=== PATIENT | male | born 1955 | race Hispanic/Latino ===

== ENCOUNTER → 2017-05-30 | Outpatient (CLI) | payer OTHER ==
[~2017-05-30] MED LIST: AMLO10TA2 PO; AZIT250T9 PO; CETI5TAB12 PO; DOXA2TAB2 PO; DOXY100T2 PO; FOLI1CAP23 PO; FOLI1TAB61 PO; GABA-529 PO; HYDR-4153 PO; METO-409 PO; OSEL30CA2 PO; SIMV10TA6 PO; WARF-57 PO; WARF5TAB76 PO; WARF7.5T49 PO
== END | disposition home or self-care (01) ==
LOC: RAH 16:07
PROVIDERS: ATTEND Internal Medicine
DX: M25.562 Pain in left knee (principal); R07.9 Chest pain, unspecified; R07.81 Pleurodynia
CPT/HCPCS: 71046; 71100; 73562

== ENCOUNTER 2017-06-04 22:50 | Inpatient (IN) | payer OTHER ==
[~2017-06-04] VITALS: Ht 180.3 cm; Wt 70.5 kg
[~2017-06-04 22:50] MED LIST changes: -FOLI1CAP23 PO; -GABA-529 PO; -WARF-57 PO; -WARF5TAB76 PO; -WARF7.5T49 PO
[2017-06-04 23:39] LABS: BASOPHILS % (AUTO) 0.6 % (0.0-5.0); EOSINOPHILS % (AUTO) 0.3 % (0.0-8.0); HEMATOCRIT 35.5 % (42-54); LYMPHOCYTES % (AUTO) 4.6 % (21.0-51.0); MEAN CORPUSCULAR HEMOGLOBIN 32.1 pg (27.0-33.0); MEAN CORPUSCULAR VOLUME 94.5 fL (79-99); MONOCYTES % (AUTO) 6.2 % (3.0-13.0); NEUTROPHILS % (AUTO) 88.3 % (40.0-77.0); PLATELET COUNT (AUTO) 183 K/uL (130-400); RED BLOOD CELL COUNT(AUTO) 3.75 MIL/uL (4.50-6.20); RED CELL DISTRIBUTION WIDTH 15.1 % (11.0-15.5); WHITE BLOOD COUNT (AUTO) 8.1 K/uL (4.8-10.8)
[2017-06-04 23:41] LABS: INR 1.09 (0.85-1.15); PARTIAL THROMBOPLASTIN TIME 24.2 SEC (26.3-35.5); PROTHROMBIN TIME 11.4 SEC (9.6-11.6)
[2017-06-04] MEDS ORDERED: NITROGLYCERIN 1GM/1 INCH PACKET TD ONE (23:51)
[2017-06-04 23:52] LABS: ALBUMIN 3.8 g/dL (3.5-5.0); BILIRUBIN,TOTAL 0.7 mg/dL (0.2-1.0); CREATINE KINASE MB 1.2 ng/mL (0.5-3.6); CREATININE 6.5 mg/dL (0.5-1.5); TOTAL PROTEIN, SERUM 7.5 g/dL (6.0-8.3)
[2017-06-04 23:57] LABS: POTASSIUM 5.9 mmol/L (3.5-5.1)
[2017-06-05] VITALS (25 sets, daily range): BP systolic 137–181; BP diastolic 69–101
[2017-06-05 00:02] LABS: ABG BASE EXCESS 2.3 mmol/L (-2.0-3.0); ABG HCO3 27.7 mmol/L (21.0-28.0); ABG PCO2 46 mmHg (35-48)
[2017-06-05 00:16] LABS: B-TYPE NATRIURETIC PEPTIDE > 5000 pg/mL (0-100)
[2017-06-05] MEDS ORDERED: MEROPENEM 1 GM VIAL ONE (00:23)
[2017-06-05] MEDS ORDERED: VANCOMYCIN 1GM+NS 250ML 250 ML IV ONE (01:04)
[2017-06-05] MEDS ORDERED: MEROPENEM 500MG+NS 50ML 50 ML IV SCH (01:30)
[2017-06-05] MEDS: INSULIN HUMULIN R 100 UNIT/ML 3ML SQ SCH ×4 (01:30→18:25)
[2017-06-05] MEDS ORDERED: GLUCAGON 1MG KIT 1 MG ML IM PRN (01:30)
[2017-06-05] MEDS ORDERED: GUAIFENESIN-DM 200/20 MG 10 ML PO PRN (01:30)
[2017-06-05] MEDS ORDERED: VANCOMYCIN 1GM+NS 250ML 250 ML IV SCH (01:30)
[2017-06-05] MEDS ORDERED: DEXTROSE 50%-WATER 50 ML DISP.SYRIN IV PRN (01:30)
[2017-06-05] MEDS ORDERED: ONDANSETRON HCL 4 MG/2 ML VIAL IV PRN (01:30)
[2017-06-05] MEDS ORDERED: VANCOMYCIN PROTOCOL PER PHARMACY IV SCH (03:00)
[2017-06-05] MEDS: MEROPENEM 500 MG VIAL IVP SCH ×2 (03:00→15:00)
[2017-06-05] MEDS: HYDRALAZINE HCL 20 MG/ML VIAL IV PRN (03:53)
[2017-06-05 06:00] LABS: ABG BASE EXCESS 4.8 mmol/L (-2.0-3.0); ABG HCO3 29.7 mmol/L (21.0-28.0); ABG OXYGEN SATURATION 95.3 % (95.0-99.0); ABG PCO2 45 mmHg (35-48)
[2017-06-05] MEDS ORDERED: COMPOUND PO MISCELLANEOUS 1 EACH MISC MISC PRN (06:30)
[2017-06-05] MEDS: IPRATROPIUM/ALBUTEROL SULFATE 3 ML SOLUTION IH SCH ×4 (07:19→23:25)
[2017-06-05] MEDS: ENOXAPARIN SODIUM 40 MG/0.4 ML SYRINGE SQ SCH (08:57)
[2017-06-05] MEDS: FAMOTIDINE/PF 20 MG/2 ML VIAL IV SCH (08:57)
[2017-06-05] MEDS ORDERED: OSELTAMIVIR PHOSPHATE 75 MG CAP PO SCH (09:00)
[2017-06-05] MEDS: OSELTAMIVIR SUSP 15 MG/ML (6 CAPS/29ML) PO SCH ×2 (11:08)
[2017-06-05] MEDS ORDERED: 0.9% SODIUM CHLORIDE 250 ML IV BAG IV PRN (15:45)
[2017-06-05] MEDS ORDERED: SODIUM CHLORIDE 0.9% 1000ML 1,000 ML IV PRN (15:45)
[2017-06-05] MEDS ORDERED: ALBUMIN (HUMAN) 25% 100 ML IV PRN (15:45)
[2017-06-05] MEDS: ACETAMINOPHEN 325 MG TAB PO PRN (20:28)
[2017-06-05 23:36] LABS: APPEARANCE,URINE Clear (CLEAR); BILIRUBIN,URINE Negative (NEGATIVE); COLOR,URINE Yellow (YELLOW); GLUCOSE, URINE (UA) 250 mg/dL (NEGATIVE); KETONES,URINE Negative (NEGATIVE); LEUKOCYTE ESTERASE ,URINE Negative (NEGATIVE); NITRATE,URINE Negative (NEGATIVE); OCCULT BLOOD,URINE Negative (NEGATIVE); PH,URINE >=9.0 (5.0-8.0); PROTEIN,URINE >=1000 (NEGATIVE); UROBILINOGEN,URINE 0.2 mg/dL (0.2-1.0)
[2017-06-05 23:48] LABS: BACTERIA,URINE Rare /HPF (None Seen); RBC,URINE None Seen /HPF (0-1)
[2017-06-06] VITALS (23 sets, daily range): BP systolic 106–186; BP diastolic 63–105
[2017-06-06] MEDS: ACETAMINOPHEN 325 MG TAB PO PRN (01:15)
[2017-06-06] MEDS: INSULIN HUMULIN R 100 UNIT/ML 3ML SQ SCH ×5 (01:30→21:00)
[2017-06-06] MEDS: MEROPENEM 500 MG VIAL IVP SCH ×2 (03:38→17:12)
[2017-06-06 03:54] LABS: MEAN CORPUSCULAR HEMOGLOBIN 32.1 pg (27.0-33.0); MEAN CORPUSCULAR HGB CONC 33.9 g/dL (32.0-36.0); MEAN CORPUSCULAR VOLUME 94.6 fL (79-99); PLATELET COUNT (AUTO) 148 K/uL (130-400); RED BLOOD CELL COUNT(AUTO) 3.28 MIL/uL (4.50-6.20); RED CELL DISTRIBUTION WIDTH 15.7 % (11.0-15.5); WHITE BLOOD COUNT (AUTO) 6.5 K/uL (4.8-10.8)
[2017-06-06 04:10] LABS: ALBUMIN 2.8 g/dL (3.5-5.0); CREATININE 6.5 mg/dL (0.5-1.5); MAGNESIUM 2.1 mg/dL (1.80-2.40); PHOSPHORUS 6.5 mg/dL (2.5-4.9); POTASSIUM 4.6 mmol/L (3.5-5.1)
[2017-06-06] MEDS: IPRATROPIUM/ALBUTEROL SULFATE 3 ML SOLUTION IH SCH ×3 (06:47→18:52)
[2017-06-06 08:16] LABS: ABG BASE EXCESS 1.8 mmol/L (-2.0-3.0); ABG HCO3 27.5 mmol/L (21.0-28.0); ABG OXYGEN SATURATION 89.1 % (95.0-99.0); ABG PCO2 47 mmHg (35-48)
[2017-06-06] MEDS: OSELTAMIVIR SUSP 15 MG/ML (6 CAPS/29ML) PO SCH ×2 (09:00)
[2017-06-06] MEDS: FAMOTIDINE/PF 20 MG/2 ML VIAL IV SCH (09:00)
[2017-06-06] MEDS: ENOXAPARIN SODIUM 40 MG/0.4 ML SYRINGE SQ SCH (09:00)
[2017-06-06] MEDS: HYDRALAZINE HCL 20 MG/ML VIAL IV PRN (09:01)
[2017-06-06] MEDS: DOXAZOSIN MESYLATE 2 MG TABLET PO SCH (17:12)
[2017-06-06] MEDS: ATORVASTATIN CALCIUM 10 MG TABLET PO SCH (17:12)
[2017-06-06] MEDS: EPOETIN ALFA 3,000 UNIT/ML ML SQ SCH (17:59)
[2017-06-06] MEDS: HYDRALAZINE HCL 25 MG TABLET PO SCH (20:23)
[2017-06-07] VITALS (26 sets, daily range): BP systolic 115–174; BP diastolic 55–95
[2017-06-07] MEDS: IPRATROPIUM/ALBUTEROL SULFATE 3 ML SOLUTION IH SCH ×4 (00:43→19:17)
[2017-06-07] MEDS: MEROPENEM 500 MG VIAL IVP SCH ×2 (02:47→14:03)
[2017-06-07] MEDS: HYDRALAZINE HCL 20 MG/ML VIAL IV PRN ×2 (02:47→11:58)
[2017-06-07 03:43] LABS: MEAN CORPUSCULAR HEMOGLOBIN 32.2 pg (27.0-33.0); MEAN CORPUSCULAR HGB CONC 34.2 g/dL (32.0-36.0); MEAN CORPUSCULAR VOLUME 94.3 fL (79-99); NUCLEATED RED BLOOD CELLS 0.1 % (0.0-0.19); PLATELET COUNT (AUTO) 135 K/uL (130-400); RED CELL DISTRIBUTION WIDTH 15.5 % (11.0-15.5); WHITE BLOOD COUNT (AUTO) 3.6 K/uL (4.8-10.8)
[2017-06-07 04:00] LABS: CREATININE 5.4 mg/dL (0.5-1.5); POTASSIUM 4.1 mmol/L (3.5-5.1)
[2017-06-07] MEDS: INSULIN HUMULIN R 100 UNIT/ML 3ML SQ SCH ×4 (04:58→21:00)
[2017-06-07] MEDS: VANCOMYCIN 1GM+NS 250ML 250 ML IV SCH (05:37)
[2017-06-07] MEDS: HYDRALAZINE HCL 25 MG TABLET PO SCH ×2 (07:58→20:42)
[2017-06-07] MEDS: METOPROLOL TARTRATE 50 MG TAB PO SCH ×2 (07:58→20:42)
[2017-06-07] MEDS: AMLODIPINE BESYLATE 5 MG TAB PO SCH (07:58)
[2017-06-07] MEDS: FAMOTIDINE/PF 20 MG/2 ML VIAL IV SCH (07:58)
[2017-06-07] MEDS: FOLIC ACID/VITAMIN B COMP W-C 1 MG CAPSULE PO SCH (07:58)
[2017-06-07] MEDS: OSELTAMIVIR SUSP 15 MG/ML (6 CAPS/29ML) PO SCH ×2 (08:00)
[2017-06-07] MEDS ORDERED: WARFARIN SODIUM 5 MG TAB PO SCH (09:00)
[2017-06-07] MEDS ORDERED: HEPARIN 25000 UNITS/250 ML D5W 250 ML IV SCH (09:00)
[2017-06-07] MEDS: ACETAMINOPHEN 325 MG TAB PO PRN (11:58)
[2017-06-07] MEDS ORDERED: HEPARIN SODIUM 5000UNIT/ML 1ML VIAL IV STA (14:27)
[2017-06-07] MEDS: ATORVASTATIN CALCIUM 10 MG TABLET PO SCH (17:26)
[2017-06-07] MEDS: DOXAZOSIN MESYLATE 2 MG TABLET PO SCH (17:26)
[2017-06-07] MEDS ORDERED: LORAZEPAM 2 MG/ML 1 ML VIAL IM PRN (18:00)
[2017-06-07] MEDS: MORPHINE SULFATE 2 MG/ML 1ML SYG IVP PRN (18:00)
[2017-06-08] VITALS (19 sets, daily range): BP systolic 151–176; BP diastolic 73–100
[2017-06-08] MEDS: IPRATROPIUM/ALBUTEROL SULFATE 3 ML SOLUTION IH SCH ×3 (01:37→11:20)
[2017-06-08] MEDS: MEROPENEM 500 MG VIAL IVP SCH ×2 (03:02→15:49)
[2017-06-08 04:03] LABS: HEMATOCRIT 29.4 % (42-54); MEAN CORPUSCULAR HGB CONC 36.2 g/dL (32.0-36.0); MEAN CORPUSCULAR VOLUME 93.9 fL (79-99); PLATELET COUNT (AUTO) 113 K/uL (130-400); RED BLOOD CELL COUNT(AUTO) 3.13 MIL/uL (4.50-6.20); RED CELL DISTRIBUTION WIDTH 15.1 % (11.0-15.5); WHITE BLOOD COUNT (AUTO) 2.7 K/uL (4.8-10.8)
[2017-06-08 04:04] LABS: CREATININE 7.3 mg/dL (0.5-1.5); POTASSIUM 4.2 mmol/L (3.5-5.1)
[2017-06-08 04:06] LABS: PARTIAL THROMBOPLASTIN TIME 78.8 SEC (26.3-35.5); PROTHROMBIN TIME 10.5 SEC (9.6-11.6)
[2017-06-08] MEDS: INSULIN HUMULIN R 100 UNIT/ML 3ML SQ SCH ×4 (06:05→21:00)
[2017-06-08] MEDS: WARFARIN SODIUM 5 MG TAB PO SCH ×2 (09:00→16:22)
[2017-06-08] MEDS: HYDRALAZINE HCL 25 MG TABLET PO SCH ×2 (10:56→20:30)
[2017-06-08] MEDS: FOLIC ACID/VITAMIN B COMP W-C 1 MG CAPSULE PO SCH (10:56)
[2017-06-08] MEDS: AMLODIPINE BESYLATE 5 MG TAB PO SCH (10:56)
[2017-06-08] MEDS: FAMOTIDINE/PF 20 MG/2 ML VIAL IV SCH (10:56)
[2017-06-08] MEDS: OSELTAMIVIR SUSP 15 MG/ML (6 CAPS/29ML) PO SCH ×2 (10:58)
[2017-06-08] MEDS: METOPROLOL TARTRATE 50 MG TAB PO SCH ×2 (10:58→20:30)
[2017-06-08] MEDS ORDERED: METOPROLOL TARTRATE 25 MG TAB ONE (12:22)
[2017-06-08 15:33] LABS: GLUCOSE,BODY FLUID 115 mg/dL (1-40)
[2017-06-08] MEDS: EPOETIN ALFA 3,000 UNIT/ML ML SQ SCH (15:50)
[2017-06-08] MEDS: ATORVASTATIN CALCIUM 10 MG TABLET PO SCH (16:20)
[2017-06-08] MEDS: DOXAZOSIN MESYLATE 2 MG TABLET PO SCH (16:20)
[2017-06-08 17:22] LABS: APPEARANCE BODY FLUID SLIGHTLY CLOUDY (CLEAR); COLOR,BODY FLUID YELLOW (LT YELLOW); SPECIMENTYPE,BODY FLUID THORACENTESIS
[2017-06-08 17:23] LABS: BODY FLUID RBC 79 /cu. mm.; BODY FLUID WBC 269 /cu. mm.; TOTAL VOLUME,BODY FLUID 925 mL
[2017-06-08 17:26] LABS: PH, BODY FLUID 8
[2017-06-08] MEDS: IPRATROPIUM 0.5 MG/2.5 ML INH IH PRN ×2 (18:09→23:11)
[2017-06-08 19:25] LABS: BF LYMPHOCYTE 57 %; BF MONOCYTE 3 %; BF OTHER CELLS 23
[2017-06-08] MEDS: ACETAMINOPHEN 325 MG TAB PO PRN (19:49)
[2017-06-09 04:15] VITALS: BP 146/66
[2017-06-09 04:21] LABS: WHITE BLOOD COUNT (AUTO) 2.7 K/uL (4.8-10.8)
[2017-06-09 04:25] LABS: POTASSIUM 3.9 mmol/L (3.5-5.1)
[2017-06-09 04:30] LABS: HEMATOCRIT 31.3 % (42-54); MEAN CORPUSCULAR HGB CONC 35.3 g/dL (32.0-36.0); MEAN CORPUSCULAR VOLUME 93.4 fL (79-99); PLATELET COUNT (AUTO) 109 K/uL (130-400); RED BLOOD CELL COUNT(AUTO) 3.35 MIL/uL (4.50-6.20); RED CELL DISTRIBUTION WIDTH 14.8 % (11.0-15.5)
[2017-06-09 04:49] LABS: BAND NEUTROPHILS % (MANUAL) 4 % (0-2); EOSINOPHILS % (MANUAL) 4 % (1-6); LYMPHOCYTES % (MANUAL) 20 % (22-44); MONOCYTES % (MANUAL) 8 % (2-9); SEGMENTED NEUTROPHILS % 64 % (40-70)
[2017-06-09 04:50] LABS: MAN.DIFF COMMENT-IMPRESSION MANUAL DIFFERENTIAL; PLATELET MORPHOLOGY COMMENT DECREASED
[2017-06-09] MEDS: MEROPENEM 500 MG VIAL IVP SCH ×4 (05:10→22:20)
[2017-06-09] MEDS: VANCOMYCIN 1GM+NS 250ML 250 ML IV SCH (05:34)
[2017-06-09] MEDS: INSULIN HUMULIN R 100 UNIT/ML 3ML SQ SCH ×4 (06:35→20:47)
[2017-06-09] MEDS: IPRATROPIUM 0.5 MG/2.5 ML INH IH PRN ×3 (06:49→18:58)
[2017-06-09 07:00] VITALS: BP 163/84
[2017-06-09 09:32] LABS: PROTHROMBIN TIME 10.5 SEC (9.6-11.6)
[2017-06-09] MEDS: FOLIC ACID/VITAMIN B COMP W-C 1 MG CAPSULE PO SCH (09:38)
[2017-06-09] MEDS: METOPROLOL TARTRATE 50 MG TAB PO SCH ×2 (09:38→20:29)
[2017-06-09] MEDS: AMLODIPINE BESYLATE 5 MG TAB PO SCH (09:38)
[2017-06-09] MEDS: HYDRALAZINE HCL 25 MG TABLET PO SCH ×2 (09:38→20:29)
[2017-06-09] MEDS: FAMOTIDINE/PF 20 MG/2 ML VIAL IV SCH (09:38)
[2017-06-09] MEDS: OSELTAMIVIR SUSP 15 MG/ML (6 CAPS/29ML) PO SCH ×2 (09:42)
[2017-06-09 11:30] VITALS: BP 166/94
[2017-06-09] MEDS: WARFARIN SODIUM 5 MG TAB PO SCH (15:41)
[2017-06-09] MEDS: DOXAZOSIN MESYLATE 2 MG TABLET PO SCH (15:41)
[2017-06-09] MEDS: ATORVASTATIN CALCIUM 10 MG TABLET PO SCH (15:42)
[2017-06-09 16:00] VITALS: BP 144/75
[2017-06-09 16:15] LABS: INR 1.02 (0.85-1.15); PROTHROMBIN TIME 10.7 SEC (9.6-11.6)
[2017-06-09] MEDS ORDERED: HEPARIN 25000 UNITS/250 ML D5W 250 ML IV PRN (18:45)
[2017-06-09 19:28] VITALS: BP 134/66
[2017-06-09] MEDS ORDERED: HEPARIN SODIUM 5000UNIT/ML 1ML VIAL ONE (20:25)
[2017-06-09] MEDS ORDERED: HEPARIN SODIUM 5000UNIT/ML 1ML VIAL IV ONE (21:00)
[2017-06-09 23:39] VITALS: BP 140/70
[2017-06-10] VITALS (7 sets, daily range): BP systolic 138–172; BP diastolic 69–85
[2017-06-10] MEDS: IPRATROPIUM 0.5 MG/2.5 ML INH IH PRN ×3 (00:21→19:22)
[2017-06-10 02:41] LABS: MEAN CORPUSCULAR HEMOGLOBIN 31.8 pg (27.0-33.0); MEAN CORPUSCULAR HGB CONC 34.4 g/dL (32.0-36.0); MEAN CORPUSCULAR VOLUME 92.4 fL (79-99); PLATELET COUNT (AUTO) 96 K/uL (130-400); RED BLOOD CELL COUNT(AUTO) 3.36 MIL/uL (4.50-6.20); RED CELL DISTRIBUTION WIDTH 15.3 % (11.0-15.5)
[2017-06-10 02:56] LABS: CREATININE 8.1 mg/dL (0.5-1.5)
[2017-06-10] MEDS: INSULIN HUMULIN R 100 UNIT/ML 3ML SQ SCH ×4 (06:02→21:00)
[2017-06-10] MEDS: EPOETIN ALFA 3,000 UNIT/ML ML SQ SCH (09:00)
[2017-06-10] MEDS ORDERED: IOPAMIDOL-370 100 ML VIAL IV ONE (09:28)
[2017-06-10 11:02] LABS: INR 1.18 (0.85-1.15); PROTHROMBIN TIME 12.4 SEC (9.6-11.6)
[2017-06-10 11:36] LABS: PARTIAL THROMBOPLASTIN TIME 115.1 SEC (26.3-35.5)
[2017-06-10] MEDS ORDERED: LORAZEPAM 2 MG/ML 1 ML VIAL IVP PRN (15:00)
[2017-06-10] MEDS: FOLIC ACID/VITAMIN B COMP W-C 1 MG CAPSULE PO SCH (15:07)
[2017-06-10] MEDS: AMLODIPINE BESYLATE 5 MG TAB PO SCH (15:07)
[2017-06-10] MEDS: METOPROLOL TARTRATE 50 MG TAB PO SCH ×2 (15:09→21:21)
[2017-06-10] MEDS: FAMOTIDINE/PF 20 MG/2 ML VIAL IV SCH (15:24)
[2017-06-10] MEDS: HYDRALAZINE HCL 25 MG TABLET PO SCH ×2 (15:24→21:21)
[2017-06-10] MEDS: MEROPENEM 500 MG VIAL IVP SCH ×2 (15:33→21:20)
[2017-06-10] MEDS: WARFARIN SODIUM 5 MG TAB PO SCH (15:33)
[2017-06-10] MEDS: DOXAZOSIN MESYLATE 2 MG TABLET PO SCH (16:04)
[2017-06-10] MEDS: ATORVASTATIN CALCIUM 10 MG TABLET PO SCH (16:04)
[2017-06-10] MEDS: FLUTICASONE PROPIONATE 50MCG/SPRAY 16 GM BOTTLE EN SCH (21:20)
[2017-06-11 01:28] LABS: HEMATOCRIT 30.1 % (42-54); MEAN CORPUSCULAR HGB CONC 35.9 g/dL (32.0-36.0); PLATELET COUNT (AUTO) 113 K/uL (130-400); RED BLOOD CELL COUNT(AUTO) 3.28 MIL/uL (4.50-6.20); RED CELL DISTRIBUTION WIDTH 14.9 % (11.0-15.5); WHITE BLOOD COUNT (AUTO) 3.1 K/uL (4.8-10.8)
[2017-06-11 01:37] LABS: POTASSIUM 4.4 mmol/L (3.5-5.1)
[2017-06-11 01:56] LABS: CREATININE 8.7 mg/dL (0.5-1.5)
[2017-06-11 01:59] LABS: INR 1.41 (0.85-1.15); PROTHROMBIN TIME 14.7 SEC (9.6-11.6)
[2017-06-11 03:35] VITALS: BP 162/87
[2017-06-11] MEDS: INSULIN HUMULIN R 100 UNIT/ML 3ML SQ SCH ×4 (05:41→20:51)
[2017-06-11] MEDS: VANCOMYCIN 1GM+NS 250ML 250 ML IV SCH (05:55)
[2017-06-11 07:00] VITALS: BP 158/88
[2017-06-11 07:32] LABS: INR 1.54 (0.85-1.15)
[2017-06-11] MEDS: FAMOTIDINE/PF 20 MG/2 ML VIAL IV SCH (09:40)
[2017-06-11] MEDS: MEROPENEM 500 MG VIAL IVP SCH ×2 (09:40→21:34)
[2017-06-11] MEDS: METOPROLOL TARTRATE 50 MG TAB PO SCH ×2 (09:40→21:34)
[2017-06-11] MEDS: AMLODIPINE BESYLATE 5 MG TAB PO SCH (09:41)
[2017-06-11] MEDS: FOLIC ACID/VITAMIN B COMP W-C 1 MG CAPSULE PO SCH (09:41)
[2017-06-11] MEDS: FLUTICASONE PROPIONATE 50MCG/SPRAY 16 GM BOTTLE EN SCH ×2 (09:41→21:35)
[2017-06-11] MEDS: HYDRALAZINE HCL 25 MG TABLET PO SCH ×2 (09:41→21:34)
[2017-06-11 11:00] VITALS: BP 148/78
[2017-06-11 16:00] VITALS: BP 151/85
[2017-06-11] MEDS: ATORVASTATIN CALCIUM 10 MG TABLET PO SCH (17:14)
[2017-06-11] MEDS: WARFARIN SODIUM 5 MG TAB PO SCH (17:14)
[2017-06-11] MEDS: DOXAZOSIN MESYLATE 2 MG TABLET PO SCH (17:14)
[2017-06-11 19:45] VITALS: BP 162/87
[2017-06-11] MEDS: MORPHINE SULFATE 2 MG/ML 1ML SYG IVP PRN (22:27)
[2017-06-12 00:19] VITALS: BP 174/83
[2017-06-12 04:57] VITALS: BP 165/85
[2017-06-12 05:32] LABS: HEMATOCRIT 30.3 % (42-54); MEAN CORPUSCULAR HEMOGLOBIN 32.7 pg (27.0-33.0); MEAN CORPUSCULAR HGB CONC 35.6 g/dL (32.0-36.0); MEAN CORPUSCULAR VOLUME 91.8 fL (79-99); PLATELET COUNT (AUTO) 135 K/uL (130-400); RED CELL DISTRIBUTION WIDTH 14.9 % (11.0-15.5); WHITE BLOOD COUNT (AUTO) 4.5 K/uL (4.8-10.8)
[2017-06-12 05:48] LABS: INR 2.15 (0.85-1.15); PARTIAL THROMBOPLASTIN TIME 69.2 SEC (26.3-35.5); PROTHROMBIN TIME 22.2 SEC (9.6-11.6)
[2017-06-12 06:00] LABS: POTASSIUM 4.6 mmol/L (3.5-5.1)
[2017-06-12] MEDS: INSULIN HUMULIN R 100 UNIT/ML 3ML SQ SCH ×4 (06:07→21:00)
[2017-06-12 06:09] LABS: CREATININE 10.3 mg/dL (0.5-1.5)
[2017-06-12 08:00] VITALS: BP 149/67
[2017-06-12] MEDS: FOLIC ACID/VITAMIN B COMP W-C 1 MG CAPSULE PO SCH (08:22)
[2017-06-12] MEDS: FLUTICASONE PROPIONATE 50MCG/SPRAY 16 GM BOTTLE EN SCH ×2 (08:22→20:01)
[2017-06-12] MEDS: FAMOTIDINE/PF 20 MG/2 ML VIAL IV SCH (08:22)
[2017-06-12] MEDS: METOPROLOL TARTRATE 50 MG TAB PO SCH ×2 (08:23→20:00)
[2017-06-12] MEDS: AMLODIPINE BESYLATE 5 MG TAB PO SCH (08:23)
[2017-06-12] MEDS: HYDRALAZINE HCL 25 MG TABLET PO SCH ×2 (08:23→20:00)
[2017-06-12] MEDS: MEROPENEM 500 MG VIAL IVP SCH ×2 (08:27→20:01)
[2017-06-12 11:00] VITALS: BP 147/66
[2017-06-12] MEDS: WARFARIN SODIUM 5 MG TAB PO SCH (15:50)
[2017-06-12 16:00] VITALS: BP 155/80
[2017-06-12] MEDS: IPRATROPIUM 0.5 MG/2.5 ML INH IH PRN (16:06)
[2017-06-12] MEDS: DOXAZOSIN MESYLATE 2 MG TABLET PO SCH (16:59)
[2017-06-12] MEDS: ATORVASTATIN CALCIUM 10 MG TABLET PO SCH (17:25)
[2017-06-12] MEDS: ZOLPIDEM TARTRATE 5 MG TAB PO PRN (20:00)
[2017-06-12 20:12] VITALS: BP 152/76
[2017-06-13] VITALS (7 sets, daily range): BP systolic 143–168; BP diastolic 68–90
[2017-06-13 05:49] LABS: INR 3.14 (0.85-1.15); PARTIAL THROMBOPLASTIN TIME 59.8 SEC (26.3-35.5); PROTHROMBIN TIME 32.2 SEC (9.6-11.6)
[2017-06-13] MEDS: INSULIN HUMULIN R 100 UNIT/ML 3ML SQ SCH ×4 (05:59→20:13)
[2017-06-13] MEDS ORDERED: HEPARIN SODIUM 5000UNIT/ML 1ML VIAL ONE (06:17)
[2017-06-13] MEDS ORDERED: COMPOUND IV REFRIGERATED 1 EACH IVSOLN MISC PRN (07:00)
[2017-06-13] MEDS: MEROPENEM 500 MG VIAL IVP SCH ×2 (11:58→21:17)
[2017-06-13] MEDS: FAMOTIDINE/PF 20 MG/2 ML VIAL IV SCH (11:58)
[2017-06-13] MEDS: FLUTICASONE PROPIONATE 50MCG/SPRAY 16 GM BOTTLE EN SCH ×2 (11:58→20:21)
[2017-06-13] MEDS: FOLIC ACID/VITAMIN B COMP W-C 1 MG CAPSULE PO SCH (11:58)
[2017-06-13] MEDS: METOPROLOL TARTRATE 50 MG TAB PO SCH ×2 (11:59→20:13)
[2017-06-13] MEDS: AMLODIPINE BESYLATE 5 MG TAB PO SCH (11:59)
[2017-06-13] MEDS ORDERED: VANCOMYCIN 750MG + NS 250 ML IV SCH ×2 (12:00)
[2017-06-13] MEDS: HYDRALAZINE HCL 25 MG TABLET PO SCH ×2 (12:00→20:13)
[2017-06-13] MEDS: EPOETIN ALFA 3,000 UNIT/ML ML SQ SCH (12:03)
[2017-06-13] MEDS ORDERED: WARFARIN SODIUM 2 MG TAB PO SCH (16:00)
[2017-06-13] MEDS: ATORVASTATIN CALCIUM 10 MG TABLET PO SCH (17:27)
[2017-06-13] MEDS: DOXAZOSIN MESYLATE 2 MG TABLET PO SCH (17:41)
[2017-06-13] MEDS: ZOLPIDEM TARTRATE 5 MG TAB PO PRN (20:20)
[2017-06-13] MEDS: HYDRALAZINE HCL 20 MG/ML VIAL IV PRN (23:55)
[2017-06-14 04:00] VITALS: BP 152/81
[2017-06-14 05:52] LABS: INR 3.25 (0.85-1.15); PARTIAL THROMBOPLASTIN TIME 54.6 SEC (26.3-35.5); PROTHROMBIN TIME 33.3 SEC (9.6-11.6)
[2017-06-14] MEDS: INSULIN HUMULIN R 100 UNIT/ML 3ML SQ SCH ×2 (05:57→11:30)
[2017-06-14 07:50] VITALS: BP 150/73
[2017-06-14] MEDS: FLUTICASONE PROPIONATE 50MCG/SPRAY 16 GM BOTTLE EN SCH (09:00)
[2017-06-14] MEDS: METOPROLOL TARTRATE 50 MG TAB PO SCH (10:28)
[2017-06-14] MEDS: HYDRALAZINE HCL 25 MG TABLET PO SCH (10:29)
[2017-06-14] MEDS: FOLIC ACID/VITAMIN B COMP W-C 1 MG CAPSULE PO SCH (10:29)
[2017-06-14] MEDS: AMLODIPINE BESYLATE 5 MG TAB PO SCH (10:29)
[2017-06-14] MEDS: FAMOTIDINE/PF 20 MG/2 ML VIAL IV SCH (10:30)
[2017-06-14] MEDS: MEROPENEM 500 MG VIAL IVP SCH (10:43)
[2017-06-14 11:29] VITALS: BP 160/95
== END 2017-06-14 13:01 | disposition home or self-care (01) | DRG 871 ==
LOC: EDH 22:50 → EDHIP 06-05 00:20 → 2BH 06-05 02:29 → 2CH 06-09 02:28 → 4BH 06-11 20:26
PROVIDERS: ADMIT Internal Medicine; ATTEND Internal Medicine
PROC: 5A1D70Z Performance of Urinary Filtration, Intermittent, Less than 6 Hours Per Day (ICD-10-PCS; 2017-06-05)
PROC: 5A09357 Assistance with Respiratory Ventilation, Less than 24 Consecutive Hours, Continuous Positive Airway Pressure (ICD-10-PCS; 2017-06-05)
PROC: 5A1D70Z Performance of Urinary Filtration, Intermittent, Less than 6 Hours Per Day (ICD-10-PCS; 2017-06-06)
PROC: 0W9930Z Drainage of Right Pleural Cavity with Drainage Device, Percutaneous Approach (ICD-10-PCS; principal; 2017-06-08)
PROC: 0WH933Z Insertion of Infusion Device into Right Pleural Cavity, Percutaneous Approach (ICD-10-PCS; 2017-06-08)
PROC: 5A1D70Z Performance of Urinary Filtration, Intermittent, Less than 6 Hours Per Day (ICD-10-PCS; 2017-06-08)
PROC: 5A1D70Z Performance of Urinary Filtration, Intermittent, Less than 6 Hours Per Day (ICD-10-PCS; 2017-06-10)
PROC: 5A1D70Z Performance of Urinary Filtration, Intermittent, Less than 6 Hours Per Day (ICD-10-PCS; 2017-06-13)
DX: A41.9 Sepsis, unspecified organism (principal); J96.01 Acute respiratory failure with hypoxia; J90 Pleural effusion, not elsewhere classified; J81.1 Chronic pulmonary edema; I82.401 Acute embolism and thrombosis of unspecified deep veins of right lower extremity; D70.9 Neutropenia, unspecified; I12.0 Hypertensive chronic kidney disease with stage 5 chronic kidney disease or end stage renal disease; D69.6 Thrombocytopenia, unspecified; E11.21 Type 2 diabetes mellitus with diabetic nephropathy; N18.6 End stage renal disease; J91.8 Pleural effusion in other conditions classified elsewhere; N39.0 Urinary tract infection, site not specified; B96.5 Pseudomonas (aeruginosa) (mallei) (pseudomallei) as the cause of diseases classified elsewhere; D64.9 Anemia, unspecified; E11.22 Type 2 diabetes mellitus with diabetic chronic kidney disease; E11.51 Type 2 diabetes mellitus with diabetic peripheral angiopathy without gangrene; E11.65 Type 2 diabetes mellitus with hyperglycemia; E78.5 Hyperlipidemia, unspecified; E87.5 Hyperkalemia; E87.70 Fluid overload, unspecified; J10.1 Influenza due to other identified influenza virus with other respiratory manifestations; J20.9 Acute bronchitis, unspecified; Y95 Nosocomial condition; Z79.01 Long term (current) use of anticoagulants; Z89.511 Acquired absence of right leg below knee; Z87.01 Personal history of pneumonia (recurrent); Z99.2 Dependence on renal dialysis; Z86.718 Personal history of other venous thrombosis and embolism; Z83.3 Family history of diabetes mellitus
CPT/HCPCS: 36415; 36600; 71045; 71046; 71250; 71275; 80048; 80053; 80069; 80202; 81001; 82550; 82553; 82803; 82945; 82948; 83605; 83615; 83690; 83735; 83880; 83986; 84132; 84157; 84484; 85007; 85025; 85027; 85610; 85730; 87040; 87071; 87088; 87186; 87205; 87804; 88108; 88305; 89051; 90935; 93005; 93306; 93970; 94640; 94660; 94664; 99291; A4218; C1729; J0360; J1644; J1650; J2060; J2185; J3370; J3490; J7030; Q9967

== ENCOUNTER → 2017-07-01 | Outpatient (CLI) | payer OTHER ==
[~2017-07-01] MED LIST changes: -AZIT250T9 PO; -CETI5TAB12 PO; -DOXY100T2 PO; +FOLI1CAP23 PO; +GABA-529 PO; -OSEL30CA2 PO; +WARF-57 PO; +WARF5TAB76 PO; +WARF7.5T49 PO
== END ==
LOC: RAH 11:15
PROVIDERS: ATTEND Internal Medicine
DX: T14.90XA Injury, unspecified, initial encounter (principal); X58.XXXA Exposure to other specified factors, initial encounter; Y93.89 Activity, other specified; Y92.89 Other specified places as the place of occurrence of the external cause; Y99.8 Other external cause status; Z91.81 History of falling
CPT/HCPCS: 71100; 73562

== ENCOUNTER 2017-08-01 18:25 | Inpatient (IN) | payer OTHER ==
[~2017-08-01] VITALS: Ht 180.3 cm; Wt 79.5 kg
[~2017-08-01 18:25] MED LIST changes: -FOLI1CAP23 PO; -GABA-529 PO; -WARF-57 PO; -WARF5TAB76 PO; -WARF7.5T49 PO
[2017-08-01 20:47] LABS: BASOPHILS % (AUTO) 0.9 % (0.0-5.0); EOSINOPHILS % (AUTO) 3.5 % (0.0-8.0); HEMATOCRIT 26.1 % (42-54); LYMPHOCYTES % (AUTO) 13.6 % (21.0-51.0); MEAN CORPUSCULAR HEMOGLOBIN 32.6 pg (27.0-33.0); MEAN CORPUSCULAR HGB CONC 35.4 g/dL (32.0-36.0); MONOCYTES % (AUTO) 9.4 % (3.0-13.0); NEUTROPHILS % (AUTO) 72.6 % (40.0-77.0); NUCLEATED RED BLOOD CELLS 0.1 % (0.0-0.19); PLATELET COUNT (AUTO) 203 K/uL (130-400); RED BLOOD CELL COUNT(AUTO) 2.84 MIL/uL (4.50-6.20); RED CELL DISTRIBUTION WIDTH 17.7 % (11.0-15.5); WHITE BLOOD COUNT (AUTO) 4.6 K/uL (4.8-10.8)
[2017-08-01 20:55] LABS: CREATININE 7.4 mg/dL (0.5-1.5); POTASSIUM 5.4 mmol/L (3.5-5.1)
[2017-08-01 20:57] LABS: INR 1.53 (0.85-1.15); PARTIAL THROMBOPLASTIN TIME 33.7 SEC (26.3-35.5); PROTHROMBIN TIME 15.9 SEC (9.6-11.6)
[2017-08-01 21:00] LABS: ALBUMIN 3.5 g/dL (3.5-5.0); BILIRUBIN,TOTAL 0.6 mg/dL (0.2-1.0); TOTAL PROTEIN, SERUM 7.4 g/dL (6.0-8.3)
[2017-08-01] MEDS ORDERED: LORAZEPAM 2 MG/ML 1 ML VIAL ONE (22:37)
[2017-08-01] MEDS ORDERED: ENOXAPARIN SODIUM 100 MG/1 ML SQ ONE (23:41)
[2017-08-02] MEDS ORDERED: DEXTROSE 50%-WATER 50 ML DISP.SYRIN IV PRN (01:30)
[2017-08-02] MEDS ORDERED: ONDANSETRON HCL MDV 20ML 2 MG/ML VIAL IVP PRN (01:30)
[2017-08-02] MEDS ORDERED: LACTULOSE 20 GM/30 ML UDCUP PO PRN (01:30)
[2017-08-02] MEDS ORDERED: GLUCAGON 1MG KIT 1 MG ML IM PRN (01:30)
[2017-08-02] MEDS ORDERED: ACETAMINOPHEN 325 MG TAB ONE (02:02)
[2017-08-02] MEDS ORDERED: ALPRAZOLAM 0.25 MG TABLET ONE (02:03)
[2017-08-02 03:00] LABS: B-TYPE NATRIURETIC PEPTIDE > 5000 pg/mL (0-100)
[2017-08-02 06:31] LABS: BASOPHILS % (AUTO) 1.3 % (0.0-5.0); HEMATOCRIT 25.1 % (42-54); LYMPHOCYTES % (AUTO) 16.4 % (21.0-51.0); MEAN CORPUSCULAR HEMOGLOBIN 31.2 pg (27.0-33.0); MEAN CORPUSCULAR HGB CONC 33.5 g/dL (32.0-36.0); MONOCYTES % (AUTO) 10.1 % (3.0-13.0); NEUTROPHILS % (AUTO) 68.2 % (40.0-77.0); PLATELET COUNT (AUTO) 180 K/uL (130-400); RED CELL DISTRIBUTION WIDTH 18.5 % (11.0-15.5); WHITE BLOOD COUNT (AUTO) 3.9 K/uL (4.8-10.8)
[2017-08-02 06:47] LABS: CREATININE 8.1 mg/dL (0.5-1.5)
[2017-08-02 06:49] LABS: INR 1.55 (0.85-1.15); PROTHROMBIN TIME 16.1 SEC (9.6-11.6)
[2017-08-02] MEDS: INSULIN HUMULIN R 100 UNIT/ML 3ML SQ SCH ×4 (07:30→21:00)
[2017-08-02] MEDS ORDERED: FAMOTIDINE 20MG TAB 20 MG TAB ONE (08:51)
[2017-08-02] MEDS ORDERED: CLONIDINE HCL 0.1 MG TABLET ONE ×3 (08:51→15:27)
[2017-08-02] MEDS: FAMOTIDINE 20MG TAB 20 MG TAB PO SCH ×2 (09:00→20:23)
[2017-08-02 09:41] VITALS: BP 148/73
[2017-08-02] MEDS ORDERED: WARFARIN SODIUM 5 MG TAB ONE (15:28)
[2017-08-02] MEDS ORDERED: WARFARIN SODIUM 5 MG TAB PO SCH (16:00)
[2017-08-02 17:50] VITALS: BP 159/83
[2017-08-02] MEDS ORDERED: LIDOCAINE HCL-MPF 1% 2ML VIAL IJ PRN (18:00)
[2017-08-02] MEDS ORDERED: POTASSIUM CHLORIDE 20MEQ/100ML 100 ML IV PRN (18:00)
[2017-08-02] MEDS ORDERED: POTASSIUM CHLORIDE 20 MEQ ERTAB PO PRN (18:00)
[2017-08-02] MEDS ORDERED: POTASSIUM CHLORIDE 10% ELIXIR 20 MEQ/15 ML UDCUP PO PRN (18:00)
[2017-08-02] MEDS ORDERED: CLONIDINE HCL 0.1 MG TABLET PO PRN (18:00)
[2017-08-02] MEDS ORDERED: ACETAMINOPHEN 325 MG TAB PO PRN (18:15)
[2017-08-02 19:57] VITALS: BP 167/97
[2017-08-02] MEDS: ENOXAPARIN SODIUM 80 MG/0.8 ML SQ SCH (20:24)
[2017-08-02 21:19] VITALS: BP 155/98
[2017-08-03] VITALS (7 sets, daily range): BP systolic 152–194; BP diastolic 77–102
[2017-08-03] MEDS: HYDRALAZINE HCL 20 MG/ML VIAL IV PRN ×2 (04:35→10:27)
[2017-08-03 05:32] LABS: BASOPHILS % (AUTO) 1.1 % (0.0-5.0); HEMATOCRIT 25.5 % (42-54); LYMPHOCYTES % (AUTO) 11.5 % (21.0-51.0); MEAN CORPUSCULAR HEMOGLOBIN 33.1 pg (27.0-33.0); MEAN CORPUSCULAR HGB CONC 35.8 g/dL (32.0-36.0); MEAN CORPUSCULAR VOLUME 92.6 fL (79-99); MONOCYTES % (AUTO) 9.2 % (3.0-13.0); NEUTROPHILS % (AUTO) 76.2 % (40.0-77.0); PLATELET COUNT (AUTO) 181 K/uL (130-400); RED BLOOD CELL COUNT(AUTO) 2.75 MIL/uL (4.50-6.20); RED CELL DISTRIBUTION WIDTH 17.9 % (11.0-15.5); WHITE BLOOD COUNT (AUTO) 4.8 K/uL (4.8-10.8)
[2017-08-03] MEDS: ALPRAZOLAM 0.25 MG TABLET PO PRN ×2 (05:33→15:37)
[2017-08-03] MEDS: INSULIN HUMULIN R 100 UNIT/ML 3ML SQ SCH ×4 (05:37→20:39)
[2017-08-03 05:39] LABS: INR 1.51 (0.85-1.15); PROTHROMBIN TIME 15.7 SEC (9.6-11.6)
[2017-08-03 05:54] LABS: CREATININE 9.9 mg/dL (0.5-1.5); POTASSIUM 6.4 mmol/L (3.5-5.1)
[2017-08-03] MEDS: FAMOTIDINE 20MG TAB 20 MG TAB PO SCH ×2 (10:25→20:15)
[2017-08-03] MEDS: ACETAMINOPHEN 325 MG TAB PO PRN ×2 (10:26→18:48)
[2017-08-03] MEDS: ATORVASTATIN CALCIUM 10 MG TABLET PO SCH (17:11)
[2017-08-03] MEDS: DOXAZOSIN MESYLATE 2 MG TABLET PO SCH (17:23)
[2017-08-03] MEDS: WARFARIN SODIUM 7.5 MG TAB PO SCH (17:35)
[2017-08-03] MEDS: METOPROLOL TARTRATE 50 MG TAB PO SCH (20:15)
[2017-08-03] MEDS: HYDRALAZINE HCL 25 MG TABLET PO SCH (20:15)
[2017-08-03] MEDS: ENOXAPARIN SODIUM 80 MG/0.8 ML SQ SCH (20:16)
[2017-08-04] VITALS (7 sets, daily range): BP systolic 150–191; BP diastolic 76–94
[2017-08-04] MEDS: HYDRALAZINE HCL 20 MG/ML VIAL IV PRN (04:33)
[2017-08-04] MEDS: ACETAMINOPHEN 325 MG TAB PO PRN ×3 (04:34→22:08)
[2017-08-04 05:31] LABS: INR 1.77 (0.85-1.15); PROTHROMBIN TIME 18.4 SEC (9.6-11.6)
[2017-08-04 05:32] LABS: BASOPHILS % (AUTO) 1.3 % (0.0-5.0); EOSINOPHILS % (AUTO) 3.9 % (0.0-8.0); HEMATOCRIT 25.9 % (42-54); LYMPHOCYTES % (AUTO) 18.7 % (21.0-51.0); MEAN CORPUSCULAR HEMOGLOBIN 31.4 pg (27.0-33.0); MEAN CORPUSCULAR HGB CONC 34.1 g/dL (32.0-36.0); MEAN CORPUSCULAR VOLUME 92.1 fL (79-99); MONOCYTES % (AUTO) 11.6 % (3.0-13.0); NEUTROPHILS % (AUTO) 64.5 % (40.0-77.0); PLATELET COUNT (AUTO) 167 K/uL (130-400); RED BLOOD CELL COUNT(AUTO) 2.81 MIL/uL (4.50-6.20); RED CELL DISTRIBUTION WIDTH 17.6 % (11.0-15.5); WHITE BLOOD COUNT (AUTO) 3.3 K/uL (4.8-10.8)
[2017-08-04 05:35] LABS: POTASSIUM 4.6 mmol/L (3.5-5.1)
[2017-08-04] MEDS: HYDRALAZINE HCL 25 MG TABLET PO SCH ×2 (06:04→19:04)
[2017-08-04] MEDS: INSULIN HUMULIN R 100 UNIT/ML 3ML SQ SCH ×4 (07:30→21:00)
[2017-08-04] MEDS: AMLODIPINE BESYLATE 5 MG TAB PO SCH (09:05)
[2017-08-04] MEDS: METOPROLOL TARTRATE 50 MG TAB PO SCH ×2 (09:05→20:23)
[2017-08-04] MEDS: VITAMIN B COMPLEX 1 CAPSULE PO SCH (09:05)
[2017-08-04] MEDS: FAMOTIDINE 20MG TAB 20 MG TAB PO SCH ×2 (09:05→20:23)
[2017-08-04] MEDS: WARFARIN SODIUM 7.5 MG TAB PO SCH (16:03)
[2017-08-04] MEDS: DOXAZOSIN MESYLATE 2 MG TABLET PO SCH (16:03)
[2017-08-04] MEDS: ALPRAZOLAM 0.25 MG TABLET PO PRN (16:03)
[2017-08-04] MEDS: ATORVASTATIN CALCIUM 10 MG TABLET PO SCH (16:03)
[2017-08-04] MEDS: ENOXAPARIN SODIUM 80 MG/0.8 ML SQ SCH (20:25)
[2017-08-04] MEDS: ZOLPIDEM TARTRATE 5 MG TAB PO PRN (22:07)
[2017-08-05] VITALS (10 sets, daily range): BP systolic 149–182; BP diastolic 78–95
[2017-08-05] MEDS: HYDRALAZINE HCL 20 MG/ML VIAL IV PRN (04:55)
[2017-08-05 05:24] LABS: INR 2.95 (0.85-1.15); PROTHROMBIN TIME 30.3 SEC (9.6-11.6)
[2017-08-05] MEDS: INSULIN HUMULIN R 100 UNIT/ML 3ML SQ SCH ×2 (07:30→11:30)
[2017-08-05] MEDS: METOPROLOL TARTRATE 50 MG TAB PO SCH (09:37)
[2017-08-05] MEDS: FAMOTIDINE 20MG TAB 20 MG TAB PO SCH (09:37)
[2017-08-05] MEDS: HYDRALAZINE HCL 25 MG TABLET PO SCH (09:37)
[2017-08-05] MEDS: AMLODIPINE BESYLATE 5 MG TAB PO SCH (09:37)
[2017-08-05] MEDS: VITAMIN B COMPLEX 1 CAPSULE PO SCH (09:37)
[2017-08-05] MEDS ORDERED: WARF5TAB76 PO (10:54)
[2017-08-05] MEDS: ACETAMINOPHEN 325 MG TAB PO PRN (11:16)
[2017-08-05] MEDS ORDERED: SODIUM CHLORIDE 0.9% 1000ML 1,000 ML IV ONE (14:18)
[2017-08-05] MEDS: ALPRAZOLAM 0.25 MG TABLET PO PRN (14:18)
[2017-08-05] MEDS: ZOLPIDEM TARTRATE 5 MG TAB PO PRN (14:42)
[2017-08-05] MEDS ORDERED: 0.9% SODIUM CHLORIDE 250 ML IV BAG IV PRN (14:45)
[2017-08-05] MEDS ORDERED: SODIUM CHLORIDE 0.9% 1000ML 1,000 ML IV PRN (14:45)
== END 2017-08-05 18:25 | disposition home or self-care (01) | DRG 299 ==
LOC: EDH 18:25 → OBSVTOIN 23:35 → EDHIP 23:35 → 4BH 08-02 16:50
PROVIDERS: ADMIT Internal Medicine; ATTEND Internal Medicine
PROC: 5A1D70Z Performance of Urinary Filtration, Intermittent, Less than 6 Hours Per Day (ICD-10-PCS; principal; 2017-08-03)
PROC: 5A1D70Z Performance of Urinary Filtration, Intermittent, Less than 6 Hours Per Day (ICD-10-PCS; 2017-08-05)
DX: I82.412 Acute embolism and thrombosis of left femoral vein (principal); N18.6 End stage renal disease; D68.69 Other thrombophilia; I12.0 Hypertensive chronic kidney disease with stage 5 chronic kidney disease or end stage renal disease; E11.21 Type 2 diabetes mellitus with diabetic nephropathy; D70.9 Neutropenia, unspecified; E11.22 Type 2 diabetes mellitus with diabetic chronic kidney disease; D63.1 Anemia in chronic kidney disease; E78.5 Hyperlipidemia, unspecified; F41.9 Anxiety disorder, unspecified; Z79.01 Long term (current) use of anticoagulants; Z86.718 Personal history of other venous thrombosis and embolism; Z89.511 Acquired absence of right leg below knee; Z91.81 History of falling; Z99.2 Dependence on renal dialysis
CPT/HCPCS: 36415; 70450; 72070; 72100; 76870; 80048; 80053; 82948; 83880; 84132; 85025; 85610; 85730; 90935; 93971; J0360; J1650; J2060; J7030

== ENCOUNTER 2017-08-11 22:41 | Emergency (ER) | payer OTHER ==
[~2017-08-11 22:41] MED LIST changes: +WARF5TAB76 PO
[2017-08-11] MEDS ORDERED: ACETAMINOPHEN EXTRA STRENGTH 500 MG TABLET ONE (23:55)
[2017-08-12] MEDS ORDERED: HYDROCODONE/ACETAMINOPHEN 10/325 MG TAB ONE (02:25)
== END 2017-08-12 03:39 | disposition home or self-care (01) ==
LOC: EDH 22:41
DX: S80.02XA Contusion of left knee, initial encounter (principal); I12.0 Hypertensive chronic kidney disease with stage 5 chronic kidney disease or end stage renal disease; E11.22 Type 2 diabetes mellitus with diabetic chronic kidney disease; N18.6 End stage renal disease; Z88.8 Allergy status to other drugs, medicaments and biological substances; Z89.519 Acquired absence of unspecified leg below knee; Z99.2 Dependence on renal dialysis; W22.03XA Walked into furniture, initial encounter; Y93.89 Activity, other specified; Y92.098 Other place in other non-institutional residence as the place of occurrence of the external cause; Y99.8 Other external cause status
CPT/HCPCS: 73560

== ENCOUNTER 2017-08-13 21:38 | Inpatient (IN) | payer OTHER ==
[~2017-08-13] VITALS: Ht 180.3 cm; Wt 79.4 kg
[2017-08-13] MEDS ORDERED: HYDROCODONE/ACETAMINOPHEN 5/325 MG TAB ONE (22:41)
[2017-08-13 23:03] LABS: BASOPHILS % (AUTO) 0.5 % (0.0-5.0); EOSINOPHILS % (AUTO) 1.4 % (0.0-8.0); LYMPHOCYTES % (AUTO) 8.2 % (21.0-51.0); MEAN CORPUSCULAR HGB CONC 35.2 g/dL (32.0-36.0); MEAN CORPUSCULAR VOLUME 93.7 fL (79-99); MONOCYTES % (AUTO) 8.1 % (3.0-13.0); NEUTROPHILS % (AUTO) 81.8 % (40.0-77.0); PLATELET COUNT (AUTO) 221 K/uL (130-400); RED BLOOD CELL COUNT(AUTO) 2.06 MIL/uL (4.50-6.20); RED CELL DISTRIBUTION WIDTH 17.5 % (11.0-15.5); WHITE BLOOD COUNT (AUTO) 7.7 K/uL (4.8-10.8)
[2017-08-13 23:16] LABS: POTASSIUM 5.6 mmol/L (3.5-5.1)
[2017-08-13 23:19] LABS: ALBUMIN 3.3 g/dL (3.5-5.0); BILIRUBIN,TOTAL 0.6 mg/dL (0.2-1.0)
[2017-08-13 23:22] LABS: HEMATOCRIT 19.3 % (42-54)
[2017-08-13 23:52] LABS: PARTIAL THROMBOPLASTIN TIME 68.6 SEC (26.3-35.5)
[2017-08-13 23:55] LABS: INR > 7.00 (0.85-1.15); PROTHROMBIN TIME > 63.0 SEC (9.6-11.6)
[2017-08-14] MEDS ORDERED: ACETAMINOPHEN 325 MG TAB PO PRN ×2 (06:30)
[2017-08-14] MEDS ORDERED: ONDANSETRON HCL 4 MG/2 ML VIAL IV PRN (06:30)
[2017-08-14] MEDS ORDERED: MORPHINE SULFATE 2 MG/ML 1ML SYG IV PRN (06:30)
[2017-08-14 07:01] LABS: BASOPHILS % (AUTO) 0.5 % (0.0-5.0); EOSINOPHILS % (AUTO) 2.1 % (0.0-8.0); HEMATOCRIT 22.1 % (42-54); LYMPHOCYTES % (AUTO) 9.2 % (21.0-51.0); MEAN CORPUSCULAR HEMOGLOBIN 31.1 pg (27.0-33.0); MEAN CORPUSCULAR HGB CONC 34.1 g/dL (32.0-36.0); MEAN CORPUSCULAR VOLUME 91.3 fL (79-99); MONOCYTES % (AUTO) 9.6 % (3.0-13.0); NEUTROPHILS % (AUTO) 78.6 % (40.0-77.0); PLATELET COUNT (AUTO) 205 K/uL (130-400); RED BLOOD CELL COUNT(AUTO) 2.42 MIL/uL (4.50-6.20); RED CELL DISTRIBUTION WIDTH 17.7 % (11.0-15.5); WHITE BLOOD COUNT (AUTO) 6.8 K/uL (4.8-10.8)
[2017-08-14 07:12] LABS: CREATININE 6.2 mg/dL (0.5-1.5); POTASSIUM 5.8 mmol/L (3.5-5.1)
[2017-08-14 07:18] LABS: ALBUMIN 3.1 g/dL (3.5-5.0); BILIRUBIN,TOTAL 0.7 mg/dL (0.2-1.0); TOTAL PROTEIN, SERUM 6.5 g/dL (6.0-8.3)
[2017-08-14] MEDS ORDERED: SODIUM POLYSTYRENE SULFONATE 15 GM/60 ML ML PO SCH (07:30)
[2017-08-14] MEDS: INSULIN HUMULIN R 100 UNIT/ML 3ML SQ SCH ×4 (07:30→21:00)
[2017-08-14 07:33] LABS: INR > 7.00 (0.85-1.15); PROTHROMBIN TIME > 63.0 SEC (9.6-11.6)
[2017-08-14] MEDS ORDERED: MORPHINE SULFATE 4 MG/1ML SYG ONE ×2 (07:34→21:39)
[2017-08-14] MEDS ORDERED: FAMOTIDINE 20MG TAB 20 MG TAB PO SCH (09:00)
[2017-08-14] MEDS: FAMOTIDINE 20MG TAB 20 MG TAB PO SCH ×2 (09:22→20:43)
[2017-08-14 09:42] VITALS: BP 185/89
[2017-08-14] MEDS ORDERED: FOLI1CAP23 PO (09:46)
[2017-08-14] MEDS ORDERED: GABA-529 PO (09:46)
[2017-08-14] MEDS ORDERED: DOXA2TAB2 PO (09:46)
[2017-08-14] MEDS ORDERED: SIMV10TA6 PO (09:46)
[2017-08-14] MEDS ORDERED: WARF7.5T49 PO (09:46)
[2017-08-14] MEDS: ACETAMINOPHEN-CODEINE 300/30MG TAB PO PRN (09:56)
[2017-08-14 11:00] VITALS: BP 164/82
[2017-08-14 16:00] VITALS: BP 170/86
[2017-08-14] MEDS ORDERED: 0.9% SODIUM CHLORIDE 250 ML IV BAG IV PRN (19:45)
[2017-08-14] MEDS ORDERED: SODIUM CHLORIDE 0.9% 1000ML 1,000 ML IV PRN (19:45)
[2017-08-14 20:13] VITALS: BP 181/86
[2017-08-14] MEDS: DOXAZOSIN MESYLATE 2 MG TABLET PO SCH (20:42)
[2017-08-14] MEDS: HYDRALAZINE HCL 25 MG TABLET PO SCH (20:42)
[2017-08-14] MEDS: GABAPENTIN 100 MG CAPSULE PO SCH (20:42)
[2017-08-14] MEDS: ATORVASTATIN CALCIUM 10 MG TABLET PO SCH (20:43)
[2017-08-14] MEDS: METOPROLOL TARTRATE 50 MG TAB PO SCH (20:43)
[2017-08-14 23:50] VITALS: BP 157/75
[2017-08-15] MEDS: ACETAMINOPHEN-CODEINE 300/30MG TAB PO PRN ×2 (00:59→11:08)
[2017-08-15 03:55] VITALS: BP 164/82
[2017-08-15] MEDS: HYDRALAZINE HCL 20 MG/ML VIAL IV PRN ×2 (04:11→11:00)
[2017-08-15 05:42] LABS: MEAN CORPUSCULAR HEMOGLOBIN 32.9 pg (27.0-33.0); MEAN CORPUSCULAR HGB CONC 36.2 g/dL (32.0-36.0); NUCLEATED RED BLOOD CELLS 0.1 % (0.0-0.19); PLATELET COUNT (AUTO) 195 K/uL (130-400); RED BLOOD CELL COUNT(AUTO) 1.92 MIL/uL (4.50-6.20); RED CELL DISTRIBUTION WIDTH 18.2 % (11.0-15.5); WHITE BLOOD COUNT (AUTO) 6.4 K/uL (4.8-10.8)
[2017-08-15 05:54] LABS: CREATININE 5.3 mg/dL (0.5-1.5); POTASSIUM 4.8 mmol/L (3.5-5.1)
[2017-08-15 06:00] LABS: HEMATOCRIT 17.5 % (42-54)
[2017-08-15 06:09] LABS: INR 4.9 (0.85-1.15); PROTHROMBIN TIME 48.2 SEC (9.6-11.6)
[2017-08-15] MEDS: INSULIN HUMULIN R 100 UNIT/ML 3ML SQ SCH ×4 (06:14→21:00)
[2017-08-15] MEDS ORDERED: MORPHINE SULFATE 4 MG/1ML SYG ONE ×3 (08:52→20:14)
[2017-08-15] MEDS: FAMOTIDINE 20MG TAB 20 MG TAB PO SCH ×2 (08:59→22:21)
[2017-08-15] MEDS: HYDRALAZINE HCL 25 MG TABLET PO SCH ×2 (08:59→22:21)
[2017-08-15] MEDS: FOLIC ACID/VITAMIN B COMP W-C 1 MG CAPSULE PO SCH (08:59)
[2017-08-15] MEDS: METOPROLOL TARTRATE 50 MG TAB PO SCH ×2 (08:59→22:21)
[2017-08-15] MEDS: AMLODIPINE BESYLATE 5 MG TAB PO SCH (08:59)
[2017-08-15 09:05] VITALS: BP 153/73
[2017-08-15 15:30] VITALS: BP 157/76
[2017-08-15 19:30] VITALS: BP 144/72
[2017-08-15] MEDS: GABAPENTIN 100 MG CAPSULE PO SCH (22:21)
[2017-08-15] MEDS: ATORVASTATIN CALCIUM 10 MG TABLET PO SCH (22:21)
[2017-08-15] MEDS: DOXAZOSIN MESYLATE 2 MG TABLET PO SCH (22:21)
[2017-08-15 23:30] VITALS: BP 146/69
[2017-08-16 03:22] VITALS: BP 157/74
[2017-08-16 05:59] LABS: HEMATOCRIT 20.8 % (42-54)
[2017-08-16 06:13] LABS: INR 3.99 (0.85-1.15); PROTHROMBIN TIME 39.4 SEC (9.6-11.6)
[2017-08-16 06:16] LABS: CREATININE 6.9 mg/dL (0.5-1.5); POTASSIUM 5.6 mmol/L (3.5-5.1)
[2017-08-16 07:30] VITALS: BP 169/79
[2017-08-16] MEDS: INSULIN HUMULIN R 100 UNIT/ML 3ML SQ SCH ×4 (07:30→22:36)
[2017-08-16] MEDS ORDERED: MORPHINE SULFATE 4 MG/1ML SYG ONE ×3 (08:40→22:28)
[2017-08-16] MEDS: HYDRALAZINE HCL 25 MG TABLET PO SCH ×2 (09:00→22:22)
[2017-08-16] MEDS: METOPROLOL TARTRATE 50 MG TAB PO SCH ×2 (09:00→22:22)
[2017-08-16] MEDS: AMLODIPINE BESYLATE 5 MG TAB PO SCH (09:00)
[2017-08-16] MEDS: FOLIC ACID/VITAMIN B COMP W-C 1 MG CAPSULE PO SCH (09:43)
[2017-08-16] MEDS: FAMOTIDINE 20MG TAB 20 MG TAB PO SCH ×2 (09:43→22:22)
[2017-08-16 11:00] VITALS: BP 143/64
[2017-08-16 15:00] VITALS: BP 152/80
[2017-08-16] MEDS ORDERED: HEPARIN SODIUM 5000UNIT/ML 1ML VIAL IJ PRN (15:00)
[2017-08-16] MEDS ORDERED: 0.9% SODIUM CHLORIDE 250 ML IV BAG IV PRN (15:00)
[2017-08-16] MEDS ORDERED: ALBUMIN (HUMAN) 25% 100 ML IV PRN (15:00)
[2017-08-16] MEDS: PHARMACY COMMUNICATION MISC SCH (15:15)
[2017-08-16] MEDS: ACETAMINOPHEN-CODEINE 300/30MG TAB PO PRN (18:00)
[2017-08-16 20:00] VITALS: BP 154/75
[2017-08-16] MEDS: DOXAZOSIN MESYLATE 2 MG TABLET PO SCH (22:22)
[2017-08-16] MEDS: GABAPENTIN 100 MG CAPSULE PO SCH (22:22)
[2017-08-16] MEDS: ATORVASTATIN CALCIUM 10 MG TABLET PO SCH (22:22)
[2017-08-17] VITALS (7 sets, daily range): BP systolic 140–172; BP diastolic 62–80
[2017-08-17] MEDS: INSULIN HUMULIN R 100 UNIT/ML 3ML SQ SCH ×4 (05:24→21:00)
[2017-08-17 05:40] LABS: MEAN CORPUSCULAR HEMOGLOBIN 33.8 pg (27.0-33.0); MEAN CORPUSCULAR HGB CONC 36.8 g/dL (32.0-36.0); MEAN CORPUSCULAR VOLUME 91.8 fL (79-99); PLATELET COUNT (AUTO) 226 K/uL (130-400); RED BLOOD CELL COUNT(AUTO) 2.02 MIL/uL (4.50-6.20); RED CELL DISTRIBUTION WIDTH 17.7 % (11.0-15.5); WHITE BLOOD COUNT (AUTO) 8.1 K/uL (4.8-10.8)
[2017-08-17 05:47] LABS: HEMATOCRIT 18.5 % (42-54)
[2017-08-17 05:50] LABS: INR 2.66 (0.85-1.15); PROTHROMBIN TIME 27.4 SEC (9.6-11.6)
[2017-08-17 05:55] LABS: POTASSIUM 4.8 mmol/L (3.5-5.1)
[2017-08-17] MEDS: FAMOTIDINE 20MG TAB 20 MG TAB PO SCH ×2 (09:07→20:07)
[2017-08-17] MEDS: FOLIC ACID/VITAMIN B COMP W-C 1 MG CAPSULE PO SCH (09:07)
[2017-08-17] MEDS: HYDRALAZINE HCL 25 MG TABLET PO SCH ×2 (09:07→20:07)
[2017-08-17] MEDS: METOPROLOL TARTRATE 50 MG TAB PO SCH ×2 (09:07→20:06)
[2017-08-17] MEDS: AMLODIPINE BESYLATE 5 MG TAB PO SCH (09:07)
[2017-08-17] MEDS: ACETAMINOPHEN-CODEINE 300/30MG TAB PO PRN (09:08)
[2017-08-17] MEDS: PHARMACY COMMUNICATION MISC SCH (12:17)
[2017-08-17] MEDS: MORPHINE SULFATE 4 MG/1ML SYG IV PRN (20:06)
[2017-08-17] MEDS: ATORVASTATIN CALCIUM 10 MG TABLET PO SCH (20:06)
[2017-08-17] MEDS: DOXAZOSIN MESYLATE 2 MG TABLET PO SCH (20:07)
[2017-08-17] MEDS: GABAPENTIN 100 MG CAPSULE PO SCH (20:07)
[2017-08-18 04:00] VITALS: BP 147/74
[2017-08-18 05:49] LABS: INR 2.28 (0.85-1.15); PROTHROMBIN TIME 23.6 SEC (9.6-11.6)
[2017-08-18 05:56] LABS: MEAN CORPUSCULAR HGB CONC 33.6 g/dL (32.0-36.0); MEAN CORPUSCULAR VOLUME 92.2 fL (79-99); PLATELET COUNT (AUTO) 239 K/uL (130-400); RED BLOOD CELL COUNT(AUTO) 2.26 MIL/uL (4.50-6.20); RED CELL DISTRIBUTION WIDTH 17.4 % (11.0-15.5); WHITE BLOOD COUNT (AUTO) 8.2 K/uL (4.8-10.8)
[2017-08-18 06:01] LABS: HEMATOCRIT 20.8 % (42-54)
[2017-08-18] MEDS: INSULIN HUMULIN R 100 UNIT/ML 3ML SQ SCH ×4 (06:21→21:00)
[2017-08-18 08:12] VITALS: BP 160/84
[2017-08-18] MEDS: METOPROLOL TARTRATE 50 MG TAB PO SCH ×2 (09:00→21:42)
[2017-08-18] MEDS: FAMOTIDINE 20MG TAB 20 MG TAB PO SCH ×2 (09:00→21:42)
[2017-08-18] MEDS: AMLODIPINE BESYLATE 5 MG TAB PO SCH (09:00)
[2017-08-18] MEDS: HYDRALAZINE HCL 25 MG TABLET PO SCH ×2 (09:00→21:42)
[2017-08-18] MEDS: FOLIC ACID/VITAMIN B COMP W-C 1 MG CAPSULE PO SCH (09:00)
[2017-08-18] MEDS: MORPHINE SULFATE 4 MG/1ML SYG IV PRN (09:57)
[2017-08-18 11:54] VITALS: BP 153/78
[2017-08-18] MEDS: PHARMACY COMMUNICATION MISC SCH (15:15)
[2017-08-18 16:43] VITALS: BP 170/79
[2017-08-18] MEDS ORDERED: ENOXAPARIN SODIUM 80 MG/0.8 ML SQ SCH (16:53)
[2017-08-18 20:00] VITALS: BP 153/73
[2017-08-18] MEDS: DOXAZOSIN MESYLATE 2 MG TABLET PO SCH (21:42)
[2017-08-18] MEDS: GABAPENTIN 100 MG CAPSULE PO SCH (21:42)
[2017-08-18] MEDS: ATORVASTATIN CALCIUM 10 MG TABLET PO SCH (21:42)
[2017-08-19] VITALS: BP 145/73
[2017-08-19 04:00] VITALS: BP 154/75
[2017-08-19 05:46] LABS: HEMATOCRIT 23.2 % (42-54); MEAN CORPUSCULAR HEMOGLOBIN 31.4 pg (27.0-33.0); MEAN CORPUSCULAR HGB CONC 34.2 g/dL (32.0-36.0); PLATELET COUNT (AUTO) 249 K/uL (130-400); RED BLOOD CELL COUNT(AUTO) 2.52 MIL/uL (4.50-6.20); RED CELL DISTRIBUTION WIDTH 16.9 % (11.0-15.5); WHITE BLOOD COUNT (AUTO) 6.8 K/uL (4.8-10.8)
[2017-08-19 05:56] LABS: CREATININE 5.1 mg/dL (0.5-1.5); POTASSIUM 4.7 mmol/L (3.5-5.1)
[2017-08-19] MEDS: INSULIN HUMULIN R 100 UNIT/ML 3ML SQ SCH ×4 (07:30→21:00)
[2017-08-19 08:00] VITALS: BP 171/77
[2017-08-19] MEDS: HYDRALAZINE HCL 25 MG TABLET PO SCH ×2 (10:16→20:40)
[2017-08-19] MEDS: METOPROLOL TARTRATE 50 MG TAB PO SCH ×2 (10:16→20:39)
[2017-08-19] MEDS: FOLIC ACID/VITAMIN B COMP W-C 1 MG CAPSULE PO SCH (10:17)
[2017-08-19] MEDS: AMLODIPINE BESYLATE 5 MG TAB PO SCH (10:17)
[2017-08-19] MEDS: FAMOTIDINE 20MG TAB 20 MG TAB PO SCH ×2 (10:17→20:39)
[2017-08-19 11:28] VITALS: BP 148/76
[2017-08-19] MEDS: PHARMACY COMMUNICATION MISC SCH (15:15)
[2017-08-19] MEDS ORDERED: ENOXAPARIN SODIUM 1 MG/KG SQ SCH (17:00)
[2017-08-19 19:15] VITALS: BP 151/75
[2017-08-19] MEDS: DOXAZOSIN MESYLATE 2 MG TABLET PO SCH (20:39)
[2017-08-19] MEDS: GABAPENTIN 100 MG CAPSULE PO SCH (20:39)
[2017-08-19] MEDS: ATORVASTATIN CALCIUM 10 MG TABLET PO SCH (20:39)
[2017-08-19 23:10] VITALS: BP 153/75
[2017-08-20 03:30] VITALS: BP 155/75
[2017-08-20 06:10] LABS: HEMATOCRIT 22.3 % (42-54); MEAN CORPUSCULAR HEMOGLOBIN 32.6 pg (27.0-33.0); MEAN CORPUSCULAR HGB CONC 35.4 g/dL (32.0-36.0); MEAN CORPUSCULAR VOLUME 92.2 fL (79-99); PLATELET COUNT (AUTO) 248 K/uL (130-400); RED BLOOD CELL COUNT(AUTO) 2.42 MIL/uL (4.50-6.20); RED CELL DISTRIBUTION WIDTH 16.3 % (11.0-15.5); WHITE BLOOD COUNT (AUTO) 6.1 K/uL (4.8-10.8)
[2017-08-20 06:22] LABS: CREATININE 6.8 mg/dL (0.5-1.5); POTASSIUM 4.7 mmol/L (3.5-5.1)
[2017-08-20] MEDS: INSULIN HUMULIN R 100 UNIT/ML 3ML SQ SCH ×4 (06:42→21:00)
[2017-08-20 08:12] VITALS: BP 157/81
[2017-08-20] MEDS: HYDRALAZINE HCL 25 MG TABLET PO SCH ×2 (09:38→21:02)
[2017-08-20] MEDS: AMLODIPINE BESYLATE 5 MG TAB PO SCH (09:38)
[2017-08-20] MEDS: METOPROLOL TARTRATE 50 MG TAB PO SCH ×2 (09:38→21:02)
[2017-08-20] MEDS: FAMOTIDINE 20MG TAB 20 MG TAB PO SCH ×2 (09:38→21:02)
[2017-08-20] MEDS: FOLIC ACID/VITAMIN B COMP W-C 1 MG CAPSULE PO SCH (09:38)
[2017-08-20] MEDS: MORPHINE SULFATE 4 MG/1ML SYG IV PRN (10:28)
[2017-08-20 12:03] VITALS: BP 151/79
[2017-08-20 12:49] LABS: INR 1.74 (0.85-1.15); PROTHROMBIN TIME 18.1 SEC (9.6-11.6)
[2017-08-20] MEDS: PHARMACY COMMUNICATION MISC SCH (13:17)
[2017-08-20 16:58] VITALS: BP 154/75
[2017-08-20 19:20] VITALS: BP 164/79
[2017-08-20] MEDS ORDERED: EPOETIN ALFA 2,000 UNIT/ML VIAL SQ ONE (21:00)
[2017-08-20] MEDS ORDERED: EPOETIN ALFA 3,000 UNIT/ML ML SQ ONE (21:00)
[2017-08-20] MEDS: GABAPENTIN 100 MG CAPSULE PO SCH (21:02)
[2017-08-20] MEDS: DOXAZOSIN MESYLATE 2 MG TABLET PO SCH (21:02)
[2017-08-20] MEDS: ATORVASTATIN CALCIUM 10 MG TABLET PO SCH (21:02)
[2017-08-20 23:30] VITALS: BP 149/76
[2017-08-21 03:15] VITALS: BP 156/85
[2017-08-21 05:25] LABS: POTASSIUM 4.1 mmol/L (3.5-5.1)
[2017-08-21 05:28] LABS: HEMATOCRIT 23.7 % (42-54); MEAN CORPUSCULAR HEMOGLOBIN 31.4 pg (27.0-33.0); MEAN CORPUSCULAR HGB CONC 34.1 g/dL (32.0-36.0); MEAN CORPUSCULAR VOLUME 92.1 fL (79-99); PLATELET COUNT (AUTO) 284 K/uL (130-400); RED BLOOD CELL COUNT(AUTO) 2.58 MIL/uL (4.50-6.20); RED CELL DISTRIBUTION WIDTH 16.3 % (11.0-15.5); WHITE BLOOD COUNT (AUTO) 6.4 K/uL (4.8-10.8)
[2017-08-21] MEDS: INSULIN HUMULIN R 100 UNIT/ML 3ML SQ SCH ×4 (06:56→21:00)
[2017-08-21 08:00] VITALS: BP 151/68
[2017-08-21] MEDS: AMLODIPINE BESYLATE 5 MG TAB PO SCH (08:27)
[2017-08-21] MEDS: HYDRALAZINE HCL 25 MG TABLET PO SCH ×2 (08:27→20:10)
[2017-08-21] MEDS: FOLIC ACID/VITAMIN B COMP W-C 1 MG CAPSULE PO SCH (08:28)
[2017-08-21] MEDS: METOPROLOL TARTRATE 50 MG TAB PO SCH ×2 (08:28→20:09)
[2017-08-21] MEDS: FAMOTIDINE 20MG TAB 20 MG TAB PO SCH ×2 (08:28→20:09)
[2017-08-21 11:30] VITALS: BP 149/70
[2017-08-21] MEDS: PHARMACY COMMUNICATION MISC SCH (14:32)
[2017-08-21 15:55] VITALS: BP 157/80
[2017-08-21 19:15] VITALS: BP 167/70
[2017-08-21] MEDS: GABAPENTIN 100 MG CAPSULE PO SCH (20:09)
[2017-08-21] MEDS: ATORVASTATIN CALCIUM 10 MG TABLET PO SCH (20:09)
[2017-08-21] MEDS: DOXAZOSIN MESYLATE 2 MG TABLET PO SCH (20:09)
[2017-08-21] MEDS: ACETAMINOPHEN-CODEINE 300/30MG TAB PO PRN (21:34)
[2017-08-21 23:10] VITALS: BP 171/80
[2017-08-22 03:20] VITALS: BP 158/82
[2017-08-22 05:30] LABS: HEMATOCRIT 24.1 % (42-54); MEAN CORPUSCULAR HEMOGLOBIN 31.6 pg (27.0-33.0); MEAN CORPUSCULAR HGB CONC 34.6 g/dL (32.0-36.0); MEAN CORPUSCULAR VOLUME 91.4 fL (79-99); PLATELET COUNT (AUTO) 304 K/uL (130-400); RED BLOOD CELL COUNT(AUTO) 2.63 MIL/uL (4.50-6.20); RED CELL DISTRIBUTION WIDTH 15.8 % (11.0-15.5); WHITE BLOOD COUNT (AUTO) 6.3 K/uL (4.8-10.8)
[2017-08-22 05:40] LABS: CREATININE 6.5 mg/dL (0.5-1.5); POTASSIUM 4.4 mmol/L (3.5-5.1)
[2017-08-22] MEDS ORDERED: SODIUM CHLORIDE 0.9% 1000ML 1,000 ML IV PRN (06:00)
[2017-08-22] MEDS ORDERED: 0.9% SODIUM CHLORIDE 250 ML IV BAG IV PRN (06:00)
[2017-08-22] MEDS: INSULIN HUMULIN R 100 UNIT/ML 3ML SQ SCH ×4 (06:53→21:00)
[2017-08-22 07:30] VITALS: BP 177/84
[2017-08-22 11:01] VITALS: BP 159/78
[2017-08-22] MEDS: FAMOTIDINE 20MG TAB 20 MG TAB PO SCH ×2 (11:09→21:08)
[2017-08-22] MEDS: METOPROLOL TARTRATE 50 MG TAB PO SCH ×2 (11:09→21:07)
[2017-08-22] MEDS: AMLODIPINE BESYLATE 5 MG TAB PO SCH (11:09)
[2017-08-22] MEDS: FOLIC ACID/VITAMIN B COMP W-C 1 MG CAPSULE PO SCH (11:09)
[2017-08-22] MEDS: HYDRALAZINE HCL 25 MG TABLET PO SCH ×2 (11:09→21:08)
[2017-08-22] MEDS: PHARMACY COMMUNICATION MISC SCH (15:15)
[2017-08-22 17:06] VITALS: BP 169/80
[2017-08-22] MEDS: WARFARIN SODIUM 5 MG TAB PO SCH (18:10)
[2017-08-22 20:00] VITALS: BP 176/95
[2017-08-22] MEDS: GABAPENTIN 100 MG CAPSULE PO SCH (21:07)
[2017-08-22] MEDS: ATORVASTATIN CALCIUM 10 MG TABLET PO SCH (21:07)
[2017-08-22] MEDS: DOXAZOSIN MESYLATE 2 MG TABLET PO SCH (21:07)
[2017-08-22 23:57] VITALS: BP 173/85
[2017-08-23 04:00] VITALS: BP 165/80
[2017-08-23 05:43] LABS: BASOPHILS % (AUTO) 0.5 % (0.0-5.0); EOSINOPHILS % (AUTO) 2.9 % (0.0-8.0); HEMATOCRIT 23.8 % (42-54); LYMPHOCYTES % (AUTO) 13.1 % (21.0-51.0); MEAN CORPUSCULAR HEMOGLOBIN 31.4 pg (27.0-33.0); MEAN CORPUSCULAR HGB CONC 34.3 g/dL (32.0-36.0); MEAN CORPUSCULAR VOLUME 91.4 fL (79-99); MONOCYTES % (AUTO) 9.8 % (3.0-13.0); NEUTROPHILS % (AUTO) 73.7 % (40.0-77.0); PLATELET COUNT (AUTO) 313 K/uL (130-400); RED CELL DISTRIBUTION WIDTH 15.8 % (11.0-15.5); WHITE BLOOD COUNT (AUTO) 6.8 K/uL (4.8-10.8)
[2017-08-23 05:45] LABS: INR 1.43 (0.85-1.15); PROTHROMBIN TIME 14.9 SEC (9.6-11.6)
[2017-08-23 05:52] LABS: POTASSIUM 4.6 mmol/L (3.5-5.1)
[2017-08-23 05:56] LABS: CREATININE 7.9 mg/dL (0.5-1.5)
[2017-08-23] MEDS: INSULIN HUMULIN R 100 UNIT/ML 3ML SQ SCH ×4 (06:46→21:00)
[2017-08-23 07:48] VITALS: BP 156/78
[2017-08-23] MEDS: HYDRALAZINE HCL 25 MG TABLET PO SCH ×2 (08:19→22:15)
[2017-08-23] MEDS: FAMOTIDINE 20MG TAB 20 MG TAB PO SCH ×2 (08:19→22:14)
[2017-08-23] MEDS: FOLIC ACID/VITAMIN B COMP W-C 1 MG CAPSULE PO SCH (08:19)
[2017-08-23] MEDS: METOPROLOL TARTRATE 50 MG TAB PO SCH ×2 (08:20→22:15)
[2017-08-23] MEDS: AMLODIPINE BESYLATE 5 MG TAB PO SCH (08:20)
[2017-08-23] MEDS: ACETAMINOPHEN-CODEINE 300/30MG TAB PO PRN ×2 (10:08→21:58)
[2017-08-23 11:22] VITALS: BP 168/85
[2017-08-23 15:30] VITALS: BP 151/74
[2017-08-23] MEDS ORDERED: ALPRAZOLAM 0.25 MG TABLET PO SCH (17:00)
[2017-08-23] MEDS: ENOXAPARIN SODIUM 80 MG/0.8 ML SQ SCH (17:46)
[2017-08-23] MEDS: WARFARIN SODIUM 5 MG TAB PO SCH (17:46)
[2017-08-23 20:00] VITALS: BP 171/83
[2017-08-23] MEDS: GABAPENTIN 100 MG CAPSULE PO SCH (22:14)
[2017-08-23] MEDS: DOXAZOSIN MESYLATE 2 MG TABLET PO SCH (22:15)
[2017-08-23] MEDS: ATORVASTATIN CALCIUM 10 MG TABLET PO SCH (22:15)
[2017-08-24] VITALS: BP 153/83
[2017-08-24 04:00] VITALS: BP 164/82
[2017-08-24 05:37] LABS: CREATININE 6.2 mg/dL (0.5-1.5); POTASSIUM 4.6 mmol/L (3.5-5.1)
[2017-08-24 05:39] LABS: INR 1.77 (0.85-1.15); PROTHROMBIN TIME 18.4 SEC (9.6-11.6)
[2017-08-24 05:55] LABS: BAND NEUTROPHILS % (MANUAL) 1 % (0-2); BASOPHILS % (MANUAL) 1 % (0-2); EOSINOPHILS % (MANUAL) 5 % (1-6); LYMPHOCYTES % (MANUAL) 8 % (22-44); MAN.DIFF COMMENT-IMPRESSION MANUAL DIFFERENTIAL; MONOCYTES % (MANUAL) 6 % (2-9); SEGMENTED NEUTROPHILS % 79 % (40-70)
[2017-08-24 05:56] LABS: PLATELET MORPHOLOGY COMMENT ADEQUATE
[2017-08-24 05:57] LABS: HEMATOCRIT 24.2 % (42-54); MEAN CORPUSCULAR HEMOGLOBIN 32.1 pg (27.0-33.0); MEAN CORPUSCULAR HGB CONC 35.1 g/dL (32.0-36.0); MEAN CORPUSCULAR VOLUME 91.5 fL (79-99); PLATELET COUNT (AUTO) 331 K/uL (130-400); RED BLOOD CELL COUNT(AUTO) 2.64 MIL/uL (4.50-6.20); RED CELL DISTRIBUTION WIDTH 15.8 % (11.0-15.5); WHITE BLOOD COUNT (AUTO) 6.6 K/uL (4.8-10.8)
[2017-08-24 07:00] VITALS: BP 173/86
[2017-08-24] MEDS: INSULIN HUMULIN R 100 UNIT/ML 3ML SQ SCH ×3 (07:30→16:16)
[2017-08-24] MEDS: FOLIC ACID/VITAMIN B COMP W-C 1 MG CAPSULE PO SCH (10:10)
[2017-08-24] MEDS: FAMOTIDINE 20MG TAB 20 MG TAB PO SCH (10:10)
[2017-08-24] MEDS: METOPROLOL TARTRATE 50 MG TAB PO SCH (10:10)
[2017-08-24] MEDS: HYDRALAZINE HCL 25 MG TABLET PO SCH (10:11)
[2017-08-24] MEDS: AMLODIPINE BESYLATE 5 MG TAB PO SCH (10:11)
[2017-08-24 11:00] VITALS: BP 175/95
[2017-08-24] MEDS ORDERED: WARF-57 PO (13:41)
[2017-08-24 15:00] VITALS: BP 152/85
[2017-08-24] MEDS: WARFARIN SODIUM 5 MG TAB PO SCH (17:01)
[2017-08-24] MEDS: ENOXAPARIN SODIUM 80 MG/0.8 ML SQ SCH (17:01)
== END 2017-08-24 17:55 | disposition home or self-care (01) | DRG 299 ==
LOC: EDH 21:38 → OBSVTOIN 08-14 00:43 → EDHIP 08-14 00:43 → 4BH 08-14 08:50
PROVIDERS: ADMIT Internal Medicine; ATTEND Internal Medicine
PROC: 30233L1 Transfusion of Nonautologous Fresh Plasma into Peripheral Vein, Percutaneous Approach (ICD-10-PCS; principal; 2017-08-14)
PROC: 30233N1 Transfusion of Nonautologous Red Blood Cells into Peripheral Vein, Percutaneous Approach (ICD-10-PCS; 2017-08-14)
PROC: 30233K1 Transfusion of Nonautologous Frozen Plasma into Peripheral Vein, Percutaneous Approach (ICD-10-PCS; 2017-08-14)
PROC: 5A1D70Z Performance of Urinary Filtration, Intermittent, Less than 6 Hours Per Day (ICD-10-PCS; 2017-08-14)
PROC: 5A1D70Z Performance of Urinary Filtration, Intermittent, Less than 6 Hours Per Day (ICD-10-PCS; 2017-08-16)
PROC: 5A1D70Z Performance of Urinary Filtration, Intermittent, Less than 6 Hours Per Day (ICD-10-PCS; 2017-08-18)
PROC: 5A1D70Z Performance of Urinary Filtration, Intermittent, Less than 6 Hours Per Day (ICD-10-PCS; 2017-08-20)
PROC: 5A1D70Z Performance of Urinary Filtration, Intermittent, Less than 6 Hours Per Day (ICD-10-PCS; 2017-08-23)
DX: I82.412 Acute embolism and thrombosis of left femoral vein (principal); N18.6 End stage renal disease; D68.69 Other thrombophilia; E11.21 Type 2 diabetes mellitus with diabetic nephropathy; I12.0 Hypertensive chronic kidney disease with stage 5 chronic kidney disease or end stage renal disease; D62 Acute posthemorrhagic anemia; E11.22 Type 2 diabetes mellitus with diabetic chronic kidney disease; E11.42 Type 2 diabetes mellitus with diabetic polyneuropathy; E44.1 Mild protein-calorie malnutrition; W19.XXXA Unspecified fall, initial encounter; D63.1 Anemia in chronic kidney disease; E11.51 Type 2 diabetes mellitus with diabetic peripheral angiopathy without gangrene; E78.5 Hyperlipidemia, unspecified; S80.12XA Contusion of left lower leg, initial encounter; Z74.01 Bed confinement status; Z79.01 Long term (current) use of anticoagulants; Z86.718 Personal history of other venous thrombosis and embolism; Z89.511 Acquired absence of right leg below knee; Z99.2 Dependence on renal dialysis; Y93.89 Activity, other specified; Y92.89 Other specified places as the place of occurrence of the external cause; Y99.8 Other external cause status; Z68.24 Body mass index [BMI] 24.0-24.9, adult; Z88.8 Allergy status to other drugs, medicaments and biological substances
CPT/HCPCS: 36415; 36430; 71045; 73560; 73700; 80048; 80053; 82270; 82948; 83883; 85014; 85018; 85025; 85027; 85610; 85730; 86334; 86850; 86900; 86901; 86922; 86927; 90935; 93971; 97039; J0360; J0885; J1650; J1815; J2270; J7030; P9016; P9017

== ENCOUNTER 2018-04-26 19:59 | Emergency (ER) | payer OTHER ==
[~2018-04-26 19:59] MED LIST changes: -AMLO10TA2 PO; +AMLO10TA6 PO; +FOLI1CAP23 PO; +GABA-529 PO; +WARF-57 PO; -WARF5TAB76 PO
[2018-04-26] MEDS ORDERED: MORPHINE SULFATE 4 MG/1ML SYG ONE (20:23)
== END 2018-04-26 22:40 | disposition home or self-care (01) ==
LOC: EDH 19:59
DX: S16.1XXA Strain of muscle, fascia and tendon at neck level, initial encounter (principal); S20.212A Contusion of left front wall of thorax, initial encounter; S09.90XA Unspecified injury of head, initial encounter; I12.0 Hypertensive chronic kidney disease with stage 5 chronic kidney disease or end stage renal disease; E11.22 Type 2 diabetes mellitus with diabetic chronic kidney disease; N18.6 End stage renal disease; Z99.2 Dependence on renal dialysis; Z87.891 Personal history of nicotine dependence; Z98.890 Other specified postprocedural states; W01.0XXA Fall on same level from slipping, tripping and stumbling without subsequent striking against object, initial encounter; Y93.89 Activity, other specified; Y92.481 Parking lot as the place of occurrence of the external cause; Y99.8 Other external cause status
CPT/HCPCS: 70450; 71101; 72125; 96372; 99284; J2270

== ENCOUNTER → 2018-06-19 | Outpatient (CLI) | payer OTHER ==
[~2018-06-19] MED LIST changes: -AMLO10TA6 PO; +AMLO10TA7 PO
== END | disposition home or self-care (01) ==
LOC: RAH 12:50
PROVIDERS: ATTEND Internal Medicine
DX: S22.42XA Multiple fractures of ribs, left side, initial encounter for closed fracture (principal); J90 Pleural effusion, not elsewhere classified; I51.7 Cardiomegaly; X58.XXXA Exposure to other specified factors, initial encounter; Y93.89 Activity, other specified; Y92.89 Other specified places as the place of occurrence of the external cause; Y99.8 Other external cause status
CPT/HCPCS: 71046; 71100

== ENCOUNTER 2019-02-10 09:36 | Inpatient (IN) | payer OTHER ==
[~2019-02-10] VITALS: Ht 180.3 cm; Wt 69.9 kg
[2019-02-10] VITALS (24 sets, daily range): BP systolic 129–173; BP diastolic 60–85
[~2019-02-10 09:36] MED LIST changes: -AMLO10TA7 PO; +AMLO5TAB9 PO; +CALC-190 PO; +CITA10TA13 PO; -FOLI1TAB61 PO; -GABA-529 PO; +LEVO25TA54 PO; -WARF-57 PO
[2019-02-10 10:12] LABS: EOSINOPHILS % (AUTO) 4.2 % (0.0-8.0); HEMATOCRIT 27.5 % (42-54); LYMPHOCYTES % (AUTO) 11.8 % (21.0-51.0); MEAN CORPUSCULAR HEMOGLOBIN 32.6 pg (27.0-33.0); MEAN CORPUSCULAR HGB CONC 34.1 g/dL (32.0-36.0); MEAN CORPUSCULAR VOLUME 95.5 fL (79-99); PLATELET COUNT (AUTO) 162 K/uL (130-400); RED BLOOD CELL COUNT(AUTO) 2.87 MIL/uL (4.50-6.20); RED CELL DISTRIBUTION WIDTH 15.8 % (11.0-15.5); WHITE BLOOD COUNT (AUTO) 5.4 K/uL (4.8-10.8)
[2019-02-10 10:18] LABS: CREATININE 5.2 mg/dL (0.5-1.5); POTASSIUM 4.8 mmol/L (3.5-5.1)
[2019-02-10 10:21] LABS: INR 1.12 (0.85-1.15); PARTIAL THROMBOPLASTIN TIME 30.3 SEC (26.3-35.5); PROTHROMBIN TIME 11.7 SEC (9.6-11.6)
[2019-02-10 10:22] LABS: ALBUMIN 3.6 g/dL (3.5-5.0); BILIRUBIN,TOTAL 0.6 mg/dL (0.2-1.0); TOTAL PROTEIN, SERUM 6.9 g/dL (6.0-8.3)
[2019-02-10] MEDS ORDERED: SODIUM CHLORIDE 0.9% 1000ML 1,000 ML IV ONE (11:14)
[2019-02-10] MEDS ORDERED: MAG HYDROX/AL HYDROX/SIMETH ES 30 ML SUSP UDCUP PO PRN (11:45)
[2019-02-10] MEDS ORDERED: ONDANSETRON HCL 4 MG/2 ML VIAL IV PRN (11:45)
[2019-02-10] MEDS ORDERED: DiphenhydrAMINE HCL 50 MG/ML VIAL IV PRN (11:45)
[2019-02-10] MEDS ORDERED: DIPHENHYDRAMINE HCL 25 MG CAPSULE PO PRN (11:45)
[2019-02-10] MEDS ORDERED: NITROGLYCERIN 0.4 MG SL TAB SL PRN (11:45)
[2019-02-10] MEDS ORDERED: LACTULOSE 20 GM/30 ML UDCUP PO PRN (11:45)
[2019-02-10] MEDS ORDERED: ACETAMINOPHEN 325 MG TAB PO PRN ×2 (11:45)
[2019-02-10] MEDS ORDERED: SODIUM CHLORIDE 0.9% 500ML 500 ML IV ONE (11:53)
[2019-02-10] MEDS ORDERED: SODIUM CHLORIDE 0.9% 1000ML 500 ML IV ONE (12:00)
[2019-02-10 12:27] LABS: HEMATOCRIT 24.4 % (42-54)
[2019-02-10] MEDS ORDERED: HYDR-4154 PO (13:04)
[2019-02-10] MEDS ORDERED: GABA-529 PO (13:04)
[2019-02-10] MEDS ORDERED: LEVOFLOXACIN 500 MG/D5W 100 ML 100 ML IV SCH (13:15)
[2019-02-10] MEDS: METRONIDAZOLE 500MG/100ML BAG 100 ML IVPB SCH ×2 (15:19→21:57)
[2019-02-10] MEDS ORDERED: DESMOPRESSIN ACETATE 4 MCG/ML 20 MCG in SODIUM CHLORIDE 0.9% 50 ML IJ SCH (15:44)
[2019-02-10] MEDS: OCTREOTIDE ACETATE 500 MCG in SODIUM CHLORIDE 0.9% 97.5 ML IV SCH (15:57)
--- NOTE | 2019-02-10 19:00 | NUR ---
NUCLEAR MED NUTRITION ASSOCIATE HERE STATED THAT DR AMARAL HAS REQUESTED TO REPEAT THE BLEEDING SCAN. DR BURGOS PRESENT, HE VIEWED IMAGES. PATIENT TAKEN BACK TO NUCLEAR SCAN BY NUTRITION ASSOCIATE AND FELICITY TOURE- PORTABLE MONITORING EN ROUTE. PATIENT AA&ox3. NO DISTRESS NOTED. PRIOR TO TRANSFER PATIENT WAS VENIPUNCTURED BY DEPARTURE CLERK FOR SCHEDULED H&H. PENDING RESULTS.
[2019-02-10 19:18] LABS: HEMATOCRIT 22.5 % (42-54)
--- NOTE | 2019-02-10 19:40 | NUR ---
RECEIVED CALL FROM DR Joel PHAN. ASKING IF PATIENT IS BEING CURRENTLY PREPPED FOR COLONOSCOPY FOR TOMORROW. INFORMED HIM THAT COLONOSCOPY HAD BEEN CANCELLED BY HIM EARLIER TODAY. HE STATED TO GO AHEAD AND SCHEDULED FOR COLONOSCOPY FOR TOMORROW WITH MAC AT 7AM. NOTIFIED HIM OF CURRENT H&h RESULTS 7.6.5
[2019-02-10] MEDS ORDERED: PEG 3350/NA SULF,BICARB,CL/KCL 4000 ML SOLN PO SCH (20:15)
--- NOTE | 2019-02-10 20:29 | NUR ---
RECEIVED CALL FROM DR NICOLE STATED THAT BLEEDING SCAN SHOWS PATIENT IS ACTIVELY BLEEDING FROM RECT[place] & TO LET GI MD KNOW THAT PATIENT NEEDS BE SCOPED & I.R. WILL NOT INTERVENE. I CALLED DR Joel PHAN AND NOTIFIED HIM. HE STATED TO HAVE I.R. CAUTERIZE THE BLEED. I NOTIFIED HIM THAT DR NICOLE STATED "I.R. WILL NOT INTERVENE & PT NEEDS TO BE SCOPED". DR PHAN, STATED "OK, CONTINUE PLANNED. PREP PATIENT FOR COLONOSCOPY IN AM.
[2019-02-10] MEDS ORDERED: PHARMACY COMMUNICATION MISC SCH (21:00)
[2019-02-10] MEDS ORDERED: PANTOPRAZOLE SODIUM 80 MG in SODIUM CHLORIDE 0.9% 100 ML IV SCH (21:00)
[2019-02-10] MEDS: METOPROLOL TARTRATE 50 MG TAB PO SCH (21:58)
[2019-02-10] MEDS: GABAPENTIN 100 MG CAPSULE PO SCH (21:58)
[2019-02-10] MEDS: SIMVASTATIN 10 MG TABLET PO SCH (21:58)
[2019-02-10] MEDS: DOXAZOSIN MESYLATE 2 MG TABLET PO SCH (21:59)
[2019-02-10 23:48] LABS: HEMATOCRIT 19.5 % (42-54)
[2019-02-11] VITALS (29 sets, daily range): BP systolic 123–178; BP diastolic 49–98
--- NOTE | 2019-02-11 00:15 | NUR ---
H&H 6.6/.5 REPORTED TO LORI HALE. ORDER RECEIVED TO TRANSFUSE 2 UNITS PRBC'S.
[2019-02-11] MEDS ORDERED: SODIUM CHLORIDE 0.9% 250 ML IV ONE ×2 (00:22→04:17)
--- NOTE | 2019-02-11 00:49 | NUR ---
RECEIVED CALL FROM DR Joel PHAN ASKING FOR UPDATE. REPORTED V/S, H&H 6.6/19.5, BRIGHT RED BLOODY BM'S. HE INSTRUCTED FOR PATIENT TO FINISH GOLYTELY AND ORDERED FLEETS ENEMA X2 AT 0600. UPDATED PATIENT.
--- NOTE | 2019-02-11 02:24 | NUR ---
CONTINUES WITH BRIGHT RED BLOOD BM'S. BLOOD TRANSFUSION INFUSING. CONTINUES DRINKING GOLYTELY.
[2019-02-11] MEDS: HYDRALAZINE HCL 25 MG TABLET PO SCH ×4 (02:42→20:09)
[2019-02-11 04:03] LABS: BASOPHILS % (AUTO) 1.2 % (0.0-5.0); EOSINOPHILS % (AUTO) 3.2 % (0.0-8.0); MEAN CORPUSCULAR HEMOGLOBIN 31.7 pg (27.0-33.0); MEAN CORPUSCULAR HGB CONC 34.7 g/dL (32.0-36.0); MEAN CORPUSCULAR VOLUME 91.4 fL (79-99); NEUTROPHILS % (AUTO) 76.6 % (40.0-77.0); PLATELET COUNT (AUTO) 128 K/uL (130-400); RED BLOOD CELL COUNT(AUTO) 2.23 MIL/uL (4.50-6.20); RED CELL DISTRIBUTION WIDTH 16.8 % (11.0-15.5)
[2019-02-11 04:08] LABS: HEMATOCRIT 20.3 % (42-54)
[2019-02-11 04:17] LABS: ALBUMIN 2.7 g/dL (3.5-5.0); CREATININE 5.9 mg/dL (0.5-1.5); TOTAL PROTEIN, SERUM 5.3 g/dL (6.0-8.3)
[2019-02-11] MEDS ORDERED: CALCIUM GLUCONATE 1 GM/10 ML VIAL IV SCH (04:45)
[2019-02-11] MEDS ORDERED: SODIUM BICARB 50MEQ 50ML VIAL IV ONE (04:45)
[2019-02-11] MEDS ORDERED: DEXTROSE 50%-WATER 25 GM/50 ML VIAL IV SCH (04:45)
[2019-02-11] MEDS ORDERED: INSULIN HUMULIN R 100 UNIT/ML 3ML SQ SCH (04:45)
[2019-02-11] MEDS ORDERED: SODIUM BICARB 50MEQ 50ML VIAL ONE (05:03)
[2019-02-11] MEDS ORDERED: DEXTROSE 50%-WATER 50 ML DISP.SYRIN IV ONE (05:04)
[2019-02-11] MEDS ORDERED: CALCIUM GLUCONATE 1 GM/10 ML VIAL IV ONE (05:04)
[2019-02-11] MEDS ORDERED: INSULIN HUMULIN R 100 UNIT/ML 3ML ONE (05:05)
[2019-02-11] MEDS ORDERED: PHARMACY COMMUNICATION MISC SCH (06:00)
[2019-02-11] MEDS: OCTREOTIDE ACETATE 500 MCG in SODIUM CHLORIDE 0.9% 97.5 ML IV SCH (06:26)
[2019-02-11] MEDS ORDERED: LIDOCAINE HCL-MPF 2% 5ML VIAL ONE (06:44)
[2019-02-11] MEDS ORDERED: PROPOFOL 10 MG/ML 20ML VIAL IV ONE (06:44)
[2019-02-11] MEDS: CITALOPRAM 20 MG TABLET PO SCH (08:18)
[2019-02-11] MEDS: PANTOPRAZOLE SODIUM 40 MG TABLET.DR PO SCH (08:18)
[2019-02-11] MEDS: LEVOTHYROXINE 25 MCG TABLET PO SCH (08:18)
[2019-02-11] MEDS: AMLODIPINE BESYLATE 5 MG TAB PO SCH (08:18)
[2019-02-11] MEDS: METOPROLOL TARTRATE 50 MG TAB PO SCH ×2 (08:18→20:09)
[2019-02-11] MEDS: METRONIDAZOLE 500MG/100ML BAG 100 ML IVPB SCH ×2 (08:19→14:50)
[2019-02-11] MEDS ORDERED: PANTOPRAZOLE SODIUM 80 MG in SODIUM CHLORIDE 0.9% 100 ML IV SCH (09:00)
[2019-02-11 09:35] LABS: HEMATOCRIT 23.3 % (42-54)
--- NOTE | 2019-02-11 10:04 | NUR ---
TRANSFUSING 1 UNIT FFP ORDERED. TOLERATING WELL.
--- NOTE | 2019-02-11 12:30 | NUR ---
DR. BAIRES IN TO SEE PT. PLAN OF CARE DISCUSSED. NOTIFIED OF COLONOSCOPY RESULTS. NO PLANS FOR SURGERY AT THIS TIME.
--- NOTE | 2019-02-11 18:31 | NUR ---
cm note met with patient and states resides at home with spouse,uses walker rollator, and cane at times. has provider 3hrs daily. no dc needs. Addendum: 02/11/19 at 1834 by REJI HOFFMAN CM Amended: Links added.
--- NOTE | 2019-02-11 19:00 | NUR ---
ASSESSMENT RESTING IN BED NO DISTRESS NOTED. UNLABORED RESPIRATIONS. DENIES HAVING ANY MORE BLOODY STOOLS. BEDSIDE MONITORING. SR HR60'S. INSTRUCTED ON PLAN OF CARE. CALL LIGHT WITHIN REACH. INSTRUCTED TO CALL FOR ASSISTANCE. NO FAMILY IN ROOM AT THIS TIME.
[2019-02-11] MEDS: DOXAZOSIN MESYLATE 2 MG TABLET PO SCH (20:09)
[2019-02-11] MEDS: GABAPENTIN 100 MG CAPSULE PO SCH (20:10)
[2019-02-11] MEDS: SIMVASTATIN 10 MG TABLET PO SCH (20:10)
--- NOTE | 2019-02-11 22:00 | NUR ---
SPOUSE HERE UPDATED REGARDING STATUS AND PLAN OF CARE. SPOUSE STAYING WITH PATIENT OVER NIGHT.
[2019-02-12] VITALS (12 sets, daily range): BP systolic 134–184; BP diastolic 56–85
[2019-02-12 04:20] LABS: EOSINOPHILS % (AUTO) 2.8 % (0.0-8.0); LYMPHOCYTES % (AUTO) 15.9 % (21.0-51.0); MEAN CORPUSCULAR HEMOGLOBIN 31.8 pg (27.0-33.0); MEAN CORPUSCULAR HGB CONC 34.2 g/dL (32.0-36.0); MEAN CORPUSCULAR VOLUME 92.8 fL (79-99); MONOCYTES % (AUTO) 6.9 % (3.0-13.0); NEUTROPHILS % (AUTO) 73.4 % (40.0-77.0); NUCLEATED RED BLOOD CELLS 0.1 % (0.0-0.19); PLATELET COUNT (AUTO) 124 K/uL (130-400); RED BLOOD CELL COUNT(AUTO) 2.24 MIL/uL (4.50-6.20); RED CELL DISTRIBUTION WIDTH 16.1 % (11.0-15.5); WHITE BLOOD COUNT (AUTO) 4.1 K/uL (4.8-10.8)
[2019-02-12 04:26] LABS: HEMATOCRIT 20.8 % (42-54)
--- NOTE | 2019-02-12 04:39 | NUR ---
ASSESSMENT RESTFUL NIGHT. NO C/O PAIN. Addendum: 02/12/19 at 9460 by SOLITARIO LEE RN RN Amended: Links added.
[2019-02-12 04:44] LABS: BILIRUBIN,TOTAL 0.5 mg/dL (0.2-1.0); CREATININE 7.1 mg/dL (0.5-1.5); POTASSIUM 5.2 mmol/L (3.5-5.1); TOTAL PROTEIN, SERUM 5.8 g/dL (6.0-8.3)
--- NOTE | 2019-02-12 04:48 | NUR ---
REFUSED BED BATH/SHOWER THIS MORNING. Addendum: 02/12/19 at 0449 by SOLITARIO LEE RN RN Amended: Links added.
[2019-02-12] MEDS: METRONIDAZOLE 500MG/100ML BAG 100 ML IVPB SCH ×2 (05:32→05:56)
[2019-02-12] MEDS ORDERED: LEVOFLOXACIN 250 MG/D5W 50ML 50 ML IVPB SCH (09:00)
[2019-02-12 09:22] LABS: HEMATOCRIT 21.1 % (42-54)
[2019-02-12] MEDS: HYDRALAZINE HCL 25 MG TABLET PO SCH ×3 (09:35→21:43)
[2019-02-12] MEDS: METOPROLOL TARTRATE 50 MG TAB PO SCH ×2 (09:35→21:45)
[2019-02-12] MEDS: AMLODIPINE BESYLATE 5 MG TAB PO SCH (09:35)
[2019-02-12] MEDS: CITALOPRAM 20 MG TABLET PO SCH (09:37)
[2019-02-12] MEDS: PANTOPRAZOLE SODIUM 40 MG TABLET.DR PO SCH (09:37)
[2019-02-12 09:39] LABS: HEMOGLOBIN A1C 5.1 % (4.0-6.0)
[2019-02-12 09:42] LABS: CREATININE 7.4 mg/dL (0.5-1.5)
[2019-02-12] MEDS: LEVOTHYROXINE 25 MCG TABLET PO SCH (10:36)
[2019-02-12] MEDS ORDERED: PANT40TA PO (12:15)
[2019-02-12] MEDS ORDERED: LEVO500T2 PO (12:15)
[2019-02-12] MEDS ORDERED: LEVOFLOXACIN 500 MG TABLET PO SCH (12:15)
[2019-02-12] MEDS ORDERED: METR500T PO (12:15)
[2019-02-12] MEDS: METRONIDAZOLE 500 MG TABLET PO SCH ×2 (12:52→21:36)
--- NOTE | 2019-02-12 20:30 | NUR ---
ASSESSMENT PT RESTING QUIETLY AND COMFORTABLY. PT AAO COOPERATIVE. ASSESSMENT COMPLETED, SEE FLOW SHEET. CALLBELL WITH IN REACH.
[2019-02-12] MEDS: SIMVASTATIN 10 MG TABLET PO SCH (21:43)
[2019-02-12] MEDS: DOXAZOSIN MESYLATE 2 MG TABLET PO SCH (21:44)
[2019-02-12] MEDS: GABAPENTIN 100 MG CAPSULE PO SCH (21:46)
[2019-02-13 03:53] LABS: BASOPHILS % (AUTO) 0.6 % (0.0-5.0); EOSINOPHILS % (AUTO) 2.4 % (0.0-8.0); HEMATOCRIT 23.3 % (42-54); LYMPHOCYTES % (AUTO) 9.5 % (21.0-51.0); MEAN CORPUSCULAR HEMOGLOBIN 31.3 pg (27.0-33.0); MEAN CORPUSCULAR HGB CONC 34.4 g/dL (32.0-36.0); MEAN CORPUSCULAR VOLUME 90.9 fL (79-99); MONOCYTES % (AUTO) 7.2 % (3.0-13.0); NEUTROPHILS % (AUTO) 80.3 % (40.0-77.0); PLATELET COUNT (AUTO) 120 K/uL (130-400); RED BLOOD CELL COUNT(AUTO) 2.56 MIL/uL (4.50-6.20); RED CELL DISTRIBUTION WIDTH 16.9 % (11.0-15.5); WHITE BLOOD COUNT (AUTO) 4.5 K/uL (4.8-10.8)
[2019-02-13 03:56] LABS: ALBUMIN 3.2 g/dL (3.5-5.0); BILIRUBIN,TOTAL 0.6 mg/dL (0.2-1.0); CREATININE 4.5 mg/dL (0.5-1.5); TOTAL PROTEIN, SERUM 6.2 g/dL (6.0-8.3)
[2019-02-13 04:04] VITALS: BP 174/77
[2019-02-13] MEDS: METRONIDAZOLE 500 MG TABLET PO SCH (06:26)
[2019-02-13] MEDS: LEVOTHYROXINE 25 MCG TABLET PO SCH ×2 (06:32→07:48)
[2019-02-13] MEDS: METOPROLOL TARTRATE 50 MG TAB PO SCH (07:49)
[2019-02-13] MEDS: PANTOPRAZOLE SODIUM 40 MG TABLET.DR PO SCH (07:49)
[2019-02-13] MEDS: HYDRALAZINE HCL 25 MG TABLET PO SCH (07:49)
[2019-02-13] MEDS: AMLODIPINE BESYLATE 5 MG TAB PO SCH (07:49)
[2019-02-13] MEDS: CITALOPRAM 20 MG TABLET PO SCH (07:50)
[2019-02-13 08:00] VITALS: BP 183/83
[2019-02-13 08:11] LABS: HEPATITIS Bs ANTIGEN SCREEN P Negative (Negative)
== END 2019-02-13 11:25 | disposition home or self-care (01) | DRG 377 ==
LOC: EDH 09:36 → EDHIP 11:33 → 2CH 12:46
PROVIDERS: ADMIT Family Medicine; ATTEND Family Medicine
PROC: 30233N1 Transfusion of Nonautologous Red Blood Cells into Peripheral Vein, Percutaneous Approach (ICD-10-PCS; 2019-02-10)
PROC: 0DBM8ZZ Excision of Descending Colon, Via Natural or Artificial Opening Endoscopic (ICD-10-PCS; principal; 2019-02-11)
PROC: 0DBL8ZZ Excision of Transverse Colon, Via Natural or Artificial Opening Endoscopic (ICD-10-PCS; 2019-02-11)
PROC: 30233K1 Transfusion of Nonautologous Frozen Plasma into Peripheral Vein, Percutaneous Approach (ICD-10-PCS; 2019-02-11)
PROC: 5A1D70Z Performance of Urinary Filtration, Intermittent, Less than 6 Hours Per Day (ICD-10-PCS; 2019-02-12)
DX: K57.33 Diverticulitis of large intestine without perforation or abscess with bleeding (principal); N18.6 End stage renal disease; D62 Acute posthemorrhagic anemia; Q61.3 Polycystic kidney, unspecified; I13.2 Hypertensive heart and chronic kidney disease with heart failure and with stage 5 chronic kidney disease, or end stage renal disease; I73.9 Peripheral vascular disease, unspecified; K76.9 Liver disease, unspecified; I50.9 Heart failure, unspecified; I16.0 Hypertensive urgency; J43.9 Emphysema, unspecified; E78.00 Pure hypercholesterolemia, unspecified; E86.0 Dehydration; E78.5 Hyperlipidemia, unspecified; I25.10 Atherosclerotic heart disease of native coronary artery without angina pectoris; D63.1 Anemia in chronic kidney disease; E03.9 Hypothyroidism, unspecified; K63.5 Polyp of colon; K64.8 Other hemorrhoids; Z99.2 Dependence on renal dialysis; Z82.5 Family history of asthma and other chronic lower respiratory diseases; Z82.49 Family history of ischemic heart disease and other diseases of the circulatory system; Z82.3 Family history of stroke; Z89.511 Acquired absence of right leg below knee; Z88.8 Allergy status to other drugs, medicaments and biological substances
CPT/HCPCS: 36415; 36430; 45385; 74176; 78278; 80053; 80061; 82040; 82140; 82565; 82728; 82948; 83036; 83540; 83550; 84132; 84484; 84520; 85014; 85018; 85025; 85610; 85730; 86701; 86704; 86706; 86850; 86900; 86901; 86922; 86927; 87340; 87390; 87520; 88305; 90935; 93005; A9512; C9113; G0378; J0610; J1815; J1956; J2354; J2597; J2704; J3490; J7030; J7040; J7070; P9016; P9017

== ENCOUNTER 2019-03-02 13:16 | Observation (INO) | payer OTHER ==
[~2019-03-02] VITALS: Ht 180.3 cm; Wt 77.3 kg
[~2019-03-02 13:16] MED LIST changes: +GABA-529 PO; -HYDR-4153 PO; +HYDR-4154 PO; +LEVO500T2 PO; +METR500T PO; +PANT40TA PO; -SIMV10TA6 PO; +SIMV10TA97 PO
[2019-03-02 14:04] LABS: BASOPHILS % (AUTO) 0.8 % (0.0-5.0); HEMATOCRIT 24.8 % (42-54); LYMPHOCYTES % (AUTO) 11.4 % (21.0-51.0); MEAN CORPUSCULAR HEMOGLOBIN 31.7 pg (27.0-33.0); MEAN CORPUSCULAR HGB CONC 33.3 g/dL (32.0-36.0); MEAN CORPUSCULAR VOLUME 95.3 fL (79-99); MONOCYTES % (AUTO) 4.7 % (3.0-13.0); NEUTROPHILS % (AUTO) 79.1 % (40.0-77.0); PLATELET COUNT (AUTO) 142 K/uL (130-400); WHITE BLOOD COUNT (AUTO) 4.2 K/uL (4.8-10.8)
[2019-03-02 14:18] LABS: ALBUMIN 3.3 g/dL (3.5-5.0); BILIRUBIN,TOTAL 0.5 mg/dL (0.2-1.0); TOTAL PROTEIN, SERUM 6.7 g/dL (6.0-8.3)
[2019-03-02 14:20] LABS: CREATININE 12.6 mg/dL (0.5-1.5); POTASSIUM 6.4 mmol/L (3.5-5.1)
[2019-03-02] MEDS ORDERED: CALCIUM GLUCONATE 1 GM/10 ML VIAL IV ONE (14:42)
[2019-03-02] MEDS ORDERED: SODIUM BICARB 50MEQ 50ML VIAL ONE (14:43)
[2019-03-02] MEDS ORDERED: ERYTHROMYCIN BASE 0.5% OPHTH OINT 1 GM TUBE ONE (14:43)
[2019-03-02] MEDS ORDERED: INSULIN HUMULIN R 100 UNIT/ML 3ML ONE (14:44)
[2019-03-02] MEDS ORDERED: DEXTROSE 50%-WATER 50 ML DISP.SYRIN IV ONE (14:44)
[2019-03-02 15:06] LABS: B-TYPE NATRIURETIC PEPTIDE 4090 pg/mL (0-100)
[2019-03-02] MEDS ORDERED: ACETAMINOPHEN 325 MG TAB PO PRN (16:15)
[2019-03-02] MEDS ORDERED: ONDANSETRON HCL 4 MG/2 ML VIAL IV PRN (16:15)
[2019-03-02] MEDS ORDERED: MORPHINE SULFATE 2 MG/ML 1ML SYG IV PRN (16:15)
[2019-03-02 20:50] VITALS: BP 177/74
[2019-03-02] MEDS ORDERED: HYDRALAZINE HCL 20 MG/ML VIAL ONE (23:39)
[2019-03-02] MEDS ORDERED: HYDRALAZINE HCL 20 MG/ML VIAL IM PRN (23:45)
[2019-03-02 23:58] VITALS: BP 179/83
[2019-03-03 04:00] VITALS: BP 157/85
[2019-03-03 05:27] LABS: EOSINOPHILS % (AUTO) 3.6 % (0.0-8.0); HEMATOCRIT 24.3 % (42-54); LYMPHOCYTES % (AUTO) 11.3 % (21.0-51.0); MEAN CORPUSCULAR HEMOGLOBIN 32.7 pg (27.0-33.0); MEAN CORPUSCULAR HGB CONC 34.8 g/dL (32.0-36.0); MEAN CORPUSCULAR VOLUME 93.9 fL (79-99); NEUTROPHILS % (AUTO) 78.1 % (40.0-77.0); PLATELET COUNT (AUTO) 144 K/uL (130-400); RED BLOOD CELL COUNT(AUTO) 2.59 MIL/uL (4.50-6.20); RED CELL DISTRIBUTION WIDTH 15.9 % (11.0-15.5); WHITE BLOOD COUNT (AUTO) 3.7 K/uL (4.8-10.8)
[2019-03-03 05:38] LABS: CREATININE 7.1 mg/dL (0.5-1.5); POTASSIUM 4.7 mmol/L (3.5-5.1)
[2019-03-03 08:00] VITALS: BP 154/84
[2019-03-03] MEDS ORDERED: ENOXAPARIN SODIUM 30 MG/0.3 ML SQ SCH (09:00)
--- NOTE | 2019-03-03 10:26 | NUR ---
DR MADISON PAGED DR MADISON PAGED REGARDING WHETHER TO DIALYZE PATIENT TODAY. GRETA CALL BACK
[2019-03-03] MEDS ORDERED: ALPRAZOLAM 0.5 MG TABLET PO SCH (11:30)
[2019-03-03 12:00] VITALS: BP 167/93
[2019-03-03 16:00] VITALS: BP 173/86
[2019-03-06 06:14] LABS: HEPATITIS A ANTIBODY IGM Negative (Negative); HEPATITIS B CORE IGM Negative (Negative); HEPATITIS Bs ANTIGEN SCREEN P Negative (Negative)
== END 2019-03-03 17:00 | disposition home or self-care (01) ==
LOC: EDH 13:16 → EDHIP 16:02 → 3CH 20:40
PROVIDERS: ADMIT Hospitalist; ATTEND Hospitalist
DX: I12.0 Hypertensive chronic kidney disease with stage 5 chronic kidney disease or end stage renal disease (principal); N18.6 End stage renal disease; E11.22 Type 2 diabetes mellitus with diabetic chronic kidney disease; E11.21 Type 2 diabetes mellitus with diabetic nephropathy; R06.02 Shortness of breath; E87.70 Fluid overload, unspecified; E87.5 Hyperkalemia; E78.5 Hyperlipidemia, unspecified; E11.51 Type 2 diabetes mellitus with diabetic peripheral angiopathy without gangrene; E78.00 Pure hypercholesterolemia, unspecified; K76.9 Liver disease, unspecified; R94.31 Abnormal electrocardiogram [ECG] [EKG]; I25.10 Atherosclerotic heart disease of native coronary artery without angina pectoris; J90 Pleural effusion, not elsewhere classified; J98.11 Atelectasis; Z99.2 Dependence on renal dialysis; Z89.611 Acquired absence of right leg above knee; Z91.15 Patient's noncompliance with renal dialysis; Z79.899 Other long term (current) drug therapy; Z88.8 Allergy status to other drugs, medicaments and biological substances
CPT/HCPCS: 36415 ×2; 71045; 80048; 80053; 80074; 82550; 82948 ×4; 83880; 84484; 85025 ×2; 93005; 96372; 99291; G0378 ×25; J0360; J0610; J1650; J1815; J3490; J7070; 90935

== ENCOUNTER 2019-06-05 07:13 | Day surgery (SDC) | payer OTHER ==
[~2019-06-05 07:13] MED LIST changes: +AMLO5TAB4 PO; -AMLO5TAB9 PO; +ASPI-1005 PO; +CEFT1VIA14 IV; -GABA-529 PO; +GABA100C PO; -HYDR-4154 PO; +HYDR25 PO; -LEVO500T2 PO; -METO-409 PO; +METO50 PO; -METR500T PO; -PANT40TA PO; +TYL3B PO
[2019-06-05 08:06] VITALS: BP 171/78
[2019-06-05 08:30] LABS: CREATININE 5.1 mg/dL (0.5-1.5)
[2019-06-05 09:06] LABS: INR 1.05 (0.85-1.15); PARTIAL THROMBOPLASTIN TIME 30.6 SEC (26.3-35.5)
[2019-06-05] MEDS ORDERED: SODIUM BICARB 50MEQ 50ML VIAL ONE (09:06)
[2019-06-05] MEDS ORDERED: LIDOCAINE HCL 1% MDV 50ML VIAL ONE (09:07)
[2019-06-05 10:20] VITALS: BP 158/80
--- NOTE | 2019-06-05 10:20 | NUR ---
Pt's procedure completed. Pt shows no signs of distress. Pt sitting up in bed, dressing to right chest remains dry, clean and intact. Pt denies any pain, nausea or dizziness.
--- NOTE | 2019-06-05 10:26 | NUR ---
PERMACATH REMOVAL DR JOHNS AT BEDSIDE AND TIME OUT PERFORMED AT 1000. RIGHT UPPER CHEST PERMACATH CLEANED AND PREP IN THE USUAL FASHION. SITE WAS LOCALIZED WITH LIDOCAINE 1% WITH SODIUM BICARB. PERMACATH REMOVED WITHOUT DIFFICULTY AND INTACT. PRESSURE APPLIED AND HEMOSTASIS OBTAINED. AREA COVERED WITH 4X4 GAUZE AND TEGADERM. HAND OFF REPORT GIVEN TO Jayson MICHAUD RN. NO OOZING OR HEMATOMA NOTED.
[2019-06-05 10:35] VITALS: BP 168/86
[2019-06-05 10:45] VITALS: BP 178/90
--- NOTE | 2019-06-05 11:23 | NUR ---
Called Dr. Garcia's office, spoke with cnc applications engineer concert or lecture hall manager, Dr. Mares. Notified Dr. Mares that pt's potassium was a critical value of 6.0. Dr. Mares said it was okay to proceed, however, arranged for pt to go to [facility] (by 11:00 AM) as soon as they got discharged. Pt notified that they were to go to Dialysis immediately following discharge from procedure. Addendum: 06/05/19 at 1301 by RAJAN MICHAUD RN RN Correction: Time should read 8:45, as that is the time I called Dr. Garcia's office.
--- NOTE | 2019-06-05 11:50 | NUR ---
PT discharged. Pt reminded that he was to go directly from here to [facility], as they were waiting for him. Dressing to right chest remains dry, clean and intact. Pt ate lunch prior to discharge, tolerating both fluids and solids. Pt instructed in routine and emergency care of dressing site. Pt instructed to avoid laying flat and to sit up right for the remainder of the day. Pt reports no further questions at this time.
== END 2019-06-05 10:50 | disposition home or self-care (01) ==
LOC: CLH 07:13 → DAH 07:13 → CLH 10:50
PROVIDERS: ATTEND Internal Medicine Nephrology
DX: Z45.2 Encounter for adjustment and management of vascular access device (principal); I12.0 Hypertensive chronic kidney disease with stage 5 chronic kidney disease or end stage renal disease; E11.22 Type 2 diabetes mellitus with diabetic chronic kidney disease; N18.5 Chronic kidney disease, stage 5; K21.9 Gastro-esophageal reflux disease without esophagitis; Z88.8 Allergy status to other drugs, medicaments and biological substances; Z89.511 Acquired absence of right leg below knee; Z98.890 Other specified postprocedural states; Z82.3 Family history of stroke; Z82.49 Family history of ischemic heart disease and other diseases of the circulatory system; Z82.5 Family history of asthma and other chronic lower respiratory diseases
CPT/HCPCS: 36415; 36589; 80048; 82948; 85610; 85730; A4215; A4216; A4221; A4222; A4223 ×3; A4606; A4663; J3490 ×2; J1644

== ENCOUNTER 2019-07-15 12:39 | Inpatient (IN) | payer OTHER ==
[~2019-07-15] VITALS: Ht 180.3 cm; Wt 73.1 kg
[~2019-07-15 12:39] MED LIST changes: +LEVO500T2 PO
[2019-07-15 13:00] LABS: BASOPHILS % (AUTO) 0.5 % (0.0-5.0); EOSINOPHILS % (AUTO) 2.2 % (0.0-8.0); HEMATOCRIT 26.4 % (42-54); LYMPHOCYTES % (AUTO) 7.3 % (21.0-51.0); MEAN CORPUSCULAR HEMOGLOBIN 31.2 pg (27.0-33.0); MEAN CORPUSCULAR HGB CONC 31.8 g/dL (32.0-36.0); MEAN CORPUSCULAR VOLUME 98.1 fL (79-99); MONOCYTES % (AUTO) 9.5 % (3.0-13.0); NEUTROPHILS % (AUTO) 80.3 % (40.0-77.0); PLATELET COUNT (AUTO) 169 K/uL (130-400); RED BLOOD CELL COUNT(AUTO) 2.69 MIL/uL (4.50-6.20); RED CELL DISTRIBUTION WIDTH 15.4 % (11.0-15.5); WHITE BLOOD COUNT (AUTO) 4.1 K/uL (4.8-10.8)
[2019-07-15 13:11] LABS: INR 1.08 (0.85-1.15); PARTIAL THROMBOPLASTIN TIME 30.6 SEC (26.3-35.5); PROTHROMBIN TIME 11.6 SEC (9.6-11.6)
[2019-07-15] MEDS ORDERED: IPRATROPIUM/ALBUTEROL SULFATE 3 ML SOLUTION IH ONE (13:20)
[2019-07-15 13:37] LABS: CARBON DIOXIDE 31 mmol/L (21-32); CHLORIDE 97 mmol/L (101-111); GLOMERULAR FILTR. RATE CALC 10 mL/min (>60); GLUCOSE,RANDOM 89 mg/dL (70-105); POTASSIUM 5.3 mmol/L (3.5-5.1); SODIUM SERUM 137 mmol/L (136-145); UREA NITROGEN, BLOOD 55 mg/dL (7-18)
[2019-07-15 13:50] LABS: ALANINE AMINOTRANSFERASE 26 U/L (12-78); ALBUMIN 3.5 g/dL (3.5-5.0); ASPARTATE AMINOTRANSFERASE 23 U/L (10-37); BILIRUBIN,TOTAL 0.6 mg/dL (0.2-1.0); CREATINE KINASE, TOTAL 35 U/L (21-232); MYOGLOBIN 142 ng/mL (10-92); TOTAL PROTEIN, SERUM 7.3 g/dL (6.0-8.3); TROPONIN I < 0.04 ng/mL (0.00-0.06)
[2019-07-15] MEDS ORDERED: ZOSYN 3.375GM+NS 50ML 50 ML IV ONE (14:10)
[2019-07-15] MEDS ORDERED: ACETAMINOPHEN 325 MG TAB ONE (16:31)
[2019-07-15] MEDS ORDERED: ACETAMINOPHEN 325 MG TAB PO PRN (17:15)
[2019-07-15] MEDS: HEPARIN SODIUM 5000UNIT/ML 1ML VIAL SQ SCH (17:15)
[2019-07-15] MEDS ORDERED: AZITHROMYCIN 500MG+NS 250ML 250 ML IV SCH (17:15)
[2019-07-15] MEDS ORDERED: ONDANSETRON HCL 4 MG/2 ML VIAL IVP PRN (17:15)
[2019-07-15 17:43] LABS: ABG BASE EXCESS 3.3 mmol/L (-2.0-3.0); ABG HCO3 27.8 mmol/L (21.0-28.0); ABG OXYGEN SATURATION 92.5 % (95.0-99.0); ABG PCO2 42 mmHg (35-48)
[2019-07-15] MEDS ORDERED: GLUCAGON 1MG KIT 1 MG ML IM PRN (17:45)
[2019-07-15] MEDS ORDERED: DEXTROSE 50%-WATER 50 ML DISP.SYRIN IV PRN (17:45)
[2019-07-15] MEDS ORDERED: HYDRALAZINE HCL 20 MG/ML VIAL IV PRN (17:45)
[2019-07-15] MEDS ORDERED: CEFTRIAXONE SODIUM 1 GM ONE (18:24)
[2019-07-15] MEDS ORDERED: AZITHROMYCIN 500MG+NS 250ML 250 ML IV ONE (20:24)
[2019-07-15] MEDS: INSULIN HUMULIN R 100 UNIT/ML 3ML SQ SCH (21:00)
[2019-07-16] MEDS: HEPARIN SODIUM 5000UNIT/ML 1ML VIAL SQ SCH ×3 (01:15→17:15)
[2019-07-16] MEDS ORDERED: HEPARIN SODIUM 5000UNIT/ML 1ML VIAL ONE ×3 (02:13→22:20)
[2019-07-16] MEDS ORDERED: HYDRALAZINE HCL 20 MG/ML VIAL ONE ×2 (03:26→12:20)
[2019-07-16] MEDS ORDERED: ACETAMINOPHEN EXTRA STRENGTH 500 MG TABLET ONE (03:32)
[2019-07-16 06:57] LABS: BASOPHILS % (AUTO) 1.4 % (0.0-5.0); EOSINOPHILS % (AUTO) 1.4 % (0.0-8.0); HEMATOCRIT 25.1 % (42-54); LYMPHOCYTES % (AUTO) 9.3 % (21.0-51.0); MEAN CORPUSCULAR HEMOGLOBIN 31.6 pg (27.0-33.0); MEAN CORPUSCULAR HGB CONC 31.5 g/dL (32.0-36.0); MEAN CORPUSCULAR VOLUME 100.4 fL (79-99); MONOCYTES % (AUTO) 10.4 % (3.0-13.0); NEUTROPHILS % (AUTO) 77.1 % (40.0-77.0); PLATELET COUNT (AUTO) 132 K/uL (130-400); RED CELL DISTRIBUTION WIDTH 15.4 % (11.0-15.5); WHITE BLOOD COUNT (AUTO) 2.8 K/uL (4.8-10.8)
[2019-07-16 07:14] LABS: CREATININE 7.5 mg/dL (0.5-1.5); POTASSIUM 5.7 mmol/L (3.5-5.1)
[2019-07-16] MEDS: INSULIN HUMULIN R 100 UNIT/ML 3ML SQ SCH ×4 (07:30→21:00)
[2019-07-16 07:42] LABS: BASOPHILS % (MANUAL) 2 % (0-2); EOSINOPHILS % (MANUAL) 1 % (1-6); LYMPHOCYTES % (MANUAL) 9 % (22-44); MAN.DIFF COMMENT-IMPRESSION MANUAL DIFFERENTIAL; MONOCYTES % (MANUAL) 8 % (2-9); PLATELET MORPHOLOGY COMMENT ADEQUATE; SEGMENTED NEUTROPHILS % 80 % (40-70)
[2019-07-16] MEDS ORDERED: CEFTRIAXONE SODIUM 500 MG VIAL IV SCH (09:00)
[2019-07-16] MEDS ORDERED: SODIUM CHLORIDE 3% FOR INHALATION 4 ML/AMP VIAL.NEB IH ONE ×2 (10:07→18:15)
[2019-07-16 10:47] LABS: APPEARANCE,URINE Clear (CLEAR); BILIRUBIN,URINE Negative (NEGATIVE); COLOR,URINE Yellow (YELLOW); GLUCOSE, URINE (UA) Negative (NEGATIVE); KETONES,URINE Negative (NEGATIVE); LEUKOCYTE ESTERASE ,URINE Negative (NEGATIVE); NITRATE,URINE Negative (NEGATIVE); OCCULT BLOOD,URINE Negative (NEGATIVE); PROTEIN,URINE Negative (NEGATIVE)
--- NOTE | 2019-07-16 11:32 | NUR ---
INITIAL SW met with patient. Patient states he lives with spouse, Zo Bradley, [phone]. Emergency contact is son, Marlon Duarte, [phone]. No [facility] Health but [facility]. PHC with [facility] X 21 hours. Dialysis: M/W/F at [facility] at 9am. transports patient to and from dialysis. DME: walker with seat, wheelchair, shower chair, glucometer (no insulin). Patient needs assistance with ADL's and does not drive. PCP is Dr. Jordi Mensah. Pharmacy is [facility] located on [address]. Patient was last in the hospital from 06/26/2019 - 06/29/2019. Discharge Plan is for home. Addendum: 07/16/19 at 1134 by RICHMOND BENTON SS Amended: Links added.
[2019-07-16] MEDS ORDERED: ACETAMINOPHEN 325 MG TAB ONE (12:30)
[2019-07-16] MEDS ORDERED: AMLODIPINE BESYLATE 5 MG TAB PO SCH (14:45)
[2019-07-16] MEDS ORDERED: HYDRALAZINE HCL 25 MG TABLET PO SCH (14:45)
[2019-07-16] MEDS ORDERED: MEROPENEM 1 GM VIAL IVP SCH ×2 (14:45→20:45)
[2019-07-16] MEDS ORDERED: MEROPENEM 1 GM VIAL ONE ×2 (15:13→22:56)
[2019-07-16] MEDS ORDERED: HYDRALAZINE HCL 25 MG TABLET ONE ×2 (15:14→22:56)
[2019-07-16] MEDS ORDERED: AMLODIPINE BESYLATE 5 MG TAB ONE (15:14)
[2019-07-16] MEDS ORDERED: SODIUM CHLORIDE 0.9% 100 ML IV ONE (15:24)
[2019-07-16] MEDS ORDERED: SODIUM CHLORIDE 0.9% 50 ML IV ONE (15:25)
[2019-07-16] MEDS ORDERED: VANCOMYCIN PROTOCOL PER PHARMACY IV SCH (17:30)
[2019-07-16] MEDS ORDERED: VANCOMYCIN 1GM+NS 250ML 250 ML IV SCH (20:45)
[2019-07-16] MEDS: HYDRALAZINE HCL 25 MG TABLET PO SCH (21:00)
[2019-07-16] MEDS: GABAPENTIN 100 MG CAPSULE PO SCH (21:00)
[2019-07-16] MEDS: DOXAZOSIN MESYLATE 2 MG TABLET PO SCH (21:00)
[2019-07-16] MEDS: METOPROLOL TARTRATE 50 MG TAB PO SCH (21:00)
[2019-07-16] MEDS: SIMVASTATIN 10 MG TABLET PO SCH (21:00)
[2019-07-16] MEDS ORDERED: METOPROLOL TARTRATE 50 MG TAB ONE (22:20)
[2019-07-16] MEDS ORDERED: SIMVASTATIN 10 MG TABLET ONE (22:20)
[2019-07-16] MEDS ORDERED: VANCOMYCIN 1GM+NS 250ML 250 ML IV ONE (22:21)
[2019-07-17] MEDS: HEPARIN SODIUM 5000UNIT/ML 1ML VIAL SQ SCH ×3 (01:15→17:32)
[2019-07-17 01:40] VITALS: BP 145/78
[2019-07-17 04:00] VITALS: BP 162/92
[2019-07-17] MEDS: INSULIN HUMULIN R 100 UNIT/ML 3ML SQ SCH ×4 (07:30→20:51)
[2019-07-17] MEDS: LEVOTHYROXINE 25 MCG TABLET PO SCH (07:52)
[2019-07-17 08:25] VITALS: BP 155/81
[2019-07-17] MEDS: FOLIC ACID/VITAMIN B COMP W-C 1 CAP TAB PO SCH (10:40)
[2019-07-17] MEDS: CALCIUM 600 + VITAMIN D 400 TABLET PO SCH (10:40)
[2019-07-17] MEDS: AMLODIPINE BESYLATE 5 MG TAB PO SCH (10:41)
[2019-07-17] MEDS: HYDRALAZINE HCL 25 MG TABLET PO SCH ×3 (10:41→20:50)
[2019-07-17] MEDS: ASPIRIN 81MG TAB.CHEW PO SCH (10:42)
[2019-07-17] MEDS: METOPROLOL TARTRATE 50 MG TAB PO SCH ×2 (10:42→20:51)
[2019-07-17] MEDS: CITALOPRAM 20 MG TABLET PO SCH (10:42)
[2019-07-17 12:08] VITALS: BP 157/83
[2019-07-17 16:17] VITALS: BP 141/73
[2019-07-17 19:44] VITALS: BP 159/78
[2019-07-17] MEDS: GABAPENTIN 100 MG CAPSULE PO SCH (20:51)
[2019-07-17] MEDS: DOXAZOSIN MESYLATE 2 MG TABLET PO SCH (20:51)
[2019-07-17] MEDS: SIMVASTATIN 10 MG TABLET PO SCH (20:51)
[2019-07-17] MEDS ORDERED: MEROPENEM 1 GM VIAL IVP SCH (22:00)
[2019-07-18 00:06] VITALS: BP 143/79
[2019-07-18] MEDS: HEPARIN SODIUM 5000UNIT/ML 1ML VIAL SQ SCH ×2 (02:50→09:15)
[2019-07-18 04:07] VITALS: BP 136/65
[2019-07-18] MEDS: LEVOTHYROXINE 25 MCG TABLET PO SCH (05:44)
[2019-07-18] MEDS: INSULIN HUMULIN R 100 UNIT/ML 3ML SQ SCH ×2 (05:51→11:30)
[2019-07-18 07:00] VITALS: BP 140/68
--- NOTE | 2019-07-18 08:15 | NUR ---
DAILY ASSESSMENT PT AWAKE AND ALERT, DENIES CHEST PAIN, NO SOB OR LABORED RESPIRATIONS. SLIGHT EDEMA NOTED TO LEFT ARM, PT STATES CHRONIC AND MD AWARE. CALL LIGHT WITHIN REACH, BEDRAIL UP X2
[2019-07-18 11:00] VITALS: BP 172/85
[2019-07-18] MEDS: ASPIRIN 81MG TAB.CHEW PO SCH (13:30)
[2019-07-18] MEDS: HYDRALAZINE HCL 25 MG TABLET PO SCH ×2 (13:30→14:00)
[2019-07-18] MEDS: FOLIC ACID/VITAMIN B COMP W-C 1 CAP TAB PO SCH (13:31)
[2019-07-18] MEDS: CITALOPRAM 20 MG TABLET PO SCH (13:31)
[2019-07-18] MEDS: METOPROLOL TARTRATE 50 MG TAB PO SCH (13:32)
[2019-07-18] MEDS: AMLODIPINE BESYLATE 5 MG TAB PO SCH (13:32)
[2019-07-18] MEDS: CALCIUM 600 + VITAMIN D 400 TABLET PO SCH (13:32)
[2019-07-18] MEDS ORDERED: VANCOMYCIN 1GM+NS 250ML 250 ML IV SCH (14:00)
[2019-07-18 15:00] VITALS: BP 142/77
[2019-07-18] MEDS ORDERED: LEVO500T2 PO (17:29)
--- NOTE | 2019-07-18 19:00 | NUR ---
DISCHARGE INSTRUCTIONS GIVEN, PIV REMOVED AND INTACT, DISCHARGED HOME TO FAMILY VEHICLE VIA WHEELCHAIR.
[2019-07-19 08:10] LABS: HEPATITIS A ANTIBODY IGM Negative (Negative); HEPATITIS B CORE IGM Negative (Negative); HEPATITIS Bs ANTIGEN SCREEN P Negative (Negative)
[2019-08-10] MEDS ORDERED: AMLO5TAB9 PO (20:00)
== END 2019-07-18 17:40 | disposition home or self-care (01) | DRG 177 ==
LOC: EDH 12:39 → EDHIP 15:15 → 2DH 07-17 01:32
PROVIDERS: ADMIT Family Medicine; ATTEND Family Medicine
PROC: 5A1D70Z Performance of Urinary Filtration, Intermittent, Less than 6 Hours Per Day (ICD-10-PCS; 2019-07-16)
PROC: 5A1D70Z Performance of Urinary Filtration, Intermittent, Less than 6 Hours Per Day (ICD-10-PCS; principal; 2019-07-18)
DX: J15.6 Pneumonia due to other Gram-negative bacteria (principal); N18.6 End stage renal disease; J96.01 Acute respiratory failure with hypoxia; I50.33 Acute on chronic diastolic (congestive) heart failure; I13.2 Hypertensive heart and chronic kidney disease with heart failure and with stage 5 chronic kidney disease, or end stage renal disease; J44.0 Chronic obstructive pulmonary disease with (acute) lower respiratory infection; Z99.2 Dependence on renal dialysis; E11.22 Type 2 diabetes mellitus with diabetic chronic kidney disease; K76.9 Liver disease, unspecified; D63.1 Anemia in chronic kidney disease; D72.819 Decreased white blood cell count, unspecified; E11.51 Type 2 diabetes mellitus with diabetic peripheral angiopathy without gangrene; E78.00 Pure hypercholesterolemia, unspecified; Z79.4 Long term (current) use of insulin; Z82.3 Family history of stroke; Z82.49 Family history of ischemic heart disease and other diseases of the circulatory system; Z83.3 Family history of diabetes mellitus; Z89.511 Acquired absence of right leg below knee; Z89.512 Acquired absence of left leg below knee
CPT/HCPCS: 36415; 36600; 71045; 80048; 80053; 80074; 81003; 82550; 82803; 82948; 83605; 83874; 83880; 84145; 84484; 85025; 85610; 85730; 86140; 87040; 87071; 87088; 87205; 87449; 87804; 90935; 93005; 94640; G0378; J0360; J0456; J0696; J1644; J2185; J2543; J3370

== ENCOUNTER 2019-08-10 10:01 | Observation (INO) | payer OTHER ==
[~2019-08-10] VITALS: Ht 180.3 cm; Wt 72.8 kg
[2019-08-10 10:50] LABS: BASOPHILS % (AUTO) 0.6 % (0.0-5.0); EOSINOPHILS % (AUTO) 3.1 % (0.0-8.0); HEMATOCRIT 32.5 % (42-54); LYMPHOCYTES % (AUTO) 10.7 % (21.0-51.0); MEAN CORPUSCULAR HEMOGLOBIN 31.6 pg (27.0-33.0); MEAN CORPUSCULAR HGB CONC 32.6 g/dL (32.0-36.0); MONOCYTES % (AUTO) 7.4 % (3.0-13.0); PLATELET COUNT (AUTO) 132 K/uL (130-400); RED BLOOD CELL COUNT(AUTO) 3.35 MIL/uL (4.50-6.20); RED CELL DISTRIBUTION WIDTH 15.6 % (11.0-15.5); WHITE BLOOD COUNT (AUTO) 5.1 K/uL (4.8-10.8)
[2019-08-10 11:09] LABS: CREATININE 6.9 mg/dL (0.5-1.5); POTASSIUM 4.5 mmol/L (3.5-5.1)
[2019-08-10 11:14] LABS: ALBUMIN 3.8 g/dL (3.5-5.0); BILIRUBIN,TOTAL 0.6 mg/dL (0.2-1.0); TOTAL PROTEIN, SERUM 7.7 g/dL (6.0-8.3)
[2019-08-10] MEDS ORDERED: HYDRALAZINE HCL 20 MG/ML VIAL ONE (12:27)
[2019-08-10] MEDS ORDERED: NITROGLYCERIN 0.4 MG SL TAB SL PRN (14:30)
[2019-08-10] MEDS ORDERED: GUAIFENESIN-DM 200/20 MG 10 ML PO PRN (14:30)
[2019-08-10] MEDS ORDERED: LACTULOSE 20 GM/30 ML UDCUP PO PRN (14:30)
[2019-08-10] MEDS ORDERED: ONDANSETRON HCL 4 MG/2 ML VIAL IV PRN (14:30)
[2019-08-10] MEDS ORDERED: ACETAMINOPHEN 325 MG TAB PO PRN (14:30)
[2019-08-10] MEDS ORDERED: SODIUM CHLORIDE 0.9% 1000ML 1,000 ML IV ONE (15:24)
[2019-08-10 19:45] VITALS: BP 179/87
[2019-08-10] MEDS ORDERED: CALC-911 PO (20:00)
[2019-08-10] MEDS ORDERED: RENAVITE PO (20:00)
[2019-08-10] MEDS ORDERED: HYDR-4154 PO (20:00)
[2019-08-10] MEDS ORDERED: DOXA2TAB2 PO (20:00)
[2019-08-10] MEDS ORDERED: HYDR100T27 PO (20:00)
[2019-08-10] MEDS ORDERED: METO-409 PO (20:00)
[2019-08-10] MEDS ORDERED: AMLO-257 PO (20:00)
[2019-08-10] MEDS ORDERED: PANT40TA PO (20:00)
[2019-08-10 23:25] VITALS: BP 174/83
[2019-08-11 03:36] VITALS: BP 182/93
[2019-08-11 03:45] LABS: BASOPHILS % (AUTO) 0.9 % (0.0-5.0); EOSINOPHILS % (AUTO) 6.1 % (0.0-8.0); HEMATOCRIT 29.7 % (42-54); LYMPHOCYTES % (AUTO) 13.5 % (21.0-51.0); MEAN CORPUSCULAR HEMOGLOBIN 32.2 pg (27.0-33.0); MEAN CORPUSCULAR HGB CONC 33.3 g/dL (32.0-36.0); MEAN CORPUSCULAR VOLUME 96.7 fL (79-99); MONOCYTES % (AUTO) 8.3 % (3.0-13.0); NEUTROPHILS % (AUTO) 70.9 % (40.0-77.0); PLATELET COUNT (AUTO) 115 K/uL (130-400); RED BLOOD CELL COUNT(AUTO) 3.07 MIL/uL (4.50-6.20); RED CELL DISTRIBUTION WIDTH 15.2 % (11.0-15.5); WHITE BLOOD COUNT (AUTO) 3.3 K/uL (4.8-10.8)
[2019-08-11 03:56] LABS: ALBUMIN 3.3 g/dL (3.5-5.0); BILIRUBIN,TOTAL 0.5 mg/dL (0.2-1.0); CREATININE 4.8 mg/dL (0.5-1.5); POTASSIUM 4.2 mmol/L (3.5-5.1); TOTAL PROTEIN, SERUM 6.7 g/dL (6.0-8.3)
[2019-08-11 08:47] VITALS: BP 179/92
[2019-08-11] MEDS: FAMOTIDINE 20MG TAB 20 MG TAB PO SCH (09:31)
[2019-08-11] MEDS: HEPARIN SODIUM 5000UNIT/ML 1ML VIAL SQ SCH (09:38)
[2019-08-11 12:42] VITALS: BP 173/85
--- NOTE | 2019-08-11 15:35 | NUR ---
D/C PLAN CM spoke to pt regarding d/c planning. Pt is readmission from less than 30 days. Reports no changes. States he lives with spouse and has provider about 21 hours/week. Denies having any home health. States spouse transports to HD appointments. Pt attends [facility]. Pt has wk, w/c, and shower chair at home. Pt with frequent readmissions. CM offered short term snf/rehab as possible d/c option. Pt declined. States he wants to return home. CM to f/u. Addendum: 08/11/19 at 1538 by FRAN KNIGHT CM Amended: Links added.
[2019-08-11 16:00] VITALS: BP 171/85
[2019-08-11 20:00] VITALS: BP 188/87
[2019-08-12] VITALS: BP 194/88
[2019-08-12 04:00] VITALS: BP 177/88
[2019-08-12 05:09] LABS: HEMATOCRIT 31.9 % (42-54); MEAN CORPUSCULAR HEMOGLOBIN 31.3 pg (27.0-33.0); MEAN CORPUSCULAR HGB CONC 32.6 g/dL (32.0-36.0); MEAN CORPUSCULAR VOLUME 96.1 fL (79-99); PLATELET COUNT (AUTO) 130 K/uL (130-400); RED BLOOD CELL COUNT(AUTO) 3.32 MIL/uL (4.50-6.20); RED CELL DISTRIBUTION WIDTH 15.3 % (11.0-15.5); WHITE BLOOD COUNT (AUTO) 3.8 K/uL (4.8-10.8)
[2019-08-12 05:22] LABS: % IRON SATURATION 24.1 % (30-44)
[2019-08-12 05:25] LABS: BAND NEUTROPHILS % (MANUAL) 8 % (0-2); LYMPHOCYTES % (MANUAL) 16 % (22-44); MAN.DIFF COMMENT-IMPRESSION MANUAL DIFFERENTIAL; MONOCYTES % (MANUAL) 4 % (2-9); PLATELET MORPHOLOGY COMMENT ADEQUATE; SEGMENTED NEUTROPHILS % 72 % (40-70)
[2019-08-12 05:39] LABS: ALBUMIN 3.6 g/dL (3.5-5.0); BILIRUBIN,TOTAL 0.4 mg/dL (0.2-1.0); CREATININE 6.6 mg/dL (0.5-1.5); POTASSIUM 4.4 mmol/L (3.5-5.1); TOTAL PROTEIN, SERUM 7.2 g/dL (6.0-8.3)
[2019-08-12 08:29] VITALS: BP 177/80
[2019-08-12] MEDS: FAMOTIDINE 20MG TAB 20 MG TAB PO SCH (09:33)
[2019-08-12] MEDS: HEPARIN SODIUM 5000UNIT/ML 1ML VIAL SQ SCH (09:41)
[2019-08-12 11:18] VITALS: BP 173/94
[2019-08-12 16:35] VITALS: BP 178/83
[2019-08-14 08:10] LABS: HEPATITIS A ANTIBODY IGM Negative (Negative); HEPATITIS B CORE IGM Negative (Negative); HEPATITIS Bs ANTIGEN SCREEN P Negative (Negative)
== END 2019-08-12 20:23 | disposition home or self-care (01) ==
LOC: EDH 10:01 → INTOOBSV 14:21 → EDHIP 14:21 → 4AH 19:35
PROVIDERS: ADMIT Hospitalist; ATTEND Hospitalist
PROC: 5A1D70Z Performance of Urinary Filtration, Intermittent, Less than 6 Hours Per Day (ICD-10-PCS; principal; 2019-08-10)
DX: E87.70 Fluid overload, unspecified (principal); J18.9 Pneumonia, unspecified organism; J44.0 Chronic obstructive pulmonary disease with (acute) lower respiratory infection; S50.12XA Contusion of left forearm, initial encounter; S80.02XA Contusion of left knee, initial encounter; I12.0 Hypertensive chronic kidney disease with stage 5 chronic kidney disease or end stage renal disease; N18.6 End stage renal disease; E11.22 Type 2 diabetes mellitus with diabetic chronic kidney disease; I67.4 Hypertensive encephalopathy; J90 Pleural effusion, not elsewhere classified; K31.84 Gastroparesis; E11.43 Type 2 diabetes mellitus with diabetic autonomic (poly)neuropathy; I51.7 Cardiomegaly; D64.9 Anemia, unspecified; E11.21 Type 2 diabetes mellitus with diabetic nephropathy; E11.51 Type 2 diabetes mellitus with diabetic peripheral angiopathy without gangrene; M81.0 Age-related osteoporosis without current pathological fracture; K21.9 Gastro-esophageal reflux disease without esophagitis; E78.5 Hyperlipidemia, unspecified; Z91.19 Patient's noncompliance with other medical treatment and regimen; Z99.2 Dependence on renal dialysis; Z89.511 Acquired absence of right leg below knee; Z91.81 History of falling; Z91.15 Patient's noncompliance with renal dialysis; W18.39XA Other fall on same level, initial encounter; Y93.89 Activity, other specified; Y92.89 Other specified places as the place of occurrence of the external cause; Y99.8 Other external cause status
CPT/HCPCS: 36415 ×3; 71045; 72170; 73090; 73130; 73562; 80053 ×3; 80074; 82140; 82550; 82607; 82746; 83540; 83550; 84484; 85025 ×3; 93005; 96372 ×2; 99285; G0378 ×11; J0360; J1644 ×2; J7030; 90935; G0257

== ENCOUNTER 2019-08-31 19:29 | Inpatient (IN) | payer OTHER ==
[~2019-08-31] VITALS: Ht 154.9 cm; Wt 73.7 kg
[~2019-08-31 19:29] MED LIST changes: +AMLO-257 PO; -AMLO5TAB4 PO; -ASPI-1005 PO; -CALC-190 PO; +CALC-911 PO; -CEFT1VIA14 IV; -FOLI1CAP23 PO; +HYDR-4154 PO; +HYDR100T27 PO; -HYDR25 PO; -LEVO500T2 PO; +METO-409 PO; -METO50 PO; +PANT40TA PO; +RENAVITE PO; -TYL3B PO
[2019-08-31] MEDS ORDERED: NITROGLYCERIN 0.4 MG SL TAB SL ONE (19:47)
[2019-08-31] MEDS ORDERED: ASPIRIN 325 MG TABLET ONE (19:47)
[2019-08-31 20:06] LABS: BASOPHILS % (AUTO) 0.8 % (0.0-5.0); EOSINOPHILS % (AUTO) 5.6 % (0.0-8.0); HEMATOCRIT 33.7 % (42-54); LYMPHOCYTES % (AUTO) 11.4 % (21.0-51.0); MEAN CORPUSCULAR HGB CONC 33.2 g/dL (32.0-36.0); MEAN CORPUSCULAR VOLUME 96.3 fL (79-99); MONOCYTES % (AUTO) 6.8 % (3.0-13.0); NEUTROPHILS % (AUTO) 75.2 % (40.0-77.0); PLATELET COUNT (AUTO) 155 K/uL (130-400); RED CELL DISTRIBUTION WIDTH 14.8 % (11.0-15.5)
[2019-08-31 20:17] LABS: CREATININE 3.6 mg/dL (0.5-1.5); POTASSIUM 4.1 mmol/L (3.5-5.1)
[2019-08-31 20:20] LABS: PARTIAL THROMBOPLASTIN TIME 30.2 SEC (26.3-35.5)
[2019-08-31 20:22] LABS: ALBUMIN 4.1 g/dL (3.5-5.0); BILIRUBIN,TOTAL 0.4 mg/dL (0.2-1.0); TOTAL PROTEIN, SERUM 7.6 g/dL (6.0-8.3)
[2019-08-31 20:50] LABS: INR 1.09 (0.85-1.15); PROTHROMBIN TIME 11.7 SEC (9.6-11.6)
[2019-08-31] MEDS ORDERED: CLONIDINE HCL 0.1 MG TABLET ONE (21:23)
[2019-08-31] MEDS ORDERED: NITROGLYCERIN 0.4 MG SL TAB SL PRN (22:00)
[2019-08-31] MEDS ORDERED: LACTULOSE 20 GM/30 ML UDCUP PO PRN (22:00)
[2019-08-31] MEDS ORDERED: ACETAMINOPHEN 325 MG TAB PO PRN ×2 (22:00)
[2019-08-31] MEDS: HEPARIN SODIUM 5000UNIT/ML 1ML VIAL SQ SCH (22:00)
[2019-08-31] MEDS ORDERED: ONDANSETRON HCL 4 MG/2 ML VIAL IV PRN (22:00)
[2019-08-31] MEDS ORDERED: HEPARIN SODIUM 5000UNIT/ML 1ML VIAL ONE (22:22)
[2019-08-31] MEDS ORDERED: HYDRALAZINE HCL 20 MG/ML VIAL ONE (22:22)
[2019-08-31 22:26] LABS: HEMOGLOBIN A1C 4.4 % (4.0-6.0)
[2019-08-31 22:33] LABS: THYROID STIMULATING HORMONE 15.54 uIU/mL (0.36-3.74)
[2019-08-31 23:35] VITALS: BP 184/87
--- NOTE | 2019-08-31 23:45 | NUR ---
Arrival Pt arrived from ER with no chest pain or SOB, but is complaining of anxiety and slight headache, BP 184/87, HR 58 and 94% on RA. patient states he was just given something for his BP in ER.
--- NOTE | 2019-08-31 23:55 | NUR ---
Belongings patient arrived with cloths with cap and right prosthetic leg Addendum: 09/01/19 at 0040 by TAMIKO HERNÁNDEZ RN RN Amended: Links added.
[2019-09-01] VITALS (7 sets, daily range): BP systolic 158–196; BP diastolic 79–95
--- NOTE | 2019-09-01 00:30 | NUR ---
Called AJ FOOD AND BEVERAGE OPERATIONS MANAGER from hospitalist group about patients BP and anxiety orders received and placed in system
[2019-09-01] MEDS ORDERED: NITROGLYCERIN 1GM/1 INCH PACKET TD STA (00:56)
[2019-09-01] MEDS ORDERED: ALPRAZOLAM 0.5 MG TABLET PO STA (00:56)
[2019-09-01] MEDS ORDERED: NITROGLYCERIN 1GM/1 INCH PACKET TD ONE (01:01)
[2019-09-01] MEDS ORDERED: ALPRAZOLAM 0.5 MG TABLET ONE (01:02)
[2019-09-01 02:28] LABS: BASOPHILS % (AUTO) 0.7 % (0.0-5.0); EOSINOPHILS % (AUTO) 7.7 % (0.0-8.0); HEMATOCRIT 32.1 % (42-54); LYMPHOCYTES % (AUTO) 14.6 % (21.0-51.0); MEAN CORPUSCULAR HEMOGLOBIN 31.9 pg (27.0-33.0); MEAN CORPUSCULAR HGB CONC 32.7 g/dL (32.0-36.0); MEAN CORPUSCULAR VOLUME 97.6 fL (79-99); MONOCYTES % (AUTO) 6.6 % (3.0-13.0); NEUTROPHILS % (AUTO) 70.2 % (40.0-77.0); PLATELET COUNT (AUTO) 125 K/uL (130-400); RED BLOOD CELL COUNT(AUTO) 3.29 MIL/uL (4.50-6.20); RED CELL DISTRIBUTION WIDTH 14.7 % (11.0-15.5); WHITE BLOOD COUNT (AUTO) 4.3 K/uL (4.8-10.8)
[2019-09-01 03:30] LABS: POTASSIUM 3.8 mmol/L (3.5-5.1)
[2019-09-01] MEDS: INSULIN HUMULIN R 100 UNIT/ML 3ML SQ SCH ×4 (07:30→21:00)
--- NOTE | 2019-09-01 08:25 | NUR ---
PT WAS SEND TO CT SCAN FOR HEADACHE COMPLAINTS AND ELEVATED BP.
[2019-09-01] MEDS ORDERED: FAMOTIDINE 20MG TAB 20 MG TAB PO SCH (09:00)
[2019-09-01] MEDS ORDERED: METOPROLOL TARTRATE 25 MG TAB PO SCH (09:00)
[2019-09-01] MEDS: HEPARIN SODIUM 5000UNIT/ML 1ML VIAL SQ SCH ×2 (09:22→21:48)
[2019-09-01] MEDS: ASPIRIN 81MG TAB.CHEW PO SCH (09:23)
[2019-09-01] MEDS: HYDRALAZINE HCL 20 MG/ML VIAL IV PRN ×3 (10:54→20:18)
[2019-09-01] MEDS ORDERED: HYDRALAZINE HCL 25 MG TABLET PO SCH (15:15)
--- NOTE | 2019-09-01 17:49 | NUR ---
cm note met with patient and states resides athome with spouse, uses cane, walker, w/c, mostly the w/c pt has a rt bka with prosthetic leg, provider 4hrs daily. states dc plan is back to home setting, and no dc needs. Addendum: 09/01/19 at 1752 by REJI HOFFMAN CM Amended: Links added.
[2019-09-01] MEDS ORDERED: MINOXIDIL 2.5 MG TAB PO SCH (19:15)
[2019-09-01] MEDS: HYDRALAZINE HCL 25 MG TABLET PO SCH ×2 (20:17→21:49)
[2019-09-01] MEDS: AMLODIPINE BESYLATE 5 MG TAB PO SCH (20:17)
[2019-09-01] MEDS ORDERED: GABAPENTIN 100 MG CAPSULE PO SCH (21:00)
[2019-09-01] MEDS: CALCIUM 600 + VITAMIN D 400 TABLET PO SCH (21:50)
[2019-09-01] MEDS: DOXAZOSIN MESYLATE 2 MG TABLET PO SCH (21:50)
[2019-09-02 00:04] VITALS: BP 179/88
[2019-09-02] MEDS: HYDRALAZINE HCL 20 MG/ML VIAL IV PRN (00:57)
[2019-09-02 04:17] VITALS: BP 169/75
[2019-09-02] MEDS ORDERED: DEXTROSE 50%-WATER 50 ML DISP.SYRIN IV ONE (05:24)
[2019-09-02] MEDS ORDERED: SODIUM CHLORIDE 0.9% 500ML 500 ML IV ONE (05:30)
--- NOTE | 2019-09-02 05:35 | NUR ---
DEXTROSE 50% WAS GIVEN VIA IV D/T BLOOD SUGAR AT 57
[2019-09-02] MEDS ORDERED: DEXTROSE 50%-WATER 25 GM/50 ML VIAL IV SCH (05:45)
[2019-09-02 05:59] LABS: BASOPHILS % (AUTO) 0.9 % (0.0-5.0); HEMATOCRIT 31.3 % (42-54); LYMPHOCYTES % (AUTO) 16.3 % (21.0-51.0); MEAN CORPUSCULAR HEMOGLOBIN 31.4 pg (27.0-33.0); MEAN CORPUSCULAR HGB CONC 32.9 g/dL (32.0-36.0); MEAN CORPUSCULAR VOLUME 95.4 fL (79-99); MONOCYTES % (AUTO) 6.2 % (3.0-13.0); NEUTROPHILS % (AUTO) 69.4 % (40.0-77.0); PLATELET COUNT (AUTO) 145 K/uL (130-400); RED BLOOD CELL COUNT(AUTO) 3.28 MIL/uL (4.50-6.20); RED CELL DISTRIBUTION WIDTH 14.9 % (11.0-15.5); WHITE BLOOD COUNT (AUTO) 4.6 K/uL (4.8-10.8)
--- NOTE | 2019-09-02 06:00 | NUR ---
BLOOD SUGAR AT 97
[2019-09-02 06:10] LABS: CREATININE 5.8 mg/dL (0.5-1.5); MAGNESIUM 2.1 mg/dL (1.80-2.40); POTASSIUM 4.1 mmol/L (3.5-5.1)
[2019-09-02 07:30] VITALS: BP 212/98
[2019-09-02] MEDS: INSULIN HUMULIN R 100 UNIT/ML 3ML SQ SCH (07:30)
--- NOTE | 2019-09-02 07:46 | NUR ---
GAVE REPORT TO GREY DOTY RN, NOTIFIED HER OF PATIENTS LEFT ARM BEING SWOLLEN. PITTING +2
[2019-09-02] MEDS: HEPARIN SODIUM 5000UNIT/ML 1ML VIAL SQ SCH ×2 (08:21→20:12)
[2019-09-02] MEDS: PANTOPRAZOLE SODIUM 40 MG TABLET.DR PO SCH (08:29)
[2019-09-02] MEDS: CALCIUM 600 + VITAMIN D 400 TABLET PO SCH ×2 (08:33→20:14)
[2019-09-02] MEDS: Vitamin B Complex/Vit C/Folic Acid PO SCH (08:33)
[2019-09-02] MEDS: ASPIRIN 81MG TAB.CHEW PO SCH (08:33)
[2019-09-02] MEDS: AMLODIPINE BESYLATE 5 MG TAB PO SCH ×2 (08:33→16:06)
[2019-09-02] MEDS: HYDRALAZINE HCL 25 MG TABLET PO SCH ×2 (08:34→20:15)
[2019-09-02] MEDS ORDERED: MINOXIDIL 2.5 MG TAB PO SCH (10:00)
[2019-09-02 11:30] VITALS: BP 187/96
[2019-09-02 15:30] VITALS: BP 185/82
[2019-09-02] MEDS ORDERED: HYDRALAZINE HCL 25 MG TABLET PO SCH ×2 (16:00→16:15)
[2019-09-02] MEDS ORDERED: HYDRALAZINE HCL 25 MG TABLET ONE (19:57)
[2019-09-02] MEDS: DOXAZOSIN MESYLATE 2 MG TABLET PO SCH (20:14)
[2019-09-02 20:50] VITALS: BP 173/87
[2019-09-03] VITALS (7 sets, daily range): BP systolic 149–186; BP diastolic 77–94
--- NOTE | 2019-09-03 03:30 | NUR ---
RANDOM GLUCOSE CHECK BS AT 69, ORANGE JUICE GIVEN TO PT, PT DRANK OJ.
--- NOTE | 2019-09-03 03:50 | NUR ---
NEW ORDER SPOKE TO SERJIO MUNOZ, NEW ORDER FOR GLUCOSE CHECKS AC/HS AND HYPOGLYCEMIA PROTOCOL.
[2019-09-03] MEDS ORDERED: DEXTROSE 50%-WATER 50 ML DISP.SYRIN IV PRN (04:00)
[2019-09-03] MEDS ORDERED: GLUCAGON 1MG KIT 1 MG ML IM PRN (04:00)
--- NOTE | 2019-09-03 05:38 | NUR ---
GLUCOSE 68 APPLE JUICE GIVEN TO PT, PT DRANK APPLE JUICE.
[2019-09-03] MEDS: HYDRALAZINE HCL 25 MG TABLET PO SCH ×3 (05:59→22:29)
[2019-09-03] MEDS: Vitamin B Complex/Vit C/Folic Acid PO SCH (08:55)
[2019-09-03] MEDS: CALCIUM 600 + VITAMIN D 400 TABLET PO SCH ×2 (08:55→19:34)
[2019-09-03] MEDS: PANTOPRAZOLE SODIUM 40 MG TABLET.DR PO SCH (08:55)
[2019-09-03] MEDS: AMLODIPINE BESYLATE 5 MG TAB PO SCH ×2 (08:55→13:58)
[2019-09-03] MEDS: MINOXIDIL 2.5 MG TAB PO SCH ×3 (08:56→19:34)
[2019-09-03] MEDS: ASPIRIN 81MG TAB.CHEW PO SCH (08:56)
[2019-09-03] MEDS: HEPARIN SODIUM 5000UNIT/ML 1ML VIAL SQ SCH ×2 (09:57→22:33)
[2019-09-03] MEDS: DOXAZOSIN MESYLATE 2 MG TABLET PO SCH (19:34)
[2019-09-04] MEDS ORDERED: GLUCAGON 1MG KIT 1 MG ML IM PRN (01:30)
[2019-09-04] MEDS ORDERED: DEXTROSE 50%-WATER 50 ML DISP.SYRIN IV PRN (01:30)
[2019-09-04] MEDS ORDERED: ALPRAZOLAM 0.5 MG TABLET ONE (03:30)
[2019-09-04] MEDS ORDERED: ALPRAZOLAM 0.5 MG TABLET PO ONE (03:30)
[2019-09-04 03:38] VITALS: BP 165/83
[2019-09-04] MEDS: INSULIN HUMULIN R 100 UNIT/ML 3ML SQ SCH ×4 (04:00→15:08)
[2019-09-04 04:53] LABS: BASOPHILS % (AUTO) 0.7 % (0.0-5.0); EOSINOPHILS % (AUTO) 8.7 % (0.0-8.0); LYMPHOCYTES % (AUTO) 13.3 % (21.0-51.0); MEAN CORPUSCULAR HEMOGLOBIN 31.6 pg (27.0-33.0); MEAN CORPUSCULAR HGB CONC 33.8 g/dL (32.0-36.0); MEAN CORPUSCULAR VOLUME 93.6 fL (79-99); NEUTROPHILS % (AUTO) 70.1 % (40.0-77.0); PLATELET COUNT (AUTO) 151 K/uL (130-400); RED BLOOD CELL COUNT(AUTO) 3.42 MIL/uL (4.50-6.20); RED CELL DISTRIBUTION WIDTH 15.1 % (11.0-15.5); WHITE BLOOD COUNT (AUTO) 4.6 K/uL (4.8-10.8)
[2019-09-04] MEDS: HYDRALAZINE HCL 25 MG TABLET PO SCH ×2 (05:04→12:10)
[2019-09-04 05:15] LABS: POTASSIUM 4.6 mmol/L (3.5-5.1)
[2019-09-04 05:42] LABS: CREATININE 8.5 mg/dL (0.5-1.5)
[2019-09-04] MEDS: AMLODIPINE BESYLATE 5 MG TAB PO SCH ×2 (08:00→12:07)
[2019-09-04 08:10] LABS: HEPATITIS Bs ANTIGEN SCREEN P Negative (Negative)
[2019-09-04 08:11] VITALS: BP 155/81
[2019-09-04 12:04] VITALS: BP 119/66
[2019-09-04] MEDS: CALCIUM 600 + VITAMIN D 400 TABLET PO SCH (12:07)
[2019-09-04] MEDS: Vitamin B Complex/Vit C/Folic Acid PO SCH (12:07)
[2019-09-04] MEDS: PANTOPRAZOLE SODIUM 40 MG TABLET.DR PO SCH (12:07)
[2019-09-04] MEDS: ASPIRIN 81MG TAB.CHEW PO SCH (12:08)
[2019-09-04] MEDS: HEPARIN SODIUM 5000UNIT/ML 1ML VIAL SQ SCH (12:09)
[2019-09-04] MEDS: MINOXIDIL 2.5 MG TAB PO SCH (12:10)
[2019-09-04] MEDS ORDERED: AMLO-258 PO (14:09)
[2019-09-04] MEDS ORDERED: ASPI-1005 PO (14:09)
[2019-09-04] MEDS ORDERED: MINO2.5 PO (14:09)
[2019-09-04] MEDS ORDERED: HYDR100T27 PO (14:09)
[2019-09-05 02:07] LABS: HEPATITIS A ANTIBODY IGM Negative (Negative); HEPATITIS B CORE IGM Negative (Negative); HEPATITIS Bs ANTIGEN SCREEN P Negative (Negative)
== END 2019-09-04 18:05 | disposition home or self-care (01) | DRG 304 ==
LOC: EDH 19:29 → INTOOBSV 19:30 → EDHIP 19:30 → OBSVTOIN 19:30 → UNDOADMOB 19:30 → OBSVTOIN 22:00 → EDHIP 22:00 → 4AH 22:55 → EDHIP 22:55
PROVIDERS: ADMIT Hospitalist; ATTEND Hospitalist
PROC: 5A1D70Z Performance of Urinary Filtration, Intermittent, Less than 6 Hours Per Day (ICD-10-PCS; principal; 2019-09-04)
DX: I16.0 Hypertensive urgency (principal); N18.6 End stage renal disease; E87.1 Hypo-osmolality and hyponatremia; I13.2 Hypertensive heart and chronic kidney disease with heart failure and with stage 5 chronic kidney disease, or end stage renal disease; Z99.2 Dependence on renal dialysis; E11.22 Type 2 diabetes mellitus with diabetic chronic kidney disease; R07.89 Other chest pain; Z91.19 Patient's noncompliance with other medical treatment and regimen; E03.9 Hypothyroidism, unspecified; D63.1 Anemia in chronic kidney disease; E11.51 Type 2 diabetes mellitus with diabetic peripheral angiopathy without gangrene; E78.5 Hyperlipidemia, unspecified; F41.9 Anxiety disorder, unspecified; I25.10 Atherosclerotic heart disease of native coronary artery without angina pectoris; I50.9 Heart failure, unspecified; J44.9 Chronic obstructive pulmonary disease, unspecified; Z82.3 Family history of stroke; Z82.49 Family history of ischemic heart disease and other diseases of the circulatory system; Z89.511 Acquired absence of right leg below knee; Z89.512 Acquired absence of left leg below knee; Z91.14 Patient's other noncompliance with medication regimen; Z88.8 Allergy status to other drugs, medicaments and biological substances
CPT/HCPCS: 36415; 70450; 71045; 80048; 80053; 80061; 80074; 80305; 82550; 82948; 83036; 83735; 83880; 84443; 84484; 85025; 85610; 85730; 86704; 86706; 87340; 90935; 93005; 93306; 93356; 93971; 99291; G0378; J0360; J1644; J7040; J7070

== ENCOUNTER 2019-11-23 15:26 | Inpatient (IN) | payer OTHER ==
[~2019-11-23 15:26] MED LIST changes: -AMLO-257 PO; +AMLO10TA7 PO; +AMLO5TAB9 PO; +ASPI-1005 PO; +MINO2.5 PO
[2019-11-23] MEDS ORDERED: ONDANSETRON HCL 4 MG/2 ML VIAL ONE (18:09)
[2019-11-23 18:29] LABS: BASOPHILS % (AUTO) 0.4 % (0.0-5.0); EOSINOPHILS % (AUTO) 0.4 % (0.0-8.0); HEMATOCRIT 35.6 % (42-54); LYMPHOCYTES % (AUTO) 25.1 % (21.0-51.0); MEAN CORPUSCULAR HEMOGLOBIN 32.2 pg (27.0-33.0); MEAN CORPUSCULAR HGB CONC 33.4 g/dL (32.0-36.0); MEAN CORPUSCULAR VOLUME 96.5 fL (79-99); MONOCYTES % (AUTO) 12.6 % (3.0-13.0); NEUTROPHILS % (AUTO) 61.5 % (40.0-77.0); PLATELET COUNT (AUTO) 87 K/uL (130-400); RED BLOOD CELL COUNT(AUTO) 3.69 MIL/uL (4.50-6.20); RED CELL DISTRIBUTION WIDTH 14.3 % (11.0-15.5); WHITE BLOOD COUNT (AUTO) 2.5 K/uL (4.8-10.8)
[2019-11-23 18:43] LABS: ALBUMIN 3.5 g/dL (3.5-5.0); BILIRUBIN,TOTAL 0.7 mg/dL (0.2-1.0); POTASSIUM 3.8 mmol/L (3.5-5.1); TOTAL PROTEIN, SERUM 7.1 g/dL (6.0-8.3)
[2019-11-23 19:28] LABS: BAND NEUTROPHILS % (MANUAL) 2 % (0-2); BASOPHILS % (MANUAL) 1 % (0-2); EOSINOPHILS % (MANUAL) 1 % (1-6); LYMPHOCYTES % (MANUAL) 15 % (22-44); MONOCYTES % (MANUAL) 6 % (2-9); SEGMENTED NEUTROPHILS % 75 % (40-70)
[2019-11-23 19:29] LABS: MAN.DIFF COMMENT-IMPRESSION MANUAL DIFFERENTIAL
[2019-11-23 20:15] LABS: ABG BASE EXCESS 3.8 mmol/L (-2.0-3.0); ABG HCO3 29.9 mmol/L (21.0-28.0); ABG OXYGEN SATURATION 91.2 % (95.0-99.0); ABG PCO2 50 mmHg (35-48)
[2019-11-23] MEDS ORDERED: ACETAMINOPHEN 325 MG TAB PO PRN ×2 (20:45)
[2019-11-23] MEDS ORDERED: DIPHENHYDRAMINE HCL 25 MG CAPSULE PO PRN (20:45)
[2019-11-23] MEDS ORDERED: ONDANSETRON HCL 4 MG/2 ML VIAL IV PRN (20:45)
[2019-11-23] MEDS ORDERED: ERGOCALCIFEROL (VITAMIN D2) 50,000 UNIT CAPSULE PO ONE (20:45)
[2019-11-23] MEDS: ALBUTEROL INHALER 90MCG/INH IH SCH (20:45)
[2019-11-23] MEDS: AZITHROMYCIN 500MG+NS 250ML 250 ML IV SCH (20:45)
[2019-11-23] MEDS ORDERED: NITROGLYCERIN 0.4 MG SL TAB SL PRN (20:45)
[2019-11-23] MEDS ORDERED: ALBUTEROL INHALER 90MCG/INH IH PRN (20:45)
[2019-11-23] MEDS: CEFTRIAXONE SODIUM 1 GM IV SCH (20:45)
[2019-11-23] MEDS ORDERED: ALBUTEROL INHALER 90MCG/INH IH ONE (20:54)
[2019-11-23] MEDS: METHYLPREDNISOLONE SOD SUCC 40MG/ML 1ML IVP SCH (21:00)
[2019-11-23] MEDS ORDERED: FAMOTIDINE 20MG TAB 20 MG TAB PO SCH (21:00)
[2019-11-23] MEDS ORDERED: HEPARIN SODIUM 5000UNIT/ML 1ML VIAL SQ SCH (21:00)
[2019-11-23] MEDS ORDERED: GLUCAGON 1MG KIT 1 MG ML IM PRN (21:15)
[2019-11-23] MEDS ORDERED: DEXTROSE 50%-WATER 50 ML DISP.SYRIN IV PRN (21:15)
[2019-11-23] MEDS ORDERED: METHYLPREDNISOLONE SOD SUCC 40MG/ML 1ML ONE (21:23)
[2019-11-23 21:24] LABS: CRP QUANTITATIVE 63.7 mg/L (0.00-9.0); MAGNESIUM 2.1 mg/dL (1.80-2.40)
[2019-11-23] MEDS ORDERED: HEPARIN SODIUM 5000UNIT/ML 1ML VIAL ONE (21:24)
[2019-11-23] MEDS ORDERED: ASCORBIC ACID 500 MG TAB ONE (21:24)
[2019-11-23] MEDS ORDERED: ERGOCALCIFEROL (VITAMIN D2) 50,000 UNIT CAPSULE ONE (21:24)
[2019-11-23] MEDS ORDERED: ZINC SULFATE 220 CAPSULE ONE (21:24)
[2019-11-23] MEDS ORDERED: CEFTRIAXONE SODIUM 1 GM ONE (21:25)
[2019-11-23] MEDS ORDERED: AZITHROMYCIN 500MG+NS 250ML 250 ML IV ONE (21:25)
[2019-11-23] MEDS ORDERED: FAMOTIDINE/PF 20 MG/2 ML VIAL IV ONE (21:25)
[2019-11-23 21:30] LABS: INR 0.99 (0.85-1.15); PROTHROMBIN TIME 10.7 SEC (9.6-11.6)
[2019-11-24] MEDS: ALBUTEROL INHALER 90MCG/INH IH SCH ×6 (00:45→20:45)
[2019-11-24] MEDS ORDERED: HEPARIN SODIUM 5000UNIT/ML 1ML VIAL ONE (04:30)
[2019-11-24] MEDS ORDERED: METHYLPREDNISOLONE SOD SUCC 40MG/ML 1ML ONE ×3 (04:30→20:56)
[2019-11-24 05:22] LABS: BASOPHILS % (AUTO) 0.5 % (0.0-5.0); HEMATOCRIT 38.2 % (42-54); MEAN CORPUSCULAR HEMOGLOBIN 31.9 pg (27.0-33.0); MEAN CORPUSCULAR VOLUME 96.7 fL (79-99); MONOCYTES % (AUTO) 4.3 % (3.0-13.0); NEUTROPHILS % (AUTO) 79.2 % (40.0-77.0); PLATELET COUNT (AUTO) 106 K/uL (130-400); RED BLOOD CELL COUNT(AUTO) 3.95 MIL/uL (4.50-6.20); WHITE BLOOD COUNT (AUTO) 1.9 K/uL (4.8-10.8)
[2019-11-24 05:59] LABS: ALBUMIN 3.6 g/dL (3.5-5.0); BILIRUBIN,TOTAL 0.6 mg/dL (0.2-1.0); CRP QUANTITATIVE 76.5 mg/L (0.00-9.0); POTASSIUM 4.5 mmol/L (3.5-5.1); TOTAL PROTEIN, SERUM 7.7 g/dL (6.0-8.3)
[2019-11-24 06:43] LABS: CREATININE 8.4 mg/dL (0.5-1.5)
[2019-11-24] MEDS: INSULIN HUMULIN R 100 UNIT/ML 3ML SQ SCH ×4 (07:30→21:00)
[2019-11-24] MEDS ORDERED: ASCORBIC ACID 500 MG TAB ONE (08:38)
[2019-11-24] MEDS ORDERED: ZINC SULFATE 220 CAPSULE ONE (08:38)
[2019-11-24] MEDS ORDERED: CEFTRIAXONE SODIUM 1 GM ONE ×2 (08:39→20:57)
[2019-11-24] MEDS ORDERED: AZITHROMYCIN 500MG+NS 250ML 250 ML IV ONE ×2 (08:39→20:57)
[2019-11-24] MEDS ORDERED: FAMOTIDINE/PF 20 MG/2 ML VIAL IV ONE (08:39)
[2019-11-24] MEDS: METHYLPREDNISOLONE SOD SUCC 40MG/ML 1ML IVP SCH ×3 (09:00→21:00)
[2019-11-24] MEDS: ASCORBIC ACID 500 MG TAB PO SCH (09:00)
[2019-11-24] MEDS: FAMOTIDINE 20MG TAB 20 MG TAB PO SCH (09:00)
[2019-11-24] MEDS: ZINC SULFATE 220 CAPSULE PO SCH (09:00)
[2019-11-24] MEDS ORDERED: HYDRALAZINE HCL 20 MG/ML VIAL IV PRN (10:30)
[2019-11-24] MEDS ORDERED: AMLODIPINE BESYLATE 5 MG TAB PO SCH (10:30)
[2019-11-24] MEDS: HYDRALAZINE HCL 25 MG TABLET PO SCH ×2 (14:00→21:00)
[2019-11-24] MEDS ORDERED: HYDRALAZINE HCL 25 MG TABLET ONE ×2 (16:26→20:56)
[2019-11-24] MEDS ORDERED: AMLODIPINE BESYLATE 5 MG TAB ONE (16:26)
[2019-11-24] MEDS ORDERED: HYDRALAZINE HCL 20 MG/ML VIAL ONE (16:26)
--- NOTE | 2019-11-24 17:03 | NUR ---
INITIAL SW spoke with patient's spouse, Zo Pena. Patient lives with spouse. No home health but [facility] nurse comes to visit X 2 month. PHC with [facility] X 40 hours a week. Dialysis: MWF at [facility] at 9:30am. Family helps with transport. states that patient was presently being sent to [facility] in [place] due to COVID 19 diagnosis. DME: wheelchair, walker with seat, BPM, glucometer (no insulin). Patient needs help with ADL's and doesn't drive. PCP is Dr. Mensah. Pharmacy is [email or web address] located on [address] in [place]. DCP is home. Addendum: 11/24/19 at 1706 by RICHMOND BENTON SS Amended: Links added.
[2019-11-24] MEDS: CEFTRIAXONE SODIUM 1 GM IV SCH (20:45)
[2019-11-24] MEDS: AZITHROMYCIN 500MG+NS 250ML 250 ML IV SCH (20:45)
[2019-11-24] MEDS: MINOXIDIL 2.5 MG TAB PO SCH (21:00)
[2019-11-24] MEDS ORDERED: INSULIN HUMULIN R 100 UNIT/ML 3ML ONE (21:50)
[2019-11-24] MEDS ORDERED: METOPROLOL TARTRATE 50 MG TAB ONE (23:19)
[2019-11-24] MEDS ORDERED: ONDANSETRON HCL 4 MG/2 ML VIAL ONE (23:21)
[2019-11-24 23:41] LABS: CREATININE 5.8 mg/dL (0.5-1.5); MAGNESIUM 1.8 mg/dL (1.80-2.40); POTASSIUM 3.8 mmol/L (3.5-5.1)
[2019-11-25] MEDS: ALBUTEROL INHALER 90MCG/INH IH SCH ×5 (00:45→17:08)
[2019-11-25] MEDS ORDERED: HYDRALAZINE HCL 20 MG/ML VIAL ONE ×2 (01:33→04:49)
[2019-11-25 05:16] LABS: HEMATOCRIT 38.5 % (42-54); LYMPHOCYTES % (AUTO) 10.9 % (21.0-51.0); MEAN CORPUSCULAR HEMOGLOBIN 31.8 pg (27.0-33.0); MEAN CORPUSCULAR HGB CONC 33.8 g/dL (32.0-36.0); MEAN CORPUSCULAR VOLUME 94.1 fL (79-99); NEUTROPHILS % (AUTO) 80.8 % (40.0-77.0); PLATELET COUNT (AUTO) 127 K/uL (130-400); RED BLOOD CELL COUNT(AUTO) 4.09 MIL/uL (4.50-6.20); RED CELL DISTRIBUTION WIDTH 13.8 % (11.0-15.5); WHITE BLOOD COUNT (AUTO) 3.1 K/uL (4.8-10.8)
[2019-11-25 05:18] LABS: ALBUMIN 3.4 g/dL (3.5-5.0); BILIRUBIN,TOTAL 0.5 mg/dL (0.2-1.0); CREATININE 6.4 mg/dL (0.5-1.5); CRP QUANTITATIVE 47.3 mg/L (0.00-9.0); POTASSIUM 4.1 mmol/L (3.5-5.1); TOTAL PROTEIN, SERUM 7.2 g/dL (6.0-8.3)
[2019-11-25 05:37] LABS: B-TYPE NATRIURETIC PEPTIDE 381 pg/mL (0-100)
[2019-11-25] MEDS: INSULIN HUMULIN R 100 UNIT/ML 3ML SQ SCH ×3 (07:30→17:06)
[2019-11-25] MEDS ORDERED: METOPROLOL SUCCINATE 50 MG TAB.SR.24H PO SCH (09:00)
[2019-11-25] MEDS ORDERED: AMLODIPINE BESYLATE 5 MG TAB PO SCH (09:00)
[2019-11-25] MEDS ORDERED: ASCORBIC ACID 500 MG TAB ONE (10:12)
[2019-11-25] MEDS ORDERED: METHYLPREDNISOLONE SOD SUCC 40MG/ML 1ML ONE ×3 (10:12→21:42)
[2019-11-25] MEDS ORDERED: AMLODIPINE BESYLATE 5 MG TAB ONE (10:13)
[2019-11-25] MEDS ORDERED: HYDRALAZINE HCL 25 MG TABLET ONE ×3 (10:13→21:42)
[2019-11-25] MEDS ORDERED: FAMOTIDINE 20MG TAB 20 MG TAB ONE (10:13)
[2019-11-25] MEDS ORDERED: ZINC SULFATE 220 CAPSULE ONE (10:13)
[2019-11-25] MEDS ORDERED: CEFTRIAXONE SODIUM 1 GM ONE ×2 (10:14→21:42)
[2019-11-25] MEDS ORDERED: AZITHROMYCIN 500MG+NS 250ML 250 ML IV ONE ×2 (10:14→21:42)
[2019-11-25] MEDS: METHYLPREDNISOLONE SOD SUCC 40MG/ML 1ML IVP SCH ×2 (10:29→13:36)
[2019-11-25] MEDS: FAMOTIDINE 20MG TAB 20 MG TAB PO SCH (10:30)
[2019-11-25] MEDS: ASCORBIC ACID 500 MG TAB PO SCH (10:30)
[2019-11-25] MEDS: ZINC SULFATE 220 CAPSULE PO SCH (10:30)
[2019-11-25] MEDS: MINOXIDIL 2.5 MG TAB PO SCH (10:30)
[2019-11-25] MEDS: HYDRALAZINE HCL 25 MG TABLET PO SCH ×2 (10:30→13:36)
[2019-11-25] MEDS ORDERED: INSULIN HUMULIN R 100 UNIT/ML 3ML ONE ×2 (17:00→21:43)
[2019-11-26 06:21] LABS: HEMATOCRIT 39.9 % (42-54); MEAN CORPUSCULAR HEMOGLOBIN 32.6 pg (27.0-33.0); MEAN CORPUSCULAR HGB CONC 34.6 g/dL (32.0-36.0); MEAN CORPUSCULAR VOLUME 94.3 fL (79-99); NEUTROPHILS % (AUTO) 91.8 % (40.0-77.0); PLATELET COUNT (AUTO) 156 K/uL (130-400); RED BLOOD CELL COUNT(AUTO) 4.23 MIL/uL (4.50-6.20)
[2019-11-26 06:55] LABS: ALBUMIN 3.2 g/dL (3.5-5.0); BILIRUBIN,TOTAL 0.5 mg/dL (0.2-1.0); CREATININE 7.5 mg/dL (0.5-1.5); CRP QUANTITATIVE 30.8 mg/L (0.00-9.0); POTASSIUM 4.9 mmol/L (3.5-5.1); TOTAL PROTEIN, SERUM 6.9 g/dL (6.0-8.3)
[2019-11-26] MEDS ORDERED: ASCORBIC ACID 500 MG TAB ONE (07:55)
[2019-11-26] MEDS ORDERED: METHYLPREDNISOLONE SOD SUCC 40MG/ML 1ML ONE (07:55)
[2019-11-26] MEDS ORDERED: HYDRALAZINE HCL 25 MG TABLET ONE ×2 (07:55→14:31)
[2019-11-26] MEDS ORDERED: FAMOTIDINE/PF 20 MG/2 ML VIAL IV ONE (07:56)
[2019-11-26] MEDS ORDERED: ZINC SULFATE 220 CAPSULE ONE (07:56)
[2019-11-26] MEDS ORDERED: AMLODIPINE BESYLATE 5 MG TAB ONE (08:22)
[2019-11-26] MEDS ORDERED: APIX2.5T PO (10:14)
[2019-11-26] MEDS ORDERED: DEXA6TAB PO (10:14)
[2019-11-26] MEDS ORDERED: INSULIN HUMULIN R 100 UNIT/ML 3ML ONE (17:40)
== END 2019-11-26 18:26 | disposition home or self-care (01) | DRG 871 ==
LOC: EDH 15:26 → EDHIP 20:37
PROVIDERS: ADMIT Internal Medicine; ATTEND Internal Medicine
PROC: 5A1D70Z Performance of Urinary Filtration, Intermittent, Less than 6 Hours Per Day (ICD-10-PCS; principal; 2019-11-24)
DX: A41.89 Other specified sepsis (principal); U07.1 COVID-19; J96.01 Acute respiratory failure with hypoxia; N18.6 End stage renal disease; J12.89 Other viral pneumonia; I13.2 Hypertensive heart and chronic kidney disease with heart failure and with stage 5 chronic kidney disease, or end stage renal disease; R65.20 Severe sepsis without septic shock; D69.6 Thrombocytopenia, unspecified; E11.22 Type 2 diabetes mellitus with diabetic chronic kidney disease; I50.9 Heart failure, unspecified; D64.9 Anemia, unspecified; E78.5 Hyperlipidemia, unspecified; M81.0 Age-related osteoporosis without current pathological fracture; E78.00 Pure hypercholesterolemia, unspecified; Z99.2 Dependence on renal dialysis; Z89.511 Acquired absence of right leg below knee; Z88.8 Allergy status to other drugs, medicaments and biological substances; Z83.6 Family history of other diseases of the respiratory system; Z82.3 Family history of stroke; Z82.49 Family history of ischemic heart disease and other diseases of the circulatory system
CPT/HCPCS: 36415; 36600; 71045; 80048; 80053; 82550; 82728; 82803; 82948; 83605; 83615; 83735; 83880; 84100; 84145; 84484; 85025; 85378; 85610; 85730; 86140; 87040; 87486; 87581; 87633; 87798; 90935; 93005; 93970; 94760; 99291; G0378; J0360; J0456; J0696; J1644; J1815; J2405; J2920; J3490; U0003

== ENCOUNTER 2019-11-28 14:28 | Emergency (ER) | payer OTHER ==
[~2019-11-28 14:28] MED LIST changes: +APIX2.5T PO; +DEXA6TAB PO
[2019-11-28 15:40] LABS: HEMATOCRIT 34.7 % (42-54); LYMPHOCYTES % (AUTO) 4.3 % (21.0-51.0); MEAN CORPUSCULAR HEMOGLOBIN 32.2 pg (27.0-33.0); MEAN CORPUSCULAR HGB CONC 34.3 g/dL (32.0-36.0); MEAN CORPUSCULAR VOLUME 93.8 fL (79-99); MONOCYTES % (AUTO) 4.7 % (3.0-13.0); NEUTROPHILS % (AUTO) 90.3 % (40.0-77.0); PLATELET COUNT (AUTO) 144 K/uL (130-400); RED CELL DISTRIBUTION WIDTH 13.7 % (11.0-15.5); WHITE BLOOD COUNT (AUTO) 6.8 K/uL (4.8-10.8)
[2019-11-28 15:57] LABS: INR 0.96 (0.85-1.15); PARTIAL THROMBOPLASTIN TIME 36.4 SEC (26.3-35.5); PROTHROMBIN TIME 10.4 SEC (9.6-11.6)
[2019-11-28 16:10] LABS: B-TYPE NATRIURETIC PEPTIDE 51 pg/mL (0-100)
[2019-11-28 16:11] LABS: ALBUMIN 3.3 g/dL (3.5-5.0); BILIRUBIN,TOTAL 0.6 mg/dL (0.2-1.0); POTASSIUM 4.5 mmol/L (3.5-5.1); TOTAL PROTEIN, SERUM 7.2 g/dL (6.0-8.3)
[2019-11-28 16:14] LABS: CREATININE 10.5 mg/dL (0.5-1.5)
== END 2019-11-28 14:37 | disposition home or self-care (01) ==
LOC: EDH 14:28
DX: U07.1 COVID-19 (principal); R07.89 Other chest pain; I12.0 Hypertensive chronic kidney disease with stage 5 chronic kidney disease or end stage renal disease; E11.22 Type 2 diabetes mellitus with diabetic chronic kidney disease; N18.6 End stage renal disease; E78.00 Pure hypercholesterolemia, unspecified; M81.0 Age-related osteoporosis without current pathological fracture; Z99.2 Dependence on renal dialysis; Z88.8 Allergy status to other drugs, medicaments and biological substances
CPT/HCPCS: 36415; 71045; 80053; 82550; 82948; 83605; 83690; 83880; 84484; 85025; 85610; 85730; 86850; 86900; 86901; 87804; 93005

== ENCOUNTER 2020-08-15 17:14 | Inpatient (IN) | payer OTHER ==
[~2020-08-15] VITALS: Ht 180.3 cm; Wt 69.9 kg
[~2020-08-15 17:14] MED LIST changes: +AMLO-257 PO; +AMLO-258 PO; -AMLO10TA7 PO; -AMLO5TAB9 PO
[2020-08-15 17:54] LABS: BASOPHILS % (AUTO) 0.4 % (0.0-5.0); HEMATOCRIT 33.5 % (42-54); LYMPHOCYTES % (AUTO) 10.2 % (21.0-51.0); MEAN CORPUSCULAR HGB CONC 33.1 g/dL (32.0-36.0); MEAN CORPUSCULAR VOLUME 99.7 fL (79-99); MONOCYTES % (AUTO) 9.8 % (3.0-13.0); NEUTROPHILS % (AUTO) 79.2 % (40.0-77.0); PLATELET COUNT (AUTO) 88 K/uL (130-400); RED BLOOD CELL COUNT(AUTO) 3.36 MIL/uL (4.50-6.20); RED CELL DISTRIBUTION WIDTH 14.3 % (11.0-15.5); WHITE BLOOD COUNT (AUTO) 2.5 K/uL (4.8-10.8)
[2020-08-15 18:10] LABS: CARBON DIOXIDE 27 mmol/L (21-32); CHLORIDE 97 mmol/L (101-111); CREATININE 6.5 mg/dL (0.5-1.5); GLOMERULAR FILTR. RATE CALC 9 mL/min (>60); GLUCOSE,RANDOM 65 mg/dL (70-105); POTASSIUM 4.8 mmol/L (3.5-5.1); SODIUM SERUM 135 mmol/L (136-145); UREA NITROGEN, BLOOD 41 mg/dL (7-18)
[2020-08-15 18:15] LABS: ALANINE AMINOTRANSFERASE 17 U/L (12-78); ALBUMIN 3.7 g/dL (3.5-5.0); ASPARTATE AMINOTRANSFERASE 20 U/L (10-37); BILIRUBIN,TOTAL 1.1 mg/dL (0.2-1.0); CREATINE KINASE, TOTAL 113 U/L (21-232); TOTAL PROTEIN, SERUM 6.7 g/dL (6.0-8.3)
[2020-08-15 18:17] LABS: INR 1.17 (0.85-1.15); LIPASE < 50 U/L (114-286); PARTIAL THROMBOPLASTIN TIME 33.1 SEC (26.3-35.5); PROTHROMBIN TIME 12.1 SEC (9.6-11.6)
[2020-08-15] MEDS ORDERED: DEXTROSE 50%-WATER 50 ML DISP.SYRIN IV ONE (18:19)
[2020-08-15] MEDS ORDERED: DIPHENHYDRAMINE HCL 25 MG CAPSULE ONE (18:23)
[2020-08-15 18:29] LABS: LYMPHOCYTES % (MANUAL) 31 % (22-44); MAN.DIFF COMMENT-IMPRESSION MANUAL DIFFERENTIAL; MONOCYTES % (MANUAL) 7 % (2-9); PLATELET MORPHOLOGY COMMENT DECREASED; REACTIVE LYMPHOCYTES 1 % (0-0); SEGMENTED NEUTROPHILS % 61 % (40-70)
[2020-08-15] MEDS ORDERED: ONDANSETRON 4MG INJ IV PRN (19:00)
[2020-08-15] MEDS ORDERED: ACETAMINOPHEN 325 MG TAB PO PRN ×2 (19:00)
[2020-08-15] MEDS: DOXYCYCLINE 100MG+NS 250ML 250 ML IV SCH (20:00)
[2020-08-15] MEDS ORDERED: ONDANSETRON 4MG INJ ONE (20:09)
[2020-08-15] MEDS ORDERED: GLUCAGON 1MG KIT 1 MG ML IM PRN (20:15)
[2020-08-15] MEDS ORDERED: DEXTROSE 50%-WATER 50 ML DISP.SYRIN IV PRN (20:15)
[2020-08-15] MEDS: FAMOTIDINE 20MG VIAL IV SCH (21:00)
[2020-08-15] MEDS ORDERED: FAMOTIDINE 20MG VIAL IV ONE (21:51)
[2020-08-15] MEDS ORDERED: DOXYCYCLINE 100MG+NS 250ML 250 ML IV ONE (21:51)
[2020-08-15] MEDS ORDERED: LORAZEPAM 2 MG/ML 1 ML VIAL ONE (21:56)
[2020-08-16 05:23] LABS: BASOPHILS % (AUTO) 0.4 % (0.0-5.0); EOSINOPHILS % (AUTO) 1.7 % (0.0-8.0); HEMATOCRIT 34.6 % (42-54); MEAN CORPUSCULAR HEMOGLOBIN 32.1 pg (27.0-33.0); MEAN CORPUSCULAR HGB CONC 32.7 g/dL (32.0-36.0); MEAN CORPUSCULAR VOLUME 98.3 fL (79-99); MONOCYTES % (AUTO) 11.5 % (3.0-13.0); PLATELET COUNT (AUTO) 84 K/uL (130-400); RED BLOOD CELL COUNT(AUTO) 3.52 MIL/uL (4.50-6.20); RED CELL DISTRIBUTION WIDTH 14.2 % (11.0-15.5); WHITE BLOOD COUNT (AUTO) 2.3 K/uL (4.8-10.8)
[2020-08-16 05:40] LABS: ALBUMIN 3.6 g/dL (3.5-5.0); BILIRUBIN,TOTAL 0.9 mg/dL (0.2-1.0); CREATININE 6.8 mg/dL (0.5-1.5); POTASSIUM 4.9 mmol/L (3.5-5.1); TOTAL PROTEIN, SERUM 6.6 g/dL (6.0-8.3)
[2020-08-16 05:52] LABS: B-TYPE NATRIURETIC PEPTIDE 3050 pg/mL (0-100)
[2020-08-16] MEDS ORDERED: DEXTROSE 50%-WATER 50 ML DISP.SYRIN IV ONE ×2 (06:17→13:36)
[2020-08-16] MEDS: DOXYCYCLINE 100MG+NS 250ML 250 ML IV SCH ×2 (08:00→20:41)
[2020-08-16] MEDS ORDERED: FAMOTIDINE 20MG VIAL IV ONE (09:01)
[2020-08-16] MEDS ORDERED: DOXYCYCLINE 100MG+NS 250ML 250 ML IV ONE (09:01)
[2020-08-16 12:16] LABS: CHOLESTEROL 108 mg/dL (<200); HDL CHOLESTEROL 96 mg/dL (29-71); LDL DIRECT 42 mg/dL (0-99); TRIGLYCERIDES 92 mg/dL (30-200)
[2020-08-16 18:31] VITALS: BP 162/68
[2020-08-16 19:40] VITALS: BP 165/79
[2020-08-16] MEDS: ATORVASTATIN 20 MG TABLET PO SCH (20:41)
[2020-08-16] MEDS: METOPROLOL TARTRATE 25 MG TAB PO SCH (20:41)
[2020-08-16] MEDS: FAMOTIDINE 20MG VIAL IV SCH (20:41)
[2020-08-16 23:52] VITALS: BP 169/69
[2020-08-17 03:53] VITALS: BP 142/64
[2020-08-17 06:09] LABS: BASOPHILS % (AUTO) 0.6 % (0.0-5.0); HEMATOCRIT 30.9 % (42-54); LYMPHOCYTES % (AUTO) 12.4 % (21.0-51.0); MEAN CORPUSCULAR HEMOGLOBIN 32.5 pg (27.0-33.0); MEAN CORPUSCULAR HGB CONC 33.7 g/dL (32.0-36.0); MEAN CORPUSCULAR VOLUME 96.6 fL (79-99); MONOCYTES % (AUTO) 13.6 % (3.0-13.0); NEUTROPHILS % (AUTO) 70.1 % (40.0-77.0); PLATELET COUNT (AUTO) 91 K/uL (130-400); RED CELL DISTRIBUTION WIDTH 13.9 % (11.0-15.5); WHITE BLOOD COUNT (AUTO) 3.3 K/uL (4.8-10.8)
[2020-08-17 06:23] LABS: POTASSIUM 4.1 mmol/L (3.5-5.1)
[2020-08-17 06:27] LABS: B-TYPE NATRIURETIC PEPTIDE 2270 pg/mL (0-100)
[2020-08-17 08:13] VITALS: BP 115/82
[2020-08-17] MEDS: METOPROLOL TARTRATE 25 MG TAB PO SCH ×2 (10:45→21:28)
[2020-08-17] MEDS: ASPIRIN 81MG CHEW TAB PO SCH (10:46)
[2020-08-17] MEDS: DOXYCYCLINE 100MG+NS 250ML 250 ML IV SCH ×2 (11:37→21:27)
[2020-08-17 12:00] VITALS: BP 169/78
[2020-08-17 16:53] VITALS: BP 173/81
[2020-08-17] MEDS ORDERED: AMLODIPINE 5 MG TAB PO SCH (18:00)
[2020-08-17] MEDS ORDERED: AMLODIPINE 5 MG TAB ONE (19:16)
[2020-08-17 19:39] VITALS: BP 192/87
[2020-08-17] MEDS ORDERED: SIMVASTATIN 10 MG TABLET PO SCH (21:00)
[2020-08-17] MEDS: HYDRALAZINE 25MG TABLET PO SCH (21:28)
[2020-08-17] MEDS: ATORVASTATIN 20 MG TABLET PO SCH (21:28)
[2020-08-17] MEDS ORDERED: HYDR100T27 PO (21:46)
[2020-08-17 21:53] VITALS: BP 178/87
[2020-08-18] MEDS ORDERED: LORAZEPAM 0.5 MG TABLET PO ONE
[2020-08-18] MEDS ORDERED: CLONIDINE HCL 0.1 MG TABLET PO SCH
[2020-08-18 00:09] VITALS: BP 190/86
[2020-08-18 01:33] VITALS: BP 158/72
[2020-08-18 03:50] VITALS: BP 178/78
[2020-08-18 05:30] LABS: BASOPHILS % (AUTO) 0.3 % (0.0-5.0); EOSINOPHILS % (AUTO) 5.2 % (0.0-8.0); LYMPHOCYTES % (AUTO) 16.6 % (21.0-51.0); MEAN CORPUSCULAR HEMOGLOBIN 31.6 pg (27.0-33.0); MEAN CORPUSCULAR HGB CONC 32.9 g/dL (32.0-36.0); MONOCYTES % (AUTO) 12.2 % (3.0-13.0); NEUTROPHILS % (AUTO) 65.4 % (40.0-77.0); PLATELET COUNT (AUTO) 103 K/uL (130-400); RED BLOOD CELL COUNT(AUTO) 3.23 MIL/uL (4.50-6.20); RED CELL DISTRIBUTION WIDTH 13.5 % (11.0-15.5); WHITE BLOOD COUNT (AUTO) 3.6 K/uL (4.8-10.8)
[2020-08-18 05:49] LABS: CREATININE 6.1 mg/dL (0.5-1.5)
[2020-08-18 07:00] VITALS: BP 167/77
[2020-08-18] MEDS ORDERED: LEVOTHYROXINE 25 MCG TABLET PO SCH (07:30)
[2020-08-18] MEDS: DOXYCYCLINE 100MG+NS 250ML 250 ML IV SCH (07:57)
[2020-08-18] MEDS: HYDRALAZINE 25MG TABLET PO SCH (07:58)
[2020-08-18] MEDS: ASPIRIN 81MG CHEW TAB PO SCH (07:58)
[2020-08-18] MEDS: METOPROLOL TARTRATE 25 MG TAB PO SCH (07:58)
[2020-08-18] MEDS ORDERED: PANTOPRAZOLE 40 MG TAB DR PO SCH (08:00)
[2020-08-18] MEDS ORDERED: ASPIRIN 81MG CHEW TAB PO SCH (09:00)
[2020-08-18] MEDS ORDERED: AMLODIPINE 5 MG TAB PO SCH (09:00)
[2020-08-18] MEDS ORDERED: METO25 PO (10:46)
[2020-08-18 11:30] VITALS: BP 139/67
[2020-08-18] MEDS ORDERED: LEVO250T43 PO (13:46)
[2020-08-18 16:00] VITALS: BP 169/80
[2020-08-19 03:09] LABS: HEPATITIS B CORE IGM Negative (Negative); HEPATITIS Bs ANTIGEN SCREEN P Negative (Negative)
== END 2020-08-18 17:10 | disposition home or self-care (01) | DRG 291 ==
LOC: EDH 17:14 → EDHIP 18:46 → 3CH 08-16 18:06
PROVIDERS: ADMIT Family Medicine; ATTEND Family Medicine
PROC: 5A1D70Z Performance of Urinary Filtration, Intermittent, Less than 6 Hours Per Day (ICD-10-PCS; principal; 2020-08-16)
PROC: 5A1D70Z Performance of Urinary Filtration, Intermittent, Less than 6 Hours Per Day (ICD-10-PCS; 2020-08-18)
DX: I13.2 Hypertensive heart and chronic kidney disease with heart failure and with stage 5 chronic kidney disease, or end stage renal disease (principal); J96.01 Acute respiratory failure with hypoxia; N18.6 End stage renal disease; I50.41 Acute combined systolic (congestive) and diastolic (congestive) heart failure; J18.9 Pneumonia, unspecified organism; D61.818 Other pancytopenia; J98.11 Atelectasis; J91.8 Pleural effusion in other conditions classified elsewhere; J81.1 Chronic pulmonary edema; E87.70 Fluid overload, unspecified; E11.649 Type 2 diabetes mellitus with hypoglycemia without coma; E11.22 Type 2 diabetes mellitus with diabetic chronic kidney disease; E11.51 Type 2 diabetes mellitus with diabetic peripheral angiopathy without gangrene; M81.0 Age-related osteoporosis without current pathological fracture; E78.00 Pure hypercholesterolemia, unspecified; Z20.822 Contact with and (suspected) exposure to COVID-19; E78.5 Hyperlipidemia, unspecified; R53.81 Other malaise; R77.8 Other specified abnormalities of plasma proteins; I25.10 Atherosclerotic heart disease of native coronary artery without angina pectoris; Z80.59 Family history of malignant neoplasm of other urinary tract organ; Z99.2 Dependence on renal dialysis; Z82.5 Family history of asthma and other chronic lower respiratory diseases; Z82.49 Family history of ischemic heart disease and other diseases of the circulatory system; Z82.3 Family history of stroke; Z86.16 Personal history of COVID-19; Z89.511 Acquired absence of right leg below knee; Z79.899 Other long term (current) drug therapy; Z79.82 Long term (current) use of aspirin; Z79.84 Long term (current) use of oral hypoglycemic drugs; Z79.01 Long term (current) use of anticoagulants; Z86.718 Personal history of other venous thrombosis and embolism; Z91.15 Patient's noncompliance with renal dialysis
CPT/HCPCS: 36415; 71045; 80048; 80053; 80061; 80074; 82550; 82948; 83605; 83690; 83880; 84145; 84484; 85025; 85610; 85730; 87426; 90935; 93005; 93306; 93356; G0378; J2060; J2405; J3490; J7070; Q0163; U0003

== ENCOUNTER 2021-02-05 19:37 | Inpatient (IN) | payer MEDICARE, OTHER ==
[~2021-02-05] VITALS: Ht 167.6 cm; Wt 65.2 kg
[~2021-02-05 19:37] MED LIST changes: -AMLO-258 PO; -APIX2.5T PO; -CALC-911 PO; -DEXA6TAB PO; -DOXA2TAB2 PO; -GABA100C PO; -HYDR-4154 PO; +LEVO250T43 PO; -METO-409 PO; +METO25 PO
[2021-02-05] MEDS ORDERED: 0.9%NACL 1000ML 1,000 ML IV ONE (20:30)
[2021-02-05] MEDS ORDERED: GABA-529 PO (20:31)
[2021-02-05] MEDS ORDERED: VALA100031 PO (20:32)
[2021-02-05] MEDS ORDERED: HYDR100T27 PO (20:33)
[2021-02-05 20:38] LABS: BASOPHILS % (AUTO) 0.3 % (0.0-5.0); EOSINOPHILS % (AUTO) 6.2 % (0.0-8.0); HEMATOCRIT 35.5 % (42-54); LYMPHOCYTES % (AUTO) 21.9 % (21.0-51.0); MEAN CORPUSCULAR HEMOGLOBIN 30.9 pg (27.0-33.0); MEAN CORPUSCULAR HGB CONC 33.8 g/dL (32.0-36.0); MEAN CORPUSCULAR VOLUME 91.5 fL (79-99); MONOCYTES % (AUTO) 8.9 % (3.0-13.0); NEUTROPHILS % (AUTO) 62.4 % (40.0-77.0); PLATELET COUNT (AUTO) 138 K/uL (130-400); RED BLOOD CELL COUNT(AUTO) 3.88 MIL/uL (4.50-6.20); RED CELL DISTRIBUTION WIDTH 15.4 % (11.0-15.5); WHITE BLOOD COUNT (AUTO) 2.9 K/uL (4.8-10.8)
[2021-02-05 20:57] LABS: CREATININE 4.8 mg/dL (0.5-1.5); POTASSIUM 4.4 mmol/L (3.5-5.1)
[2021-02-05 20:59] LABS: INR 1.07 (0.85-1.15); PROTHROMBIN TIME 11.6 SEC (9.6-11.6)
[2021-02-05 21:00] LABS: PARTIAL THROMBOPLASTIN TIME 30.5 SEC (26.3-35.5)
[2021-02-05 21:02] LABS: ALBUMIN 4.2 g/dL (3.5-5.0); BILIRUBIN,TOTAL 0.5 mg/dL (0.2-1.0); TOTAL PROTEIN, SERUM 8.1 g/dL (6.0-8.3)
[2021-02-05 21:08] LABS: B-TYPE NATRIURETIC PEPTIDE 1740 pg/mL (0-100)
[2021-02-05 21:30] LABS: BASOPHILS % (MANUAL) 1 % (0-2); EOSINOPHILS % (MANUAL) 9 % (1-6); LYMPHOCYTES % (MANUAL) 16 % (22-44); MAN.DIFF COMMENT-IMPRESSION MANUAL DIFFERENTIAL; MONOCYTES % (MANUAL) 5 % (2-9); REACTIVE LYMPHOCYTES 2 % (0-0); SEGMENTED NEUTROPHILS % 67 % (40-70)
[2021-02-05 23:49] LABS: APPEARANCE,URINE Cloudy (CLEAR); BILIRUBIN,URINE Negative (NEGATIVE); COLOR,URINE Dark Yellow (YELLOW); GLUCOSE, URINE (UA) Negative (NEGATIVE); KETONES,URINE Negative (NEGATIVE); LEUKOCYTE ESTERASE ,URINE Small (NEGATIVE); NITRATE,URINE Negative (NEGATIVE); OCCULT BLOOD,URINE Trace (NEGATIVE); PROTEIN,URINE >=1000 mg/dL (NEGATIVE); UROBILINOGEN,URINE 0.2 mg/dL (0.2-1.0)
[2021-02-05 23:57] LABS: WBC,URINE 0-1 /HPF (0-1)
[2021-02-05 23:58] LABS: BACTERIA,URINE Few /HPF (None Seen); SQUAMOUS EPITHELIAL CELL,UR 0-2 /HPF (0-2)
[2021-02-06] VITALS (15 sets, daily range): BP systolic 161–193; BP diastolic 78–98
[2021-02-06] MEDS ORDERED: MECL-226 PO ×2 (00:22→00:24)
[2021-02-06] MEDS ORDERED: AZITHROMYCIN 250 MG TABLET PO SCH (01:00)
[2021-02-06] MEDS ORDERED: CEFTRIAXONE 1G VIAL IVP ONE ×2 (01:00→03:30)
[2021-02-06] MEDS ORDERED: ONDANSETRON 4MG INJ IV PRN (04:30)
[2021-02-06 05:41] LABS: HEMOGLOBIN A1C 4.2 % (4.0-6.0)
[2021-02-06] MEDS: INSULIN HUMULIN R 100 UNIT/ML 3ML SQ SCH ×4 (07:30→20:43)
[2021-02-06] MEDS: LEVOTHYROXINE 25 MCG TABLET PO SCH (07:44)
[2021-02-06] MEDS: AMLODIPINE 5 MG TAB PO SCH (07:49)
[2021-02-06] MEDS: FAMOTIDINE 20MG TAB PO SCH (07:49)
[2021-02-06] MEDS: HEPARIN 5,000 UNIT VIAL SQ SCH ×3 (08:43→20:41)
[2021-02-06] MEDS: HYDRALAZINE 25MG TABLET PO SCH ×3 (08:52→20:41)
[2021-02-06] MEDS: CEFTRIAXONE 1G VIAL IV SCH (09:21)
[2021-02-06] MEDS: AZITHROMYCIN 500MG VIAL IVPB SCH (09:21)
[2021-02-06] MEDS: MINOXIDIL 2.5 MG TAB PO SCH ×2 (10:45→20:41)
[2021-02-06 11:50] LABS: ABG BASE EXCESS -2.8 mmol/L (-2.0-3.0); ABG HCO3 22.6 mmol/L (21.0-28.0); ABG OXYGEN SATURATION 96.8 % (95.0-99.0); ABG PCO2 41 mmHg (35-48)
[2021-02-06] MEDS: 0.9% NACL 250ML IVPB SCH (19:30)
[2021-02-07] VITALS (8 sets, daily range): BP systolic 123–191; BP diastolic 53–87
[2021-02-07] MEDS ORDERED: AZITHROMYCIN 500MG+NS 250ML 250 ML IV ONE (04:00)
[2021-02-07] MEDS: CEFTRIAXONE 1G VIAL IV SCH (04:05)
[2021-02-07] MEDS: 0.9% NACL 250ML IVPB SCH (04:05)
[2021-02-07] MEDS: AZITHROMYCIN 500MG VIAL IVPB SCH (04:30)
[2021-02-07] MEDS: LEVOTHYROXINE 25 MCG TABLET PO SCH (05:06)
[2021-02-07 05:22] LABS: BASOPHILS % (AUTO) 0.7 % (0.0-5.0); EOSINOPHILS % (AUTO) 3.4 % (0.0-8.0); HEMATOCRIT 36.8 % (42-54); LYMPHOCYTES % (AUTO) 15.5 % (21.0-51.0); MEAN CORPUSCULAR HEMOGLOBIN 30.8 pg (27.0-33.0); MEAN CORPUSCULAR VOLUME 90.6 fL (79-99); MONOCYTES % (AUTO) 11.5 % (3.0-13.0); NEUTROPHILS % (AUTO) 68.9 % (40.0-77.0); PLATELET COUNT (AUTO) 126 K/uL (130-400); RED BLOOD CELL COUNT(AUTO) 4.06 MIL/uL (4.50-6.20)
[2021-02-07 05:46] LABS: CREATININE 3.8 mg/dL (0.5-1.5); MAGNESIUM 1.9 mg/dL (1.80-2.40); PHOSPHORUS 4.3 mg/dL (2.5-4.9); POTASSIUM 3.4 mmol/L (3.5-5.1); THYROID STIMULATING HORMONE 7.06 uIU/mL (0.36-3.74)
[2021-02-07 06:06] LABS: BASOPHILS % (MANUAL) 1 % (0-2); EOSINOPHILS % (MANUAL) 2 % (1-6); LYMPHOCYTES % (MANUAL) 10 % (22-44); MAN.DIFF COMMENT-IMPRESSION MANUAL DIFFERENTIAL; MONOCYTES % (MANUAL) 9 % (2-9); SEGMENTED NEUTROPHILS % 78 % (40-70)
[2021-02-07 06:07] LABS: PLATELET MORPHOLOGY COMMENT SLIGHTLY DECREASED
[2021-02-07] MEDS: INSULIN HUMULIN R 100 UNIT/ML 3ML SQ SCH ×4 (06:38→20:27)
[2021-02-07 07:14] LABS: HEPATITIS B CORE IGM Negative (Negative); HEPATITIS Bs ANTIGEN SCREEN P Negative (Negative)
[2021-02-07] MEDS ORDERED: THIAMINE HCL 100 MG/ML 2ML VIAL IVP SCH (09:00)
[2021-02-07] MEDS ORDERED: Vitamin B Complex/Vit C/Folic Acid PO SCH (09:00)
[2021-02-07] MEDS ORDERED: DEXTROSE 50%-WATER 50 ML DISP.SYRIN IV SCH (11:00)
[2021-02-07] MEDS: Vitamin B Complex/Vit C/Folic Acid PO SCH (11:37)
[2021-02-07] MEDS: FAMOTIDINE 20MG TAB PO SCH (11:38)
[2021-02-07] MEDS: AMLODIPINE 5 MG TAB PO SCH (11:40)
[2021-02-07] MEDS: HYDRALAZINE 25MG TABLET PO SCH ×3 (11:43→20:26)
[2021-02-07] MEDS: THIAMINE HCL 100 MG/ML 2ML VIAL IVP SCH (11:48)
[2021-02-07] MEDS: MINOXIDIL 2.5 MG TAB PO SCH ×2 (11:54→20:26)
[2021-02-07] MEDS: HEPARIN 5,000 UNIT VIAL SQ SCH ×3 (12:01→21:22)
[2021-02-07] MEDS ORDERED: IOHEXOL 350 MG/ML 100ML INFUS..BTL IV ONE (16:15)
[2021-02-07] MEDS ORDERED: VANCOMYCIN PROTOCOL PER PHARMACY IV SCH (19:00)
[2021-02-07] MEDS: CEFEPIME HCL 1 GM VIAL IVP SCH (20:25)
[2021-02-07] MEDS: VANCOMYCIN 1G/250ML KIT 250 ML IV SCH (20:26)
[2021-02-08 03:55] VITALS: BP 125/40
[2021-02-08] MEDS ORDERED: AZITHROMYCIN 500MG+NS 250ML 250 ML IV ONE (05:28)
[2021-02-08] MEDS: 0.9% NACL 250ML IVPB SCH (05:29)
[2021-02-08] MEDS: LEVOTHYROXINE 25 MCG TABLET PO SCH (05:29)
[2021-02-08] MEDS: AZITHROMYCIN 500MG VIAL IVPB SCH (05:29)
[2021-02-08] MEDS: INSULIN HUMULIN R 100 UNIT/ML 3ML SQ SCH ×4 (05:52→20:02)
[2021-02-08] MEDS ORDERED: HYDROCODONE/ACETAMINOPHEN 5/325 MG TAB PO ONE (06:00)
[2021-02-08 06:39] LABS: BASOPHILS % (AUTO) 1.7 % (0.0-5.0); EOSINOPHILS % (AUTO) 3.7 % (0.0-8.0); HEMATOCRIT 35.8 % (42-54); LYMPHOCYTES % (AUTO) 21.1 % (21.0-51.0); MEAN CORPUSCULAR HEMOGLOBIN 30.9 pg (27.0-33.0); MEAN CORPUSCULAR HGB CONC 33.8 g/dL (32.0-36.0); MEAN CORPUSCULAR VOLUME 91.6 fL (79-99); MONOCYTES % (AUTO) 12.9 % (3.0-13.0); NEUTROPHILS % (AUTO) 60.3 % (40.0-77.0); PLATELET COUNT (AUTO) 127 K/uL (130-400); RED BLOOD CELL COUNT(AUTO) 3.91 MIL/uL (4.50-6.20); RED CELL DISTRIBUTION WIDTH 15.3 % (11.0-15.5); WHITE BLOOD COUNT (AUTO) 2.9 K/uL (4.8-10.8)
[2021-02-08 06:53] LABS: CREATININE 5.7 mg/dL (0.5-1.5); POTASSIUM 3.9 mmol/L (3.5-5.1)
[2021-02-08 07:18] LABS: EOSINOPHILS % (MANUAL) 4 % (1-6); LYMPHOCYTES % (MANUAL) 14 % (22-44); MONOCYTES % (MANUAL) 8 % (2-9); SEGMENTED NEUTROPHILS % 74 % (40-70)
[2021-02-08 07:19] LABS: MAN.DIFF COMMENT-IMPRESSION MANUAL DIFFERENTIAL; PLATELET MORPHOLOGY COMMENT SLIGHTLY DECREASED
[2021-02-08 08:00] VITALS: BP 148/70
[2021-02-08] MEDS: THIAMINE HCL 100 MG/ML 2ML VIAL IVP SCH (10:21)
[2021-02-08] MEDS: AMLODIPINE 5 MG TAB PO SCH (10:22)
[2021-02-08] MEDS: HYDRALAZINE 25MG TABLET PO SCH ×3 (10:22→20:02)
[2021-02-08] MEDS: Vitamin B Complex/Vit C/Folic Acid PO SCH (10:22)
[2021-02-08] MEDS: MINOXIDIL 2.5 MG TAB PO SCH ×2 (10:22→20:02)
[2021-02-08] MEDS: FAMOTIDINE 20MG TAB PO SCH (10:22)
[2021-02-08] MEDS: HEPARIN 5,000 UNIT VIAL SQ SCH ×3 (10:26→21:44)
[2021-02-08] MEDS ORDERED: 0.9% NACL 250ML IVPB SCH (11:30)
[2021-02-08] MEDS ORDERED: DOXYCYCLINE 100MG IVPB (VIAL) IVPB SCH (11:30)
[2021-02-08 11:41] VITALS: BP 109/47
[2021-02-08] MEDS: DOXYCYCLINE 100MG+NS 250ML 250 ML IV SCH ×2 (12:33→23:50)
[2021-02-08 13:09] LABS: HEPATITIS Bs ANTIGEN SCREEN P Negative (Negative)
[2021-02-08 15:57] VITALS: BP 154/57
[2021-02-08] MEDS: CEFEPIME HCL 1 GM VIAL IVP SCH (18:26)
[2021-02-08 20:04] VITALS: BP 135/66
[2021-02-08 23:18] VITALS: BP 134/64
[2021-02-09] VITALS (20 sets, daily range): BP systolic 115–164; BP diastolic 63–95
[2021-02-09 04:13] LABS: BILIRUBIN,TOTAL 0.5 mg/dL (0.2-1.0); CREATININE 7.2 mg/dL (0.5-1.5); PHOSPHORUS 6.4 mg/dL (2.5-4.9); POTASSIUM 3.9 mmol/L (3.5-5.1); TOTAL PROTEIN, SERUM 7.6 g/dL (6.0-8.3)
[2021-02-09] MEDS: AZITHROMYCIN 500MG VIAL IVPB SCH (04:30)
[2021-02-09] MEDS: 0.9% NACL 250ML IVPB SCH (04:30)
[2021-02-09] MEDS: INSULIN HUMULIN R 100 UNIT/ML 3ML SQ SCH ×4 (06:11→21:00)
[2021-02-09] MEDS: LEVOTHYROXINE 25 MCG TABLET PO SCH (06:11)
[2021-02-09] MEDS: MINOXIDIL 2.5 MG TAB PO SCH ×2 (09:00→21:45)
[2021-02-09] MEDS: HYDRALAZINE 25MG TABLET PO SCH ×3 (09:00→21:45)
[2021-02-09] MEDS: AMLODIPINE 5 MG TAB PO SCH (09:00)
[2021-02-09] MEDS: THIAMINE HCL 100 MG/ML 2ML VIAL IVP SCH (09:31)
[2021-02-09] MEDS: HEPARIN 5,000 UNIT VIAL SQ SCH ×3 (09:32→22:09)
[2021-02-09] MEDS: FAMOTIDINE 20MG TAB PO SCH (09:32)
[2021-02-09] MEDS: Vitamin B Complex/Vit C/Folic Acid PO SCH (09:33)
[2021-02-09] MEDS: 0.9%NACL 1000ML 1,000 ML IV PRN (10:50)
[2021-02-09] MEDS: DOXYCYCLINE 100MG+NS 250ML 250 ML IV SCH (14:39)
[2021-02-09] MEDS: CEFEPIME HCL 1 GM VIAL IVP SCH (19:33)
[2021-02-09] MEDS: VANCOMYCIN 1G/250ML KIT 250 ML IV SCH (21:44)
[2021-02-10] VITALS: BP 130/62
[2021-02-10] MEDS: DOXYCYCLINE 100MG+NS 250ML 250 ML IV SCH ×2 (00:38→12:37)
[2021-02-10 04:00] VITALS: BP 162/80
[2021-02-10 04:24] LABS: BASOPHILS % (AUTO) 0.9 % (0.0-5.0); EOSINOPHILS % (AUTO) 7.6 % (0.0-8.0); LYMPHOCYTES % (AUTO) 16.9 % (21.0-51.0); MEAN CORPUSCULAR HEMOGLOBIN 31.2 pg (27.0-33.0); MEAN CORPUSCULAR HGB CONC 34.1 g/dL (32.0-36.0); MEAN CORPUSCULAR VOLUME 91.5 fL (79-99); NEUTROPHILS % (AUTO) 64.4 % (40.0-77.0); PLATELET COUNT (AUTO) 150 K/uL (130-400); RED BLOOD CELL COUNT(AUTO) 4.26 MIL/uL (4.50-6.20); RED CELL DISTRIBUTION WIDTH 15.1 % (11.0-15.5); WHITE BLOOD COUNT (AUTO) 5.3 K/uL (4.8-10.8)
[2021-02-10 04:27] LABS: CREATININE 4.9 mg/dL (0.5-1.5); POTASSIUM 4.2 mmol/L (3.5-5.1)
[2021-02-10] MEDS ORDERED: AZITHROMYCIN 500MG+NS 250ML 250 ML IV ONE (05:19)
[2021-02-10] MEDS: AZITHROMYCIN 500MG VIAL IVPB SCH (05:23)
[2021-02-10] MEDS: 0.9% NACL 250ML IVPB SCH (05:23)
[2021-02-10] MEDS: LEVOTHYROXINE 25 MCG TABLET PO SCH (05:24)
[2021-02-10] MEDS: INSULIN HUMULIN R 100 UNIT/ML 3ML SQ SCH ×4 (07:30→20:53)
[2021-02-10 07:43] VITALS: BP 148/78
[2021-02-10] MEDS: MINOXIDIL 2.5 MG TAB PO SCH ×2 (09:27→21:08)
[2021-02-10] MEDS: AMLODIPINE 5 MG TAB PO SCH (09:27)
[2021-02-10] MEDS: HYDRALAZINE 25MG TABLET PO SCH ×3 (09:27→21:08)
[2021-02-10] MEDS: THIAMINE HCL 100 MG/ML 2ML VIAL IVP SCH (09:27)
[2021-02-10] MEDS: Vitamin B Complex/Vit C/Folic Acid PO SCH (09:27)
[2021-02-10] MEDS: FAMOTIDINE 20MG TAB PO SCH (09:27)
[2021-02-10] MEDS: HEPARIN 5,000 UNIT VIAL SQ SCH ×3 (09:28→21:15)
[2021-02-10 11:32] VITALS: BP 142/76
[2021-02-10 15:45] VITALS: BP 147/65
[2021-02-10] MEDS: ACETAMINOPHEN 325 MG TAB PO PRN (16:24)
[2021-02-10 19:00] VITALS: BP 169/83
[2021-02-11] VITALS (22 sets, daily range): BP systolic 142–181; BP diastolic 56–92
[2021-02-11] MEDS: DOXYCYCLINE 100MG+NS 250ML 250 ML IV SCH ×2 (01:29→16:40)
[2021-02-11] MEDS: AZITHROMYCIN 500MG VIAL IVPB SCH (04:00)
[2021-02-11] MEDS: 0.9% NACL 250ML IVPB SCH (04:01)
[2021-02-11 05:45] LABS: CREATININE 5.1 mg/dL (0.5-1.5); CRP QUANTITATIVE 11.9 mg/L (0.00-9.0); POTASSIUM 3.2 mmol/L (3.5-5.1)
[2021-02-11] MEDS: LEVOTHYROXINE 25 MCG TABLET PO SCH (06:15)
[2021-02-11 06:38] LABS: HEMATOCRIT 36.1 % (42-54); MEAN CORPUSCULAR HEMOGLOBIN 31.2 pg (27.0-33.0); MEAN CORPUSCULAR HGB CONC 34.1 g/dL (32.0-36.0); MEAN CORPUSCULAR VOLUME 91.6 fL (79-99); RED BLOOD CELL COUNT(AUTO) 3.94 MIL/uL (4.50-6.20); WHITE BLOOD COUNT (AUTO) 4.5 K/uL (4.8-10.8)
[2021-02-11] MEDS: INSULIN HUMULIN R 100 UNIT/ML 3ML SQ SCH ×4 (07:30→21:00)
[2021-02-11] MEDS: HYDRALAZINE 25MG TABLET PO SCH ×3 (09:20→21:08)
[2021-02-11] MEDS: THIAMINE HCL 100 MG/ML 2ML VIAL IVP SCH (09:21)
[2021-02-11] MEDS: MINOXIDIL 2.5 MG TAB PO SCH ×2 (09:21→21:03)
[2021-02-11] MEDS: AMLODIPINE 5 MG TAB PO SCH (09:21)
[2021-02-11] MEDS: Vitamin B Complex/Vit C/Folic Acid PO SCH (09:21)
[2021-02-11] MEDS: FAMOTIDINE 20MG TAB PO SCH (09:21)
[2021-02-11] MEDS: HEPARIN 5,000 UNIT VIAL SQ SCH ×3 (09:33→21:05)
[2021-02-11] MEDS: ACETAMINOPHEN 325 MG TAB PO PRN (09:34)
[2021-02-11] MEDS ORDERED: Vitamin B Complex/Vit C/Folic Acid PO SCH (10:00)
[2021-02-11] MEDS: CEFEPIME HCL 1 GM VIAL IVP SCH (16:40)
[2021-02-11] MEDS: VANCOMYCIN 1G/250ML KIT 250 ML IV SCH (21:03)
[2021-02-12] VITALS: BP 134/63
[2021-02-12] MEDS: DOXYCYCLINE 100MG+NS 250ML 250 ML IV SCH ×2 (00:37→15:32)
[2021-02-12 04:00] VITALS: BP 116/48
[2021-02-12] MEDS: INSULIN HUMULIN R 100 UNIT/ML 3ML SQ SCH ×4 (05:52→21:00)
[2021-02-12] MEDS: LEVOTHYROXINE 25 MCG TABLET PO SCH (06:36)
[2021-02-12 07:00] VITALS: BP 144/78
[2021-02-12] MEDS: FAMOTIDINE 20MG TAB PO SCH (09:00)
[2021-02-12] MEDS ORDERED: VANCOMYCIN 500MG+NS 100ML IVPB IV SCH (09:27)
[2021-02-12] MEDS ORDERED: 0.9%NACL 100ML 100 ML IV SCH (09:30)
[2021-02-12 11:00] VITALS: BP 152/73
[2021-02-12] MEDS: CEFEPIME HCL 1 GM VIAL IVP SCH (11:12)
[2021-02-12] MEDS: MINOXIDIL 2.5 MG TAB PO SCH ×2 (11:14→21:00)
[2021-02-12] MEDS: ASPIRIN 81MG CHEW TAB PO SCH (11:15)
[2021-02-12] MEDS: AMLODIPINE 5 MG TAB PO SCH (11:15)
[2021-02-12] MEDS: HYDRALAZINE 25MG TABLET PO SCH ×3 (11:15→21:00)
[2021-02-12] MEDS: Vitamin B Complex/Vit C/Folic Acid PO SCH (11:15)
[2021-02-12] MEDS: THIAMINE HCL 100 MG/ML 2ML VIAL IVP SCH (11:16)
[2021-02-12] MEDS: HEPARIN 5,000 UNIT VIAL SQ SCH ×3 (12:59→21:01)
[2021-02-12 16:00] VITALS: BP 138/65
[2021-02-12 21:43] VITALS: BP 144/72
[2021-02-13] VITALS (21 sets, daily range): BP systolic 129–175; BP diastolic 53–92
[2021-02-13 06:09] LABS: HEMATOCRIT 30.9 % (42-54); MEAN CORPUSCULAR HGB CONC 33.7 g/dL (32.0-36.0); PLATELET COUNT (AUTO) 108 K/uL (130-400); RED BLOOD CELL COUNT(AUTO) 3.36 MIL/uL (4.50-6.20); RED CELL DISTRIBUTION WIDTH 15.3 % (11.0-15.5); WHITE BLOOD COUNT (AUTO) 4.6 K/uL (4.8-10.8)
[2021-02-13] MEDS: LEVOTHYROXINE 25 MCG TABLET PO SCH (06:11)
[2021-02-13] MEDS: INSULIN HUMULIN R 100 UNIT/ML 3ML SQ SCH ×4 (06:12→21:00)
[2021-02-13 06:24] LABS: CREATININE 5.6 mg/dL (0.5-1.5); CRP QUANTITATIVE 13.2 mg/L (0.00-9.0); PHOSPHORUS 5.8 mg/dL (2.5-4.9); POTASSIUM 5.5 mmol/L (3.5-5.1)
[2021-02-13 07:16] LABS: EOSINOPHILS % (MANUAL) 12 % (1-6); LYMPHOCYTES % (MANUAL) 18 % (22-44); MAN.DIFF COMMENT-IMPRESSION MANUAL DIFFERENTIAL; MONOCYTES % (MANUAL) 3 % (2-9); SEGMENTED NEUTROPHILS % 67 % (40-70)
[2021-02-13 07:17] LABS: PLATELET MORPHOLOGY COMMENT SLIGHTLY DECREASED
[2021-02-13] MEDS: HYDRALAZINE 25MG TABLET PO SCH ×3 (09:00→21:37)
[2021-02-13] MEDS: HEPARIN 5,000 UNIT VIAL SQ SCH ×3 (09:00→21:44)
[2021-02-13] MEDS: MINOXIDIL 2.5 MG TAB PO SCH ×2 (09:00→21:37)
[2021-02-13] MEDS: THIAMINE HCL 100 MG/ML 2ML VIAL IVP SCH (09:00)
[2021-02-13] MEDS: 0.9%NACL 1000ML 1,000 ML IV PRN ×2 (11:27→11:28)
[2021-02-13] MEDS: Vitamin B Complex/Vit C/Folic Acid PO SCH (13:03)
[2021-02-13] MEDS: AMLODIPINE 5 MG TAB PO SCH (13:03)
[2021-02-13] MEDS: ASPIRIN 81MG CHEW TAB PO SCH (13:03)
[2021-02-13] MEDS: FAMOTIDINE 20MG TAB PO SCH (13:03)
[2021-02-13] MEDS: DOXYCYCLINE 100MG+NS 250ML 250 ML IV SCH ×2 (13:04)
[2021-02-13] MEDS: CEFEPIME HCL 1 GM VIAL IVP SCH (13:04)
[2021-02-13] MEDS: VANCOMYCIN 500MG+NS 100ML IVPB IV SCH (15:12)
[2021-02-13] MEDS ORDERED: 0.9%NACL 100ML 100 ML IV SCH (16:00)
[2021-02-14] VITALS (7 sets, daily range): BP systolic 133–147; BP diastolic 53–74
[2021-02-14] MEDS: DOXYCYCLINE 100MG+NS 250ML 250 ML IV SCH ×2 (00:15→11:46)
[2021-02-14] MEDS: 0.9% NACL 250ML IVPB SCH ×2 (00:15→04:30)
[2021-02-14] MEDS: LEVOTHYROXINE 25 MCG TABLET PO SCH (06:12)
[2021-02-14] MEDS: INSULIN HUMULIN R 100 UNIT/ML 3ML SQ SCH ×4 (06:13→21:00)
[2021-02-14] MEDS: MINOXIDIL 2.5 MG TAB PO SCH ×2 (10:14→21:33)
[2021-02-14] MEDS: CEFEPIME HCL 1 GM VIAL IVP SCH (10:15)
[2021-02-14] MEDS: AMLODIPINE 5 MG TAB PO SCH (10:15)
[2021-02-14] MEDS: ASPIRIN 81MG CHEW TAB PO SCH (10:15)
[2021-02-14] MEDS: FAMOTIDINE 20MG TAB PO SCH (10:15)
[2021-02-14] MEDS: Vitamin B Complex/Vit C/Folic Acid PO SCH (10:16)
[2021-02-14] MEDS: THIAMINE HCL 100 MG/ML 2ML VIAL IVP SCH (10:16)
[2021-02-14] MEDS: HYDRALAZINE 20MG/ML VIAL IV PRN (10:21)
[2021-02-14] MEDS: HEPARIN 5,000 UNIT VIAL SQ SCH ×3 (10:35→21:34)
[2021-02-14] MEDS: HYDRALAZINE 25MG TABLET PO SCH ×3 (10:38→21:33)
[2021-02-15] MEDS: 0.9% NACL 250ML IVPB SCH (00:45)
[2021-02-15] MEDS: DOXYCYCLINE 100MG+NS 250ML 250 ML IV SCH ×3 (00:45→23:26)
[2021-02-15 04:00] VITALS: BP 142/61
[2021-02-15 05:58] LABS: BASOPHILS % (AUTO) 1.2 % (0.0-5.0); EOSINOPHILS % (AUTO) 9.2 % (0.0-8.0); HEMATOCRIT 30.1 % (42-54); LYMPHOCYTES % (AUTO) 20.6 % (21.0-51.0); MEAN CORPUSCULAR HEMOGLOBIN 31.3 pg (27.0-33.0); MEAN CORPUSCULAR HGB CONC 33.6 g/dL (32.0-36.0); MEAN CORPUSCULAR VOLUME 93.2 fL (79-99); MONOCYTES % (AUTO) 9.7 % (3.0-13.0); NEUTROPHILS % (AUTO) 59.1 % (40.0-77.0); PLATELET COUNT (AUTO) 107 K/uL (130-400); RED BLOOD CELL COUNT(AUTO) 3.23 MIL/uL (4.50-6.20); RED CELL DISTRIBUTION WIDTH 15.2 % (11.0-15.5)
[2021-02-15 06:25] LABS: CREATININE 5.6 mg/dL (0.5-1.5); POTASSIUM 4.7 mmol/L (3.5-5.1)
[2021-02-15] MEDS: INSULIN HUMULIN R 100 UNIT/ML 3ML SQ SCH ×4 (07:14→21:00)
[2021-02-15] MEDS: LEVOTHYROXINE 25 MCG TABLET PO SCH (07:15)
[2021-02-15 08:00] VITALS: BP 176/74
[2021-02-15] MEDS: CEFEPIME HCL 1 GM VIAL IVP SCH (10:03)
[2021-02-15] MEDS: FAMOTIDINE 20MG TAB PO SCH (10:03)
[2021-02-15] MEDS: Vitamin B Complex/Vit C/Folic Acid PO SCH (10:04)
[2021-02-15] MEDS: ASPIRIN 81MG CHEW TAB PO SCH (10:04)
[2021-02-15] MEDS: AMLODIPINE 5 MG TAB PO SCH (10:05)
[2021-02-15] MEDS: THIAMINE HCL 100 MG/ML 2ML VIAL IVP SCH (10:05)
[2021-02-15] MEDS: HYDRALAZINE 25MG TABLET PO SCH ×3 (10:05→21:13)
[2021-02-15] MEDS: MINOXIDIL 2.5 MG TAB PO SCH ×2 (10:06→21:14)
[2021-02-15] MEDS: HEPARIN 5,000 UNIT VIAL SQ SCH ×3 (10:28→21:18)
[2021-02-15 12:00] VITALS: BP 122/54
[2021-02-15 16:00] VITALS: BP 146/63
[2021-02-15] MEDS: HYDRALAZINE 20MG/ML VIAL IV PRN (17:16)
[2021-02-15] MEDS: VANCOMYCIN 500MG+NS 100ML IVPB IV SCH (17:19)
[2021-02-15 20:00] VITALS: BP 148/73
[2021-02-16] VITALS (20 sets, daily range): BP systolic 135–179; BP diastolic 55–92
[2021-02-16] MEDS: 0.9% NACL 250ML IVPB SCH (04:02)
[2021-02-16] MEDS: LEVOTHYROXINE 25 MCG TABLET PO SCH (05:36)
[2021-02-16] MEDS: INSULIN HUMULIN R 100 UNIT/ML 3ML SQ SCH ×4 (06:49→21:00)
[2021-02-16 08:05] LABS: CREATININE 6.9 mg/dL (0.5-1.5); POTASSIUM 5.4 mmol/L (3.5-5.1)
[2021-02-16 08:10] LABS: HEMATOCRIT 28.8 % (42-54); MEAN CORPUSCULAR HEMOGLOBIN 31.4 pg (27.0-33.0); MEAN CORPUSCULAR HGB CONC 34.4 g/dL (32.0-36.0); MEAN CORPUSCULAR VOLUME 91.4 fL (79-99); PLATELET COUNT (AUTO) 110 K/uL (130-400); RED BLOOD CELL COUNT(AUTO) 3.15 MIL/uL (4.50-6.20); RED CELL DISTRIBUTION WIDTH 15.2 % (11.0-15.5); WHITE BLOOD COUNT (AUTO) 4.2 K/uL (4.8-10.8)
[2021-02-16 08:50] LABS: EOSINOPHILS % (MANUAL) 4 % (1-6); LYMPHOCYTES % (MANUAL) 15 % (22-44); MAN.DIFF COMMENT-IMPRESSION MANUAL DIFFERENTIAL; MONOCYTES % (MANUAL) 5 % (2-9); SEGMENTED NEUTROPHILS % 76 % (40-70)
[2021-02-16 08:51] LABS: PLATELET MORPHOLOGY COMMENT SLIGHTLY DECREASED
[2021-02-16] MEDS: AMLODIPINE 5 MG TAB PO SCH (09:00)
[2021-02-16] MEDS: HYDRALAZINE 25MG TABLET PO SCH ×3 (09:00→20:00)
[2021-02-16] MEDS: HEPARIN 5,000 UNIT VIAL SQ SCH ×3 (09:00→20:03)
[2021-02-16] MEDS: MINOXIDIL 2.5 MG TAB PO SCH ×2 (09:00→20:00)
[2021-02-16] MEDS: CEFEPIME HCL 1 GM VIAL IVP SCH (12:08)
[2021-02-16] MEDS: ASPIRIN 81MG CHEW TAB PO SCH (12:12)
[2021-02-16] MEDS: THIAMINE HCL 100 MG/ML 2ML VIAL IVP SCH (12:12)
[2021-02-16] MEDS: FAMOTIDINE 20MG TAB PO SCH (12:13)
[2021-02-16] MEDS: Vitamin B Complex/Vit C/Folic Acid PO SCH (12:13)
[2021-02-16] MEDS: DOXYCYCLINE 100MG+NS 250ML 250 ML IV SCH ×2 (14:00→23:06)
[2021-02-16] MEDS ORDERED: VANCOMYCIN 500MG+NS 100ML IVPB IV SCH (16:00)
[2021-02-17] VITALS: BP 146/90
[2021-02-17] MEDS: 0.9% NACL 250ML IVPB SCH (03:43)
[2021-02-17 04:00] VITALS: BP 148/72
[2021-02-17] MEDS: LEVOTHYROXINE 25 MCG TABLET PO SCH (05:31)
[2021-02-17] MEDS ORDERED: DEXTROSE 50%-WATER 50 ML DISP.SYRIN IV ONE (05:52)
[2021-02-17] MEDS: INSULIN HUMULIN R 100 UNIT/ML 3ML SQ SCH ×2 (05:57→11:30)
[2021-02-17 07:00] VITALS: BP 132/59
[2021-02-17] MEDS: THIAMINE HCL 100 MG/ML 2ML VIAL IVP SCH (09:31)
[2021-02-17] MEDS: HYDRALAZINE 25MG TABLET PO SCH ×2 (09:32→15:03)
[2021-02-17] MEDS: MINOXIDIL 2.5 MG TAB PO SCH (09:32)
[2021-02-17] MEDS: ASPIRIN 81MG CHEW TAB PO SCH (09:32)
[2021-02-17] MEDS: Vitamin B Complex/Vit C/Folic Acid PO SCH (09:32)
[2021-02-17] MEDS: FAMOTIDINE 20MG TAB PO SCH (09:33)
[2021-02-17] MEDS: AMLODIPINE 5 MG TAB PO SCH (09:33)
[2021-02-17] MEDS: HEPARIN 5,000 UNIT VIAL SQ SCH ×2 (09:39→14:49)
[2021-02-17 11:00] VITALS: BP 140/60
[2021-02-17] MEDS: CEFEPIME HCL 1 GM VIAL IVP SCH (11:00)
== END 2021-02-17 16:38 | DRG 193 ==
LOC: EDH 19:37 → EDHIP 02-06 04:13 → 4DH 02-07 00:34 → 4CH 02-08 17:38
PROVIDERS: ADMIT Internal Medicine; ATTEND Internal Medicine
PROC: 5A1D70Z Performance of Urinary Filtration, Intermittent, Less than 6 Hours Per Day (ICD-10-PCS; principal; 2021-02-06)
PROC: 5A1D70Z Performance of Urinary Filtration, Intermittent, Less than 6 Hours Per Day (ICD-10-PCS; 2021-02-09)
PROC: 5A1D70Z Performance of Urinary Filtration, Intermittent, Less than 6 Hours Per Day (ICD-10-PCS; 2021-02-11)
PROC: 5A1D70Z Performance of Urinary Filtration, Intermittent, Less than 6 Hours Per Day (ICD-10-PCS; 2021-02-13)
PROC: 5A1D70Z Performance of Urinary Filtration, Intermittent, Less than 6 Hours Per Day (ICD-10-PCS; 2021-02-16)
DX: J18.9 Pneumonia, unspecified organism (principal); I50.33 Acute on chronic diastolic (congestive) heart failure; J96.01 Acute respiratory failure with hypoxia; N18.6 End stage renal disease; G92.9 Unspecified toxic encephalopathy; H70.001 Acute mastoiditis without complications, right ear; J44.0 Chronic obstructive pulmonary disease with (acute) lower respiratory infection; I13.2 Hypertensive heart and chronic kidney disease with heart failure and with stage 5 chronic kidney disease, or end stage renal disease; E87.1 Hypo-osmolality and hyponatremia; E11.22 Type 2 diabetes mellitus with diabetic chronic kidney disease; D70.9 Neutropenia, unspecified; Z20.822 Contact with and (suspected) exposure to COVID-19; F32.9 Major depressive disorder, single episode, unspecified; B02.9 Zoster without complications; D63.1 Anemia in chronic kidney disease; E03.9 Hypothyroidism, unspecified; E11.51 Type 2 diabetes mellitus with diabetic peripheral angiopathy without gangrene; E78.00 Pure hypercholesterolemia, unspecified; E78.5 Hyperlipidemia, unspecified; I25.10 Atherosclerotic heart disease of native coronary artery without angina pectoris; E87.5 Hyperkalemia; E87.6 Hypokalemia; F80.9 Developmental disorder of speech and language, unspecified; G70.00 Myasthenia gravis without (acute) exacerbation; F32.A Depression, unspecified; I16.0 Hypertensive urgency; K74.60 Unspecified cirrhosis of liver; M81.0 Age-related osteoporosis without current pathological fracture; Z79.899 Other long term (current) drug therapy; Z99.2 Dependence on renal dialysis; Z89.511 Acquired absence of right leg below knee; Z88.8 Allergy status to other drugs, medicaments and biological substances; Z82.3 Family history of stroke; Z80.9 Family history of malignant neoplasm, unspecified; Z82.49 Family history of ischemic heart disease and other diseases of the circulatory system; Z82.5 Family history of asthma and other chronic lower respiratory diseases
CPT/HCPCS: 36415; 36600; 70450; 70496; 70498; 70544; 70551; 71045; 71250; 78306; 80048; 80053; 80074; 80202; 81001; 82140; 82550; 82803; 82948; 83036; 83519; 83605; 83735; 83880; 84100; 84145; 84238; 84443; 84484; 85025; 85027; 85610; 85651; 85730; 86140; 86704; 86706; 87040; 87340; 87635; 90935; 92610; 93005; 97039; A9503; C9803; G0378; J0360; J0456; J0692; J0696; J1644; J3370; J3411; J3490; J7030; J7050; J7070; Q9967

== ENCOUNTER 2021-03-29 00:35 | Inpatient (IN) | payer OTHER ==
[~2021-03-29] VITALS: Ht 167.6 cm; Wt 63.7 kg
[~2021-03-29 00:35] MED LIST changes: -CITA10TA13 PO; -LEVO250T43 PO; -METO25 PO; -MINO2.5 PO; -PANT40TA PO; -SIMV10TA97 PO
[2021-03-29] MEDS ORDERED: PANTOPRAZOLE 40 MG/VIAL ONE (01:20)
[2021-03-29] MEDS ORDERED: OCTREOTIDE ACETATE 200 MCG/ML 5 ML VIAL ONE (01:23)
[2021-03-29] MEDS ORDERED: CEFTRIAXONE 1G VIAL ONE (01:30)
[2021-03-29] MEDS ORDERED: PANTOPRAZOLE 40 MG/VIAL IVP ONE (01:30)
[2021-03-29] MEDS ORDERED: PANTOPRAZOLE 40MG INJ 80 MG in 0.9%NACL 100ML 100 ML IV SCH ×2 (01:30→09:00)
[2021-03-29] MEDS ORDERED: OCTREOTIDE ACETATE 100 MCG/ML AMP IVP ONE (01:30)
[2021-03-29] MEDS ORDERED: CEFTRIAXONE 1G VIAL 1 GM in 0.9%NACL 50ML 50 ML IV ONE (01:30)
[2021-03-29] MEDS ORDERED: OCTREOTIDE ACETATE 1,000 MCG in DEXTROSE 5%-WATER 195 ML IV SCH (01:30)
[2021-03-29 01:34] LABS: EOSINOPHILS % (AUTO) 3.6 % (0.0-8.0); HEMATOCRIT 29.8 % (42-54); LYMPHOCYTES % (AUTO) 17.5 % (21.0-51.0); MEAN CORPUSCULAR HEMOGLOBIN 32.1 pg (27.0-33.0); MEAN CORPUSCULAR HGB CONC 33.2 g/dL (32.0-36.0); MEAN CORPUSCULAR VOLUME 96.8 fL (79-99); MONOCYTES % (AUTO) 8.4 % (3.0-13.0); NEUTROPHILS % (AUTO) 69.3 % (40.0-77.0); PLATELET COUNT (AUTO) 146 K/uL (130-400); RED BLOOD CELL COUNT(AUTO) 3.08 MIL/uL (4.50-6.20); RED CELL DISTRIBUTION WIDTH 15.3 % (11.0-15.5); WHITE BLOOD COUNT (AUTO) 4.2 K/uL (4.8-10.8)
[2021-03-29 01:44] LABS: CREATININE 5.8 mg/dL (0.5-1.5); POTASSIUM 5.2 mmol/L (3.5-5.1)
[2021-03-29 01:45] LABS: INR 1.22 (0.85-1.15); PROTHROMBIN TIME 13.1 SEC (9.6-11.6)
[2021-03-29 01:46] LABS: PARTIAL THROMBOPLASTIN TIME 34.2 SEC (26.3-35.5)
[2021-03-29 01:48] LABS: ALBUMIN 4.2 g/dL (3.5-5.0); BILIRUBIN,TOTAL 0.5 mg/dL (0.2-1.0); TOTAL PROTEIN, SERUM 8.1 g/dL (6.0-8.3)
[2021-03-29] MEDS ORDERED: LORAZEPAM 2 MG/ML 1 ML VIAL IVP ONE ×2 (02:30→22:00)
[2021-03-29] MEDS ORDERED: ONDANSETRON 4MG INJ IV PRN (03:00)
[2021-03-29] MEDS ORDERED: OCTREOTIDE ACETATE 1,250 MCG in 0.9% NACL 250ML 250 ML IV SCH (03:00)
[2021-03-29] MEDS ORDERED: 0.9%NACL 1000ML 1,000 ML IV SCH (03:00)
[2021-03-29 03:29] LABS: MAGNESIUM 2.2 mg/dL (1.80-2.40); PHOSPHORUS 4.4 mg/dL (2.5-4.9)
[2021-03-29] MEDS: HYDRALAZINE 20MG/ML VIAL IV PRN (03:38)
[2021-03-29 04:06] VITALS: BP 179/71
[2021-03-29 08:00] VITALS: BP 166/74
[2021-03-29 09:13] LABS: HEMATOCRIT 20.7 % (42-54)
[2021-03-29] MEDS: AMLODIPINE 5 MG TAB PO SCH ×2 (10:00→15:01)
[2021-03-29] MEDS: HYDRALAZINE 25MG TABLET PO SCH ×3 (10:00→21:23)
[2021-03-29] MEDS: CEFTRIAXONE 1G VIAL IVP SCH (10:33)
[2021-03-29 11:57] VITALS: BP 176/86
[2021-03-29 13:38] LABS: HEMATOCRIT 19.4 % (42-54)
[2021-03-29] MEDS ORDERED: 0.9% NACL 250ML 250 ML ONE (15:19)
[2021-03-29 16:14] VITALS: BP 178/78
[2021-03-29] MEDS ORDERED: LACTULOSE 20 GM/30 ML UDCUP PO SCH (17:00)
[2021-03-29] MEDS ORDERED: PEG 3350/NA SULF,BICARB,CL/KCL 4000 ML SOLN PO SCH (17:30)
[2021-03-29] MEDS ORDERED: MAGNESIUM CITRATE 296 ML SOLUTION PO SCH (17:30)
[2021-03-29 20:00] VITALS: BP 160/75
[2021-03-29 20:28] LABS: HEMATOCRIT 20.9 % (42-54)
[2021-03-30] VITALS (30 sets, daily range): BP systolic 131–198; BP diastolic 68–114
[2021-03-30] MEDS ORDERED: PANTOPRAZOLE 40 MG/VIAL ONE (01:15)
[2021-03-30 04:22] LABS: BASOPHILS % (AUTO) 0.6 % (0.0-5.0); EOSINOPHILS % (AUTO) 4.1 % (0.0-8.0); HEMATOCRIT 22.6 % (42-54); LYMPHOCYTES % (AUTO) 14.5 % (21.0-51.0); MEAN CORPUSCULAR HEMOGLOBIN 31.3 pg (27.0-33.0); MEAN CORPUSCULAR HGB CONC 34.1 g/dL (32.0-36.0); MEAN CORPUSCULAR VOLUME 91.9 fL (79-99); MONOCYTES % (AUTO) 7.3 % (3.0-13.0); NEUTROPHILS % (AUTO) 73.1 % (40.0-77.0); PLATELET COUNT (AUTO) 119 K/uL (130-400); RED BLOOD CELL COUNT(AUTO) 2.46 MIL/uL (4.50-6.20); WHITE BLOOD COUNT (AUTO) 5.3 K/uL (4.8-10.8)
[2021-03-30 04:41] LABS: CREATININE 6.9 mg/dL (0.5-1.5); PHOSPHORUS 6.4 mg/dL (2.5-4.9); POTASSIUM 5.5 mmol/L (3.5-5.1)
[2021-03-30] MEDS: HYDRALAZINE 25MG TABLET PO SCH ×3 (09:00→21:06)
[2021-03-30] MEDS ORDERED: ALPRAZOLAM 0.25 MG TABLET PO SCH (10:30)
[2021-03-30] MEDS ORDERED: FENTANYL CITRATE PF 50 MCG/1 ML 2ML VIAL ONE (11:28)
[2021-03-30] MEDS ORDERED: MIDAZOLAM HCL 1 MG/ML 2ML VIAL ONE (11:28)
[2021-03-30] MEDS: CEFTRIAXONE 1G VIAL IVP SCH (17:00)
[2021-03-30] MEDS ORDERED: ALPRAZOLAM 0.5 MG TABLET PO ONE (20:30)
[2021-03-31] VITALS (7 sets, daily range): BP systolic 134–205; BP diastolic 75–98
[2021-03-31 04:10] LABS: HEPATITIS B CORE IGM Negative (Negative); HEPATITIS Bs ANTIGEN SCREEN P Negative (Negative)
[2021-03-31] MEDS: HYDRALAZINE 20MG/ML VIAL IV PRN (05:06)
[2021-03-31 05:46] LABS: EOSINOPHILS % (AUTO) 4.3 % (0.0-8.0); HEMATOCRIT 22.1 % (42-54); LYMPHOCYTES % (AUTO) 12.2 % (21.0-51.0); MEAN CORPUSCULAR HEMOGLOBIN 31.4 pg (27.0-33.0); MEAN CORPUSCULAR HGB CONC 33.9 g/dL (32.0-36.0); MEAN CORPUSCULAR VOLUME 92.5 fL (79-99); MONOCYTES % (AUTO) 7.3 % (3.0-13.0); NEUTROPHILS % (AUTO) 74.8 % (40.0-77.0); PLATELET COUNT (AUTO) 119 K/uL (130-400); RED BLOOD CELL COUNT(AUTO) 2.39 MIL/uL (4.50-6.20); RED CELL DISTRIBUTION WIDTH 15.9 % (11.0-15.5); WHITE BLOOD COUNT (AUTO) 4.9 K/uL (4.8-10.8)
[2021-03-31 05:51] LABS: CREATININE 4.7 mg/dL (0.5-1.5); POTASSIUM 3.9 mmol/L (3.5-5.1)
[2021-03-31] MEDS ORDERED: COMPOUND IV MISC 1 EACH IVSOLN MISC PRN (08:30)
[2021-03-31] MEDS: AMLODIPINE 5 MG TAB PO SCH (08:52)
[2021-03-31] MEDS: CEFTRIAXONE 1G VIAL IVP SCH (08:52)
[2021-03-31] MEDS: HYDRALAZINE 25MG TABLET PO SCH ×2 (08:52→14:00)
[2021-03-31] MEDS ORDERED: AMLODIPINE 5 MG TAB PO SCH (11:36)
[2021-03-31] MEDS ORDERED: HYDRALAZINE 25MG TABLET ONE (20:39)
[2021-03-31] MEDS: MINOXIDIL 2.5 MG TAB PO SCH (20:56)
[2021-03-31] MEDS ORDERED: HYDRALAZINE 25MG TABLET PO SCH ×2 (22:00)
[2021-04-01] VITALS (20 sets, daily range): BP systolic 144–191; BP diastolic 71–97
[2021-04-01 06:20] LABS: BASOPHILS % (AUTO) 0.6 % (0.0-5.0); EOSINOPHILS % (AUTO) 3.7 % (0.0-8.0); HEMATOCRIT 26.6 % (42-54); LYMPHOCYTES % (AUTO) 17.1 % (21.0-51.0); MEAN CORPUSCULAR HEMOGLOBIN 30.9 pg (27.0-33.0); MEAN CORPUSCULAR HGB CONC 33.5 g/dL (32.0-36.0); MEAN CORPUSCULAR VOLUME 92.4 fL (79-99); MONOCYTES % (AUTO) 6.4 % (3.0-13.0); NEUTROPHILS % (AUTO) 72.1 % (40.0-77.0); PLATELET COUNT (AUTO) 186 K/uL (130-400); RED BLOOD CELL COUNT(AUTO) 2.88 MIL/uL (4.50-6.20); RED CELL DISTRIBUTION WIDTH 15.9 % (11.0-15.5)
[2021-04-01 06:57] LABS: CREATININE 6.6 mg/dL (0.5-1.5); POTASSIUM 4.5 mmol/L (3.5-5.1)
[2021-04-01] MEDS: MINOXIDIL 2.5 MG TAB PO SCH (08:13)
[2021-04-01 08:15] LABS: HEPATITIS Bs ANTIGEN SCREEN P Negative (Negative)
[2021-04-01] MEDS ORDERED: PANT40TA54 PO (08:31)
[2021-04-01] MEDS ORDERED: MINO2.5T3 PO (08:31)
[2021-04-01] MEDS ORDERED: EPOETIN ALFA-EPBX (ESRD) 10,000 UNIT/ML VIAL SQ SCH (10:30)
== END 2021-04-01 18:07 | disposition home or self-care (01) | DRG 377 ==
LOC: EDH 00:35 → EDHIP 02:32 → 4BH 03:18
PROVIDERS: ADMIT Hospitalist; ATTEND Hospitalist
PROC: 30233N1 Transfusion of Nonautologous Red Blood Cells into Peripheral Vein, Percutaneous Approach (ICD-10-PCS; principal; 2021-03-29)
PROC: 5A1D70Z Performance of Urinary Filtration, Intermittent, Less than 6 Hours Per Day (ICD-10-PCS; 2021-03-30)
PROC: 0DB38ZX Excision of Lower Esophagus, Via Natural or Artificial Opening Endoscopic, Diagnostic (ICD-10-PCS; 2021-03-30)
PROC: 0DB78ZX Excision of Stomach, Pylorus, Via Natural or Artificial Opening Endoscopic, Diagnostic (ICD-10-PCS; 2021-03-30)
PROC: 0DB68ZX Excision of Stomach, Via Natural or Artificial Opening Endoscopic, Diagnostic (ICD-10-PCS; 2021-03-30)
PROC: 0DBM8ZZ Excision of Descending Colon, Via Natural or Artificial Opening Endoscopic (ICD-10-PCS; 2021-03-30)
PROC: 5A1D70Z Performance of Urinary Filtration, Intermittent, Less than 6 Hours Per Day (ICD-10-PCS; 2021-04-01)
DX: K29.01 Acute gastritis with bleeding (principal); N18.6 End stage renal disease; I12.0 Hypertensive chronic kidney disease with stage 5 chronic kidney disease or end stage renal disease; R18.8 Other ascites; D62 Acute posthemorrhagic anemia; K63.5 Polyp of colon; K74.60 Unspecified cirrhosis of liver; E11.22 Type 2 diabetes mellitus with diabetic chronic kidney disease; Z20.822 Contact with and (suspected) exposure to COVID-19; E78.00 Pure hypercholesterolemia, unspecified; E11.51 Type 2 diabetes mellitus with diabetic peripheral angiopathy without gangrene; D64.9 Anemia, unspecified; E78.5 Hyperlipidemia, unspecified; K21.00 Gastro-esophageal reflux disease with esophagitis, without bleeding; K64.0 First degree hemorrhoids; K57.30 Diverticulosis of large intestine without perforation or abscess without bleeding; E87.5 Hyperkalemia; I25.10 Atherosclerotic heart disease of native coronary artery without angina pectoris; Z99.2 Dependence on renal dialysis; Z89.511 Acquired absence of right leg below knee; Z88.8 Allergy status to other drugs, medicaments and biological substances; Z86.73 Personal history of transient ischemic attack (TIA), and cerebral infarction without residual deficits; Z83.3 Family history of diabetes mellitus; Z82.3 Family history of stroke; Z83.6 Family history of other diseases of the respiratory system; Z80.9 Family history of malignant neoplasm, unspecified; Z82.49 Family history of ischemic heart disease and other diseases of the circulatory system
CPT/HCPCS: 36415; 43239; 45384; 80048; 80053; 80074; 82140; 82270; 82330; 82948; 83735; 84100; 85014; 85018; 85025; 85610; 85730; 86704; 86706; 86850; 86900; 86901; 86923; 87340; 87635; 88305; 88342; 90935; 93005; 94760; 99152; 99153; A4606; C9113; G0378; J0360; J0696; J2060; J2250; J2354; J3010; J7030; J7050; J7060; P9016

== ENCOUNTER 2021-06-04 13:41 | Emergency (ER) | payer MEDICARE, OTHER ==
[~2021-06-04] VITALS: Ht 180.3 cm; Wt 68.0 kg
[~2021-06-04 13:41] MED LIST changes: +MINO2.5T3 PO; +PANT40TA54 PO
[2021-06-04] MEDS ORDERED: HYDROCODONE/ACETAMINOPHEN 10/325 MG TAB PO ONE (14:30)
[2021-06-04 15:10] LABS: BASOPHILS % (AUTO) 0.3 % (0.0-5.0); EOSINOPHILS % (AUTO) 0.9 % (0.0-8.0); HEMATOCRIT 32.2 % (42-54); LYMPHOCYTES % (AUTO) 12.5 % (21.0-51.0); MEAN CORPUSCULAR HEMOGLOBIN 31.7 pg (27.0-33.0); MEAN CORPUSCULAR HGB CONC 32.6 g/dL (32.0-36.0); MEAN CORPUSCULAR VOLUME 97.3 fL (79-99); MONOCYTES % (AUTO) 8.7 % (3.0-13.0); NEUTROPHILS % (AUTO) 77.3 % (40.0-77.0); PLATELET COUNT (AUTO) 115 K/uL (130-400); RED BLOOD CELL COUNT(AUTO) 3.31 MIL/uL (4.50-6.20); RED CELL DISTRIBUTION WIDTH 14.6 % (11.0-15.5); WHITE BLOOD COUNT (AUTO) 3.4 K/uL (4.8-10.8)
[2021-06-04 15:18] LABS: CREATININE 6.1 mg/dL (0.5-1.5); POTASSIUM 4.9 mmol/L (3.5-5.1)
[2021-06-04 15:29] LABS: ALBUMIN 4.1 g/dL (3.5-5.0); BILIRUBIN,TOTAL 0.6 mg/dL (0.2-1.0); CRP QUANTITATIVE 75.9 mg/L (0.00-9.0); TOTAL PROTEIN, SERUM 7.6 g/dL (6.0-8.3)
[2021-06-04] MEDS ORDERED: HYDRALAZINE 20MG/ML VIAL IM ONE (15:30)
[2021-06-04] MEDS ORDERED: HYDRALAZINE 20MG/ML VIAL ONE (15:49)
[2021-06-04] MEDS ORDERED: ACET-2247 PO (16:06)
[2021-06-04 16:26] VITALS: BP 163/83
== END 2021-06-04 16:54 | disposition home or self-care (01) ==
LOC: EDH 13:41
DX: S42.035A Nondisplaced fracture of lateral end of left clavicle, initial encounter for closed fracture (principal); S09.90XA Unspecified injury of head, initial encounter; I12.0 Hypertensive chronic kidney disease with stage 5 chronic kidney disease or end stage renal disease; E11.22 Type 2 diabetes mellitus with diabetic chronic kidney disease; N18.6 End stage renal disease; E78.00 Pure hypercholesterolemia, unspecified; Z79.82 Long term (current) use of aspirin; Z88.8 Allergy status to other drugs, medicaments and biological substances; W18.39XA Other fall on same level, initial encounter; Y93.89 Activity, other specified; Y92.89 Other specified places as the place of occurrence of the external cause; Y99.8 Other external cause status; Z99.2 Dependence on renal dialysis
CPT/HCPCS: 36415; 70450; 73030; 80053; 84484; 85025; 86140; 96372; 99285; J0360

== ENCOUNTER 2021-08-09 11:49 | Inpatient (IN) | payer MEDICARE, OTHER ==
[~2021-08-09] VITALS: Ht 170.2 cm; Wt 64.0 kg
[~2021-08-09 11:49] MED LIST changes: +ACET-2247 PO
[2021-08-09 12:21] LABS: BASOPHILS % (AUTO) 0.4 % (0.0-5.0); EOSINOPHILS % (AUTO) 0.9 % (0.0-8.0); HEMATOCRIT 35.4 % (42-54); LYMPHOCYTES % (AUTO) 9.1 % (21.0-51.0); MEAN CORPUSCULAR HEMOGLOBIN 30.6 pg (27.0-33.0); MEAN CORPUSCULAR HGB CONC 33.1 g/dL (32.0-36.0); MEAN CORPUSCULAR VOLUME 92.7 fL (79-99); MONOCYTES % (AUTO) 6.1 % (3.0-13.0); NEUTROPHILS % (AUTO) 83.3 % (40.0-77.0); PLATELET COUNT (AUTO) 123 K/uL (130-400); RED BLOOD CELL COUNT(AUTO) 3.82 MIL/uL (4.50-6.20); RED CELL DISTRIBUTION WIDTH 15.7 % (11.0-15.5); WHITE BLOOD COUNT (AUTO) 8.2 K/uL (4.8-10.8)
[2021-08-09] MEDS ORDERED: 0.9% NACL 250ML 250 ML IV ONE (12:30)
[2021-08-09] MEDS ORDERED: ONDANSETRON 4MG INJ IVP ONE (12:30)
[2021-08-09] MEDS ORDERED: MORPHINE 2 MG SYG IVP ONE (12:30)
[2021-08-09 12:32] LABS: CREATININE 5.6 mg/dL (0.5-1.5)
[2021-08-09 12:37] LABS: ALBUMIN 3.8 g/dL (3.5-5.0); BILIRUBIN,TOTAL 0.8 mg/dL (0.2-1.0)
[2021-08-09 13:00] LABS: APPEARANCE,URINE SL CLOUDY (CLEAR); BILIRUBIN,URINE NEGATIVE (NEGATIVE); COLOR,URINE YELLOW (YELLOW); GLUCOSE, URINE (UA) 100 mg/dL (NEGATIVE); KETONES,URINE NEGATIVE (NEGATIVE); LEUKOCYTE ESTERASE ,URINE NEGATIVE (NEGATIVE); NITRATE,URINE NEGATIVE (NEGATIVE); OCCULT BLOOD,URINE TRACE-INTACT (NEGATIVE); PROTEIN,URINE >=300 mg/dL (NEGATIVE); UROBILINOGEN,URINE 0.2 mg/dL (0.2-1.0)
[2021-08-09 13:12] LABS: BACTERIA,URINE Few /HPF (None Seen); RBC,URINE 0-1 /HPF (0-1); SQUAMOUS EPITHELIAL CELL,UR 0-2 /HPF (0-2); WBC,URINE 0-1 /HPF (0-1)
[2021-08-09] MEDS ORDERED: VANCOMYCIN 1G VIAL IVPB ONE (14:00)
[2021-08-09] MEDS ORDERED: CEFTRIAXONE 1G VIAL IVP ONE (14:00)
[2021-08-09] MEDS ORDERED: VANCOMYCIN KIT 1 GM/250 ML IV.KIT IV ONE (14:30)
[2021-08-09] MEDS ORDERED: ACETAMINOPHEN 500 MG TABLET PO ONE (15:00)
[2021-08-09] MEDS: WATER FOR INJECTION,STERILE 40 ML, VANCOMYCIN 1G 2 GM PO SCH ×4 (16:27→22:39)
[2021-08-09] MEDS: CEFTRIAXONE 1G VIAL IV SCH (16:27)
[2021-08-09] MEDS ORDERED: COMPOUND PO MISCELLANEOUS 1 EACH MISC MISC PRN (16:30)
[2021-08-09] MEDS ORDERED: 0.9%NACL 1000ML 1,000 ML IV SCH (16:30)
[2021-08-09] MEDS ORDERED: ONDANSETRON 4MG INJ IV PRN (16:30)
[2021-08-09] MEDS ORDERED: VANCOMYCIN PROTOCOL PER PHARMACY IV PRN (16:30)
[2021-08-09] MEDS ORDERED: ACETAMINOPHEN 325 MG TAB PO PRN ×2 (16:30)
[2021-08-09] MEDS: FAMOTIDINE 20MG VIAL IV SCH (16:38)
[2021-08-09 17:35] VITALS: BP 187/89
[2021-08-09] MEDS ORDERED: SODIUM CHLORIDE 3% FOR INHALATION 4 ML/AMP VIAL.NEB IH ONE (18:47)
[2021-08-09] MEDS: IPRATROPIUM/ALBUTEROL SULFATE 3 ML SOLUTION IH PRN ×2 (18:54→20:07)
[2021-08-09 20:00] VITALS: BP 148/69
[2021-08-09] MEDS ORDERED: CLON0.1T2 PO (22:44)
[2021-08-09] MEDS ORDERED: SUCR1TAB PO (22:44)
[2021-08-09] MEDS ORDERED: METO25 PO (22:44)
[2021-08-09] MEDS ORDERED: ROPI0.257 PO (22:45)
[2021-08-09] MEDS ORDERED: SIMV10TA97 PO (22:50)
[2021-08-09] MEDS ORDERED: FERR-63 PO (22:50)
[2021-08-09] MEDS ORDERED: CITA10TA89 PO (22:50)
[2021-08-09] MEDS ORDERED: FOLI0.8T22 PO (22:50)
[2021-08-09] MEDS ORDERED: FAMO20TA8 PO (22:50)
[2021-08-09 23:32] VITALS: BP 162/78
[2021-08-10] VITALS (18 sets, daily range): BP systolic 169–193; BP diastolic 78–107
[2021-08-10] MEDS ORDERED: SODIUM CHLORIDE 3% FOR INHALATION 4 ML/AMP VIAL.NEB IH ONE ×2 (02:44→14:07)
[2021-08-10 05:42] LABS: HEMATOCRIT 36.2 % (42-54); MEAN CORPUSCULAR HEMOGLOBIN 30.7 pg (27.0-33.0); MEAN CORPUSCULAR HGB CONC 32.9 g/dL (32.0-36.0); MEAN CORPUSCULAR VOLUME 93.3 fL (79-99); PLATELET COUNT (AUTO) 92 K/uL (130-400); RED BLOOD CELL COUNT(AUTO) 3.88 MIL/uL (4.50-6.20); RED CELL DISTRIBUTION WIDTH 15.6 % (11.0-15.5); WHITE BLOOD COUNT (AUTO) 6.9 K/uL (4.8-10.8)
[2021-08-10 05:55] LABS: INR 1.23 (0.85-1.15); PARTIAL THROMBOPLASTIN TIME 32.7 SEC (26.3-35.5); PROTHROMBIN TIME 12.6 SEC (9.6-11.6)
[2021-08-10 05:57] LABS: ALBUMIN 3.3 g/dL (3.5-5.0); BILIRUBIN,TOTAL 0.5 mg/dL (0.2-1.0); MAGNESIUM 2.4 mg/dL (1.80-2.40); POTASSIUM 4.7 mmol/L (3.5-5.1); TOTAL PROTEIN, SERUM 6.5 g/dL (6.0-8.3)
[2021-08-10 06:45] LABS: EOSINOPHILS % (MANUAL) 5 % (1-6); LYMPHOCYTES % (MANUAL) 22 % (22-44); MAN.DIFF COMMENT-IMPRESSION MANUAL DIFFERENTIAL; PLATELET MORPHOLOGY COMMENT DECREASED; SEGMENTED NEUTROPHILS % 73 % (40-70)
[2021-08-10] MEDS: FAMOTIDINE 20MG VIAL IV SCH (09:00)
[2021-08-10] MEDS: FERROUS SULFATE 325 MG TABLET.DR PO SCH ×3 (09:27→21:09)
[2021-08-10] MEDS: Vitamin B Complex/Vit C/Folic Acid PO SCH (09:27)
[2021-08-10] MEDS: FAMOTIDINE 20MG TAB PO SCH (09:28)
[2021-08-10] MEDS: CITALOPRAM 20 MG TABLET PO SCH (09:28)
[2021-08-10] MEDS: WATER FOR INJECTION,STERILE 40 ML, VANCOMYCIN 1G 2 GM PO SCH ×8 (09:36→21:16)
[2021-08-10] MEDS: CLONIDINE HCL 0.1 MG TABLET PO SCH ×2 (13:35→21:09)
[2021-08-10] MEDS: METOPROLOL TARTRATE 25 MG TAB PO SCH ×2 (13:36→23:31)
[2021-08-10] MEDS: HYDRALAZINE 25MG TABLET PO SCH ×3 (14:18→21:10)
[2021-08-10 14:42] LABS: HEPATITIS B SURFACE ANTIGEN Non-Reactive (Negative)
[2021-08-10] MEDS: SUCRALFATE 1 GM TABLET PO SCH (17:00)
[2021-08-10] MEDS: CEFTRIAXONE 1G VIAL IV SCH (17:51)
[2021-08-10] MEDS: ROPINIROLE HCL 0.25 MG TABLET PO SCH (21:09)
[2021-08-10] MEDS: SIMVASTATIN 10 MG TABLET PO SCH (21:09)
[2021-08-10] MEDS: MINOXIDIL 2.5 MG TAB PO SCH (23:31)
[2021-08-11] VITALS (7 sets, daily range): BP systolic 162–198; BP diastolic 79–99
[2021-08-11] MEDS: LEVOTHYROXINE 25 MCG TABLET PO SCH (06:05)
[2021-08-11] MEDS: INSULIN HUMULIN R 100 UNIT/ML 3ML SQ SCH ×4 (06:12→20:31)
[2021-08-11] MEDS: SUCRALFATE 1 GM TABLET PO SCH ×2 (08:22→17:10)
[2021-08-11] MEDS: CITALOPRAM 20 MG TABLET PO SCH (08:23)
[2021-08-11] MEDS: CLONIDINE HCL 0.1 MG TABLET PO SCH ×2 (08:23→20:54)
[2021-08-11] MEDS: HYDRALAZINE 25MG TABLET PO SCH ×3 (08:23→20:54)
[2021-08-11] MEDS: FAMOTIDINE 20MG TAB PO SCH (08:24)
[2021-08-11] MEDS: Vitamin B Complex/Vit C/Folic Acid PO SCH (08:24)
[2021-08-11] MEDS: MINOXIDIL 2.5 MG TAB PO SCH ×2 (08:24→20:53)
[2021-08-11] MEDS: METOPROLOL TARTRATE 25 MG TAB PO SCH ×2 (08:24→21:00)
[2021-08-11] MEDS: FERROUS SULFATE 325 MG TABLET.DR PO SCH ×3 (08:24→20:53)
[2021-08-11] MEDS: WATER FOR INJECTION,STERILE 40 ML, VANCOMYCIN 1G 2 GM PO SCH ×8 (08:31→20:58)
[2021-08-11] MEDS: FAMOTIDINE 20MG VIAL IV SCH (09:00)
[2021-08-11 13:01] LABS: HEMATOCRIT 35.7 % (42-54); MEAN CORPUSCULAR HEMOGLOBIN 31.2 pg (27.0-33.0); MEAN CORPUSCULAR HGB CONC 33.6 g/dL (32.0-36.0); MEAN CORPUSCULAR VOLUME 92.7 fL (79-99); RED BLOOD CELL COUNT(AUTO) 3.85 MIL/uL (4.50-6.20); RED CELL DISTRIBUTION WIDTH 15.3 % (11.0-15.5); WHITE BLOOD COUNT (AUTO) 5.7 K/uL (4.8-10.8)
[2021-08-11 13:10] LABS: CREATININE 5.1 mg/dL (0.5-1.5); POTASSIUM 3.8 mmol/L (3.5-5.1)
[2021-08-11] MEDS ORDERED: CLONIDINE HCL 0.1 MG TABLET PO SCH (14:00)
[2021-08-11] MEDS ORDERED: VANCOMYCIN 1G/250ML KIT 250 ML IV SCH (15:00)
[2021-08-11] MEDS: CEFTRIAXONE 1G VIAL IV SCH (17:10)
[2021-08-11] MEDS: SIMVASTATIN 10 MG TABLET PO SCH (20:55)
[2021-08-11] MEDS: ROPINIROLE HCL 0.25 MG TABLET PO SCH (20:55)
[2021-08-12] VITALS (23 sets, daily range): BP systolic 153–216; BP diastolic 70–100
[2021-08-12 04:49] LABS: HEMATOCRIT 33.1 % (42-54); MEAN CORPUSCULAR HEMOGLOBIN 30.1 pg (27.0-33.0); MEAN CORPUSCULAR HGB CONC 32.6 g/dL (32.0-36.0); MEAN CORPUSCULAR VOLUME 92.2 fL (79-99); RED BLOOD CELL COUNT(AUTO) 3.59 MIL/uL (4.50-6.20); RED CELL DISTRIBUTION WIDTH 15.1 % (11.0-15.5); WHITE BLOOD COUNT (AUTO) 4.8 K/uL (4.8-10.8)
[2021-08-12 05:21] LABS: CREATININE 5.9 mg/dL (0.5-1.5); POTASSIUM 4.1 mmol/L (3.5-5.1)
[2021-08-12] MEDS: INSULIN HUMULIN R 100 UNIT/ML 3ML SQ SCH ×4 (06:07→21:00)
[2021-08-12] MEDS: LEVOTHYROXINE 25 MCG TABLET PO SCH (06:07)
[2021-08-12] MEDS: SUCRALFATE 1 GM TABLET PO SCH ×2 (08:00→15:56)
[2021-08-12] MEDS: FERROUS SULFATE 325 MG TABLET.DR PO SCH ×3 (09:00→19:37)
[2021-08-12] MEDS: CITALOPRAM 20 MG TABLET PO SCH (09:00)
[2021-08-12] MEDS: Vitamin B Complex/Vit C/Folic Acid PO SCH (09:00)
[2021-08-12] MEDS: HYDRALAZINE 25MG TABLET PO SCH ×3 (09:00→19:37)
[2021-08-12] MEDS: MINOXIDIL 2.5 MG TAB PO SCH ×2 (09:00→19:37)
[2021-08-12] MEDS: WATER FOR INJECTION,STERILE 40 ML, VANCOMYCIN 1G 2 GM PO SCH ×8 (09:00→21:59)
[2021-08-12] MEDS: CLONIDINE HCL 0.1 MG TABLET PO SCH ×2 (09:00→21:59)
[2021-08-12] MEDS: FAMOTIDINE 20MG TAB PO SCH (09:00)
[2021-08-12] MEDS: METOPROLOL TARTRATE 25 MG TAB PO SCH ×2 (09:00→19:37)
[2021-08-12] MEDS ORDERED: CEFD300C3 PO (09:36)
[2021-08-12] MEDS ORDERED: CLONIDINE HCL 0.2 MG TABLET PO ONE ×2 (14:30→15:54)
[2021-08-12] MEDS ORDERED: CLON0.1T PO (14:32)
[2021-08-12] MEDS: CEFTRIAXONE 1G VIAL IV SCH (15:56)
[2021-08-12] MEDS ORDERED: HYDRALAZINE 20MG/ML VIAL IV PRN (18:00)
[2021-08-12] MEDS: ROPINIROLE HCL 0.25 MG TABLET PO SCH (19:37)
[2021-08-12] MEDS: SIMVASTATIN 10 MG TABLET PO SCH (19:37)
[2021-08-12] MEDS: LABETALOL 20MG VIAL IV PRN (19:49)
[2021-08-13 00:28] VITALS: BP 148/64
[2021-08-13] MEDS: LABETALOL 20MG VIAL IV PRN (03:47)
[2021-08-13 03:56] VITALS: BP 182/88
[2021-08-13 04:31] VITALS: BP 167/78
[2021-08-13] MEDS: LEVOTHYROXINE 25 MCG TABLET PO SCH (06:06)
[2021-08-13] MEDS: INSULIN HUMULIN R 100 UNIT/ML 3ML SQ SCH (06:07)
[2021-08-13 07:25] VITALS: BP 187/92
[2021-08-13] MEDS: Vitamin B Complex/Vit C/Folic Acid PO SCH (09:37)
[2021-08-13] MEDS: FAMOTIDINE 20MG TAB PO SCH (09:37)
[2021-08-13 09:38] VITALS: BP 187/92
[2021-08-13] MEDS: METOPROLOL TARTRATE 25 MG TAB PO SCH (09:38)
[2021-08-13] MEDS: CITALOPRAM 20 MG TABLET PO SCH (09:38)
[2021-08-13] MEDS: FERROUS SULFATE 325 MG TABLET.DR PO SCH (09:38)
[2021-08-13] MEDS: MINOXIDIL 2.5 MG TAB PO SCH (09:38)
[2021-08-13] MEDS: CLONIDINE HCL 0.1 MG TABLET PO SCH (09:38)
[2021-08-13] MEDS: HYDRALAZINE 25MG TABLET PO SCH (09:39)
[2021-08-13] MEDS: SUCRALFATE 1 GM TABLET PO SCH (09:40)
[2021-08-13] MEDS: WATER FOR INJECTION,STERILE 40 ML, VANCOMYCIN 1G 2 GM PO SCH ×2 (09:42)
== END 2021-08-13 11:15 | disposition home or self-care (01) | DRG 193 ==
LOC: EDH 11:49 → EDHIP 16:04 → 3DH 17:30
PROVIDERS: ADMIT Hospitalist; ATTEND Hospitalist
PROC: 5A1D70Z Performance of Urinary Filtration, Intermittent, Less than 6 Hours Per Day (ICD-10-PCS; principal; 2021-08-09)
PROC: 5A1D70Z Performance of Urinary Filtration, Intermittent, Less than 6 Hours Per Day (ICD-10-PCS; 2021-08-10)
PROC: 5A1D70Z Performance of Urinary Filtration, Intermittent, Less than 6 Hours Per Day (ICD-10-PCS; 2021-08-13)
DX: J18.9 Pneumonia, unspecified organism (principal); J96.01 Acute respiratory failure with hypoxia; N18.6 End stage renal disease; E87.1 Hypo-osmolality and hyponatremia; R18.8 Other ascites; I13.11 Hypertensive heart and chronic kidney disease without heart failure, with stage 5 chronic kidney disease, or end stage renal disease; Z20.822 Contact with and (suspected) exposure to COVID-19; E11.22 Type 2 diabetes mellitus with diabetic chronic kidney disease; E78.00 Pure hypercholesterolemia, unspecified; E11.51 Type 2 diabetes mellitus with diabetic peripheral angiopathy without gangrene; I25.10 Atherosclerotic heart disease of native coronary artery without angina pectoris; K74.60 Unspecified cirrhosis of liver; E78.5 Hyperlipidemia, unspecified; D64.9 Anemia, unspecified; E11.21 Type 2 diabetes mellitus with diabetic nephropathy; E03.9 Hypothyroidism, unspecified; Z82.3 Family history of stroke; Z82.49 Family history of ischemic heart disease and other diseases of the circulatory system; Z89.511 Acquired absence of right leg below knee; Z86.73 Personal history of transient ischemic attack (TIA), and cerebral infarction without residual deficits; Z99.2 Dependence on renal dialysis; Z83.3 Family history of diabetes mellitus; Z82.5 Family history of asthma and other chronic lower respiratory diseases
CPT/HCPCS: 36415; 71045; 74176; 76705; 78226; 78582; 80048; 80053; 81001; 82948; 83605; 83735; 84100; 84145; 85025; 85027; 85378; 85610; 85651; 85730; 86140; 86704; 86706; 87040; 87046; 87088; 87340; 87635; 87804; 87880; 90935; 94640; 94664; 97039; A9537; A9540; A9558; C9803; G0378; J0696; J2405; J3370; J3490; J7030

== ENCOUNTER 2021-10-06 01:55 | Inpatient (IN) | payer OTHER ==
[~2021-10-06] VITALS: Ht 167.6 cm; Wt 57.6 kg
[~2021-10-06 01:55] MED LIST changes: +ACET-2079 PO; -ACET-2247 PO; -AMLO-257 PO; +APIX2.5T PO; -ASPI-1005 PO; +CEPH500B PO; +FAMO20TA8 PO; +FERR-72 PO; +FOLI0.8T43 PO; -HYDR100T27 PO; +LEVO25CA4 PO; -LEVO25TA54 PO; -MINO2.5T3 PO; -PANT40TA54 PO; -RENAVITE PO; +ROPI0.257 PO; +SEVE800T27 PO; +SIMV10TA97 PO; +SUCR1TAB2 PO
[2021-10-06 02:32] LABS: BASOPHILS % (AUTO) 0.4 % (0.0-5.0); EOSINOPHILS % (AUTO) 0.8 % (0.0-8.0); HEMATOCRIT 27.3 % (42-54); LYMPHOCYTES % (AUTO) 7.5 % (21.0-51.0); MEAN CORPUSCULAR HEMOGLOBIN 29.6 pg (27.0-33.0); MEAN CORPUSCULAR HGB CONC 32.6 g/dL (32.0-36.0); MEAN CORPUSCULAR VOLUME 90.7 fL (79-99); MONOCYTES % (AUTO) 7.2 % (3.0-13.0); NEUTROPHILS % (AUTO) 83.8 % (40.0-77.0); PLATELET COUNT (AUTO) 246 K/uL (130-400); RED BLOOD CELL COUNT(AUTO) 3.01 MIL/uL (4.50-6.20); RED CELL DISTRIBUTION WIDTH 14.7 % (11.0-15.5); WHITE BLOOD COUNT (AUTO) 9.5 K/uL (4.8-10.8)
[2021-10-06 02:44] LABS: POTASSIUM 4.4 mmol/L (3.5-5.1)
[2021-10-06 02:48] LABS: ALBUMIN 2.6 g/dL (3.5-5.0); BILIRUBIN,TOTAL 0.7 mg/dL (0.2-1.0); TOTAL PROTEIN, SERUM 6.3 g/dL (6.0-8.3)
[2021-10-06] MEDS ORDERED: MORPHINE 2 MG SYG ONE (06:14)
[2021-10-06 08:15] VITALS: BP 165/53
[2021-10-06] MEDS ORDERED: MERO1VIA23 IV (10:20)
[2021-10-06 12:00] VITALS: BP 139/62
[2021-10-06] MEDS ORDERED: SEVELAMER HCL 800 MG TABLET PO SCH (14:00)
[2021-10-06] MEDS: MEROPENEM 1 GM VIAL IV SCH (14:06)
[2021-10-06] MEDS: FERROUS SULFATE 325 MG TABLET.DR PO SCH ×2 (14:06→19:51)
[2021-10-06 16:00] VITALS: BP 159/87
[2021-10-06] MEDS: SEVELAMER HCL 800 MG TABLET PO SCH (18:21)
[2021-10-06 19:00] VITALS: BP 180/90
[2021-10-06] MEDS: ROPINIROLE HCL 0.25 MG TABLET PO SCH (19:51)
[2021-10-06] MEDS: SUCRALFATE 1 GM TABLET PO SCH (19:51)
[2021-10-06] MEDS: SIMVASTATIN 10 MG TABLET PO SCH (19:51)
[2021-10-06] MEDS: CEPHALEXIN 500 MG CAPSULE PO SCH (19:51)
[2021-10-06] MEDS: APIXABAN 2.5 MG TABLET PO SCH (19:52)
[2021-10-06] MEDS: ACETAMINOPHEN WITH CODEINE 1 TAB TAB PO PRN (20:00)
[2021-10-06] MEDS: INSULIN HUMULIN R 100 UNIT/ML 3ML SQ SCH (20:10)
[2021-10-07] VITALS (24 sets, daily range): BP systolic 121–202; BP diastolic 53–112
[2021-10-07] MEDS: INSULIN HUMULIN R 100 UNIT/ML 3ML SQ SCH ×3 (05:17→21:00)
[2021-10-07] MEDS: SEVELAMER HCL 800 MG TABLET PO SCH ×3 (08:00→17:00)
[2021-10-07] MEDS: FAMOTIDINE 20MG TAB PO SCH (08:57)
[2021-10-07] MEDS: LEVOTHYROXINE 25 MCG TABLET PO SCH (08:57)
[2021-10-07] MEDS: Vitamin B Complex/Vit C/Folic Acid PO SCH (08:57)
[2021-10-07] MEDS: SUCRALFATE 1 GM TABLET PO SCH ×2 (08:57→22:39)
[2021-10-07] MEDS: CEPHALEXIN 500 MG CAPSULE PO SCH (08:57)
[2021-10-07] MEDS: APIXABAN 2.5 MG TABLET PO SCH ×2 (08:57→21:00)
[2021-10-07] MEDS: FERROUS SULFATE 325 MG TABLET.DR PO SCH ×3 (08:57→22:39)
[2021-10-07] MEDS: MEROPENEM 1 GM VIAL IV SCH (08:57)
[2021-10-07] MEDS ORDERED: MEROPENEM 1 GM VIAL IV SCH (09:00)
[2021-10-07] MEDS ORDERED: KETAMINE 50MG/ML SYRINGE 50 MG/ML DISP.SYRIN IV ONE (19:25)
[2021-10-07] MEDS ORDERED: MIDAZOLAM HCL 1 MG/ML 2ML VIAL ONE (19:29)
[2021-10-07] MEDS ORDERED: PROPOFOL 10 MG/ML 20ML VIAL IV ONE (19:29)
[2021-10-07] MEDS ORDERED: DEXTROSE 50%-WATER 50 ML DISP.SYRIN IV ONE (20:15)
[2021-10-07] MEDS ORDERED: ESMOLOL HCL 10 MG/ML 10 ML VIAL ONE (20:24)
[2021-10-07 21:41] LABS: HEPATITIS B SURFACE ANTIGEN Non-Reactive (Negative)
[2021-10-07] MEDS: SIMVASTATIN 10 MG TABLET PO SCH (22:39)
[2021-10-07] MEDS: ROPINIROLE HCL 0.25 MG TABLET PO SCH (22:39)
[2021-10-07] MEDS: ACETAMINOPHEN WITH CODEINE 1 TAB TAB PO PRN (22:39)
[2021-10-08] VITALS (23 sets, daily range): BP systolic 147–202; BP diastolic 46–113
[2021-10-08 04:27] LABS: HEMATOCRIT 23.1 % (42-54); MEAN CORPUSCULAR HEMOGLOBIN 29.4 pg (27.0-33.0); MEAN CORPUSCULAR HGB CONC 33.3 g/dL (32.0-36.0); MEAN CORPUSCULAR VOLUME 88.2 fL (79-99); RED BLOOD CELL COUNT(AUTO) 2.62 MIL/uL (4.50-6.20); RED CELL DISTRIBUTION WIDTH 14.6 % (11.0-15.5); WHITE BLOOD COUNT (AUTO) 12.8 K/uL (4.8-10.8)
[2021-10-08 04:36] LABS: CREATININE 7.2 mg/dL (0.5-1.5); MAGNESIUM 2.1 mg/dL (1.80-2.40); POTASSIUM 5.2 mmol/L (3.5-5.1)
[2021-10-08] MEDS: INSULIN HUMULIN R 100 UNIT/ML 3ML SQ SCH ×4 (07:30→21:00)
[2021-10-08] MEDS: SUCRALFATE 1 GM TABLET PO SCH ×2 (08:16→21:46)
[2021-10-08] MEDS: LEVOTHYROXINE 25 MCG TABLET PO SCH (08:16)
[2021-10-08] MEDS: FERROUS SULFATE 325 MG TABLET.DR PO SCH ×3 (08:16→21:47)
[2021-10-08] MEDS: SEVELAMER HCL 800 MG TABLET PO SCH ×3 (08:16→18:09)
[2021-10-08] MEDS: Vitamin B Complex/Vit C/Folic Acid PO SCH (08:16)
[2021-10-08] MEDS: MEROPENEM 1 GM VIAL IV SCH (08:17)
[2021-10-08] MEDS: FAMOTIDINE 20MG TAB PO SCH (08:17)
[2021-10-08] MEDS: HEPARIN 5,000 UNIT VIAL SQ SCH (08:22)
[2021-10-08] MEDS: CLONIDINE HCL 0.1 MG TABLET PO SCH ×2 (14:27→21:47)
[2021-10-08] MEDS: ROPINIROLE HCL 0.25 MG TABLET PO SCH (21:46)
[2021-10-08] MEDS: SIMVASTATIN 10 MG TABLET PO SCH (21:47)
[2021-10-08] MEDS: EPOETIN ALFA-EPBX (ESRD) 10,000 UNIT/ML VIAL SQ SCH (21:53)
[2021-10-09] VITALS (22 sets, daily range): BP systolic 137–220; BP diastolic 55–121
[2021-10-09 04:44] LABS: CREATININE 5.8 mg/dL (0.5-1.5); MAGNESIUM 2.1 mg/dL (1.80-2.40); POTASSIUM 4.5 mmol/L (3.5-5.1)
[2021-10-09 05:41] LABS: HEMATOCRIT 21.9 % (42-54); MEAN CORPUSCULAR HEMOGLOBIN 28.9 pg (27.0-33.0); MEAN CORPUSCULAR HGB CONC 31.5 g/dL (32.0-36.0); MEAN CORPUSCULAR VOLUME 91.6 fL (79-99); RED BLOOD CELL COUNT(AUTO) 2.39 MIL/uL (4.50-6.20); RED CELL DISTRIBUTION WIDTH 14.6 % (11.0-15.5); WHITE BLOOD COUNT (AUTO) 7.8 K/uL (4.8-10.8)
[2021-10-09] MEDS: INSULIN HUMULIN R 100 UNIT/ML 3ML SQ SCH ×5 (05:56→20:38)
[2021-10-09] MEDS: MEROPENEM 1 GM VIAL IV SCH (09:57)
[2021-10-09] MEDS: SEVELAMER HCL 800 MG TABLET PO SCH ×3 (09:58→16:55)
[2021-10-09] MEDS: SUCRALFATE 1 GM TABLET PO SCH ×2 (09:58→20:11)
[2021-10-09] MEDS: FAMOTIDINE 20MG TAB PO SCH (09:58)
[2021-10-09] MEDS: CLONIDINE HCL 0.1 MG TABLET PO SCH ×3 (09:58→20:10)
[2021-10-09] MEDS: Vitamin B Complex/Vit C/Folic Acid PO SCH (09:58)
[2021-10-09] MEDS: FERROUS SULFATE 325 MG TABLET.DR PO SCH ×3 (09:58→20:11)
[2021-10-09] MEDS: LEVOTHYROXINE 25 MCG TABLET PO SCH (09:59)
[2021-10-09] MEDS: HYDRALAZINE 25MG TABLET PO SCH ×3 (11:53→20:11)
[2021-10-09] MEDS ORDERED: LOSARTAN 100 MG TABLET ONE (17:03)
[2021-10-09] MEDS ORDERED: LOSARTAN 100 MG TABLET PO ONE (17:30)
[2021-10-09] MEDS: ROPINIROLE HCL 0.25 MG TABLET PO SCH (20:11)
[2021-10-09] MEDS: SIMVASTATIN 10 MG TABLET PO SCH (20:11)
[2021-10-09] MEDS: HEPARIN 5,000 UNIT VIAL SQ SCH (20:43)
[2021-10-10] VITALS (26 sets, daily range): BP systolic 120–206; BP diastolic 41–95
[2021-10-10] MEDS: ACETAMINOPHEN WITH CODEINE 1 TAB TAB PO PRN ×2 (00:30→15:11)
[2021-10-10 01:00] LABS: HEMATOCRIT 28.5 % (42-54)
[2021-10-10] MEDS ORDERED: METOPROLOL TARTRATE 1 MG/ML 5ML VIAL IV ONE (02:30)
[2021-10-10 05:26] LABS: BASOPHILS % (AUTO) 0.7 % (0.0-5.0); EOSINOPHILS % (AUTO) 4.6 % (0.0-8.0); HEMATOCRIT 31.2 % (42-54); LYMPHOCYTES % (AUTO) 9.1 % (21.0-51.0); MEAN CORPUSCULAR HEMOGLOBIN 28.8 pg (27.0-33.0); MEAN CORPUSCULAR HGB CONC 32.4 g/dL (32.0-36.0); MEAN CORPUSCULAR VOLUME 88.9 fL (79-99); NEUTROPHILS % (AUTO) 75.3 % (40.0-77.0); PLATELET COUNT (AUTO) 279 K/uL (130-400); RED BLOOD CELL COUNT(AUTO) 3.51 MIL/uL (4.50-6.20); RED CELL DISTRIBUTION WIDTH 14.9 % (11.0-15.5)
[2021-10-10 05:37] LABS: CREATININE 5.1 mg/dL (0.5-1.5); POTASSIUM 4.1 mmol/L (3.5-5.1)
[2021-10-10] MEDS: INSULIN HUMULIN R 100 UNIT/ML 3ML SQ SCH ×4 (05:56→20:47)
[2021-10-10] MEDS ORDERED: METOPROLOL TARTRATE 50 MG TAB ONE (06:43)
[2021-10-10] MEDS: CLONIDINE HCL 0.1 MG TABLET PO SCH ×3 (06:44→20:11)
[2021-10-10] MEDS: HYDRALAZINE 25MG TABLET PO SCH ×3 (06:44→20:14)
[2021-10-10] MEDS: METOPROLOL TARTRATE 50 MG TAB PO SCH ×2 (06:45→20:11)
[2021-10-10] MEDS: SEVELAMER HCL 800 MG TABLET PO SCH ×3 (07:00→17:23)
[2021-10-10] MEDS: FAMOTIDINE 20MG TAB PO SCH (09:00)
[2021-10-10] MEDS: HEPARIN 5,000 UNIT VIAL SQ SCH (09:00)
[2021-10-10] MEDS: LEVOTHYROXINE 25 MCG TABLET PO SCH (09:00)
[2021-10-10] MEDS: Vitamin B Complex/Vit C/Folic Acid PO SCH (09:00)
[2021-10-10] MEDS: SUCRALFATE 1 GM TABLET PO SCH ×2 (09:00→20:09)
[2021-10-10] MEDS: FERROUS SULFATE 325 MG TABLET.DR PO SCH ×3 (09:00→20:09)
[2021-10-10] MEDS ORDERED: PROPOFOL 10 MG/ML 20ML VIAL IV ONE (09:22)
[2021-10-10] MEDS ORDERED: FENTANYL CITRATE PF 50 MCG/1 ML 2ML VIAL ONE ×2 (09:23→09:29)
[2021-10-10] MEDS ORDERED: ROCURONIUM 10MG/1ML SYR 10 MG/ML ML ONE (09:29)
[2021-10-10] MEDS ORDERED: LIDOCAINE 1%-EPI 1:100,000 20 ML VIAL IJ ONE (09:30)
[2021-10-10] MEDS ORDERED: ROPIVACAINE 0.5% 5MG/ML 30ML IJ ONE (09:30)
[2021-10-10] MEDS: MEROPENEM 1 GM VIAL IV SCH ×2 (09:36→10:00)
[2021-10-10] MEDS ORDERED: ONDANSETRON 4MG INJ ONE (10:49)
[2021-10-10] MEDS ORDERED: DEXAMETHASONE SOD PHOSPHATE 10MG/ML 1ML VIAL ONE (10:56)
[2021-10-10] MEDS ORDERED: NEOSTIGMINE 5MG/5ML SYR IV ONE (11:01)
[2021-10-10] MEDS ORDERED: GLYCOPYRROLATE 1 MG/5 ML SYRINGE ONE (11:01)
[2021-10-10] MEDS ORDERED: HYDRALAZINE 20MG/ML VIAL ONE (11:21)
[2021-10-10] MEDS ORDERED: MORPHINE 2 MG SYG ONE ×2 (11:31→11:46)
[2021-10-10] MEDS: SIMVASTATIN 10 MG TABLET PO SCH (20:10)
[2021-10-10] MEDS: ROPINIROLE HCL 0.25 MG TABLET PO SCH (20:11)
[2021-10-10] MEDS: CHLORHEXIDINE GLUCONATE 473 ML MOUTHWASH MM SCH (20:48)
[2021-10-11] VITALS: BP 110/61
[2021-10-11] MEDS ORDERED: MORPHINE 2 MG SYG IVP PRN (02:00)
[2021-10-11 04:00] VITALS: BP 159/43
[2021-10-11 04:26] LABS: BASOPHILS % (AUTO) 0.4 % (0.0-5.0); EOSINOPHILS % (AUTO) 0.4 % (0.0-8.0); HEMATOCRIT 31.1 % (42-54); LYMPHOCYTES % (AUTO) 8.5 % (21.0-51.0); MEAN CORPUSCULAR HEMOGLOBIN 28.4 pg (27.0-33.0); MEAN CORPUSCULAR HGB CONC 32.8 g/dL (32.0-36.0); MEAN CORPUSCULAR VOLUME 86.6 fL (79-99); MONOCYTES % (AUTO) 9.2 % (3.0-13.0); NEUTROPHILS % (AUTO) 81.2 % (40.0-77.0); PLATELET COUNT (AUTO) 299 K/uL (130-400); RED BLOOD CELL COUNT(AUTO) 3.59 MIL/uL (4.50-6.20); RED CELL DISTRIBUTION WIDTH 14.5 % (11.0-15.5); WHITE BLOOD COUNT (AUTO) 7.8 K/uL (4.8-10.8)
[2021-10-11] MEDS: TRAMADOL HCL 50 MG TABLET PO PRN ×2 (04:28→11:28)
[2021-10-11 04:37] LABS: CREATININE 6.1 mg/dL (0.5-1.5); POTASSIUM 4.9 mmol/L (3.5-5.1)
[2021-10-11] MEDS: INSULIN HUMULIN R 100 UNIT/ML 3ML SQ SCH ×4 (05:24→20:47)
[2021-10-11 08:12] VITALS: BP 159/75
[2021-10-11] MEDS: CLONIDINE HCL 0.1 MG TABLET PO SCH ×3 (09:06→20:28)
[2021-10-11] MEDS: FERROUS SULFATE 325 MG TABLET.DR PO SCH ×3 (09:07→20:27)
[2021-10-11] MEDS: SEVELAMER HCL 800 MG TABLET PO SCH ×3 (09:07→17:23)
[2021-10-11] MEDS: Vitamin B Complex/Vit C/Folic Acid PO SCH (09:07)
[2021-10-11] MEDS: FAMOTIDINE 20MG TAB PO SCH (09:07)
[2021-10-11] MEDS: HYDRALAZINE 25MG TABLET PO SCH ×3 (09:07→20:28)
[2021-10-11] MEDS: METOPROLOL TARTRATE 50 MG TAB PO SCH ×2 (09:07→20:27)
[2021-10-11] MEDS: LEVOTHYROXINE 25 MCG TABLET PO SCH (09:07)
[2021-10-11] MEDS: SUCRALFATE 1 GM TABLET PO SCH ×2 (09:07→20:27)
[2021-10-11] MEDS: HEPARIN 5,000 UNIT VIAL SQ SCH (09:08)
[2021-10-11] MEDS: CHLORHEXIDINE GLUCONATE 473 ML MOUTHWASH MM SCH ×2 (09:11→20:28)
[2021-10-11] MEDS: MEROPENEM 1 GM VIAL IV SCH (09:11)
[2021-10-11 11:35] VITALS: BP 156/77
[2021-10-11 16:06] VITALS: BP 174/85
[2021-10-11 20:00] VITALS: BP 183/83
[2021-10-11] MEDS: SIMVASTATIN 10 MG TABLET PO SCH (20:27)
[2021-10-11] MEDS: ROPINIROLE HCL 0.25 MG TABLET PO SCH (20:27)
[2021-10-12] VITALS (23 sets, daily range): BP systolic 150–216; BP diastolic 51–87
[2021-10-12 04:57] LABS: BASOPHILS % (AUTO) 0.9 % (0.0-5.0); EOSINOPHILS % (AUTO) 2.3 % (0.0-8.0); HEMATOCRIT 27.2 % (42-54); LYMPHOCYTES % (AUTO) 11.4 % (21.0-51.0); MEAN CORPUSCULAR HEMOGLOBIN 29.4 pg (27.0-33.0); MEAN CORPUSCULAR HGB CONC 33.5 g/dL (32.0-36.0); MEAN CORPUSCULAR VOLUME 87.7 fL (79-99); MONOCYTES % (AUTO) 12.1 % (3.0-13.0); NEUTROPHILS % (AUTO) 72.7 % (40.0-77.0); PLATELET COUNT (AUTO) 307 K/uL (130-400); RED CELL DISTRIBUTION WIDTH 14.6 % (11.0-15.5); WHITE BLOOD COUNT (AUTO) 6.6 K/uL (4.8-10.8)
[2021-10-12 05:11] LABS: CREATININE 7.4 mg/dL (0.5-1.5); POTASSIUM 5.4 mmol/L (3.5-5.1)
[2021-10-12] MEDS: INSULIN HUMULIN R 100 UNIT/ML 3ML SQ SCH ×4 (05:37→20:09)
[2021-10-12] MEDS: Vitamin B Complex/Vit C/Folic Acid PO SCH (08:55)
[2021-10-12] MEDS: SUCRALFATE 1 GM TABLET PO SCH ×2 (08:55→20:08)
[2021-10-12] MEDS: HYDRALAZINE 25MG TABLET PO SCH ×3 (08:55→20:08)
[2021-10-12] MEDS: LEVOTHYROXINE 25 MCG TABLET PO SCH (08:56)
[2021-10-12] MEDS: FERROUS SULFATE 325 MG TABLET.DR PO SCH ×3 (08:56→20:08)
[2021-10-12] MEDS: MEROPENEM 1 GM VIAL IV SCH (08:56)
[2021-10-12] MEDS: SEVELAMER HCL 800 MG TABLET PO SCH ×3 (08:56→17:19)
[2021-10-12] MEDS: CLONIDINE HCL 0.1 MG TABLET PO SCH ×3 (08:56→20:09)
[2021-10-12] MEDS: FAMOTIDINE 20MG TAB PO SCH (08:56)
[2021-10-12] MEDS: HEPARIN 5,000 UNIT VIAL SQ SCH (09:01)
[2021-10-12] MEDS: CHLORHEXIDINE GLUCONATE 473 ML MOUTHWASH MM SCH ×2 (09:05→20:09)
[2021-10-12] MEDS: METOPROLOL TARTRATE 50 MG TAB PO SCH ×2 (09:05→20:09)
[2021-10-12] MEDS: TRAMADOL HCL 50 MG TABLET PO PRN ×2 (09:33→19:34)
[2021-10-12] MEDS ORDERED: KAYEXALATE 15GM/60ML PO ONE (11:45)
[2021-10-12] MEDS ORDERED: HEPARIN 10,000 UNIT/10ML (1,000 UNIT/ML) VIAL ONE (15:52)
[2021-10-12] MEDS ORDERED: LIDOCAINE HCL 1% MDV 50ML VIAL ONE (15:52)
[2021-10-12] MEDS ORDERED: IODIXANOL 320 MG/ML 100 ML VIAL ONE (15:53)
[2021-10-12] MEDS: SIMVASTATIN 10 MG TABLET PO SCH (20:08)
[2021-10-12] MEDS: ROPINIROLE HCL 0.25 MG TABLET PO SCH (20:08)
[2021-10-13 00:16] VITALS: BP 162/81
[2021-10-13 03:45] VITALS: BP 152/85
[2021-10-13 08:00] VITALS: BP 146/45
[2021-10-13] MEDS: FAMOTIDINE 20MG TAB PO SCH (10:04)
[2021-10-13] MEDS: CLONIDINE HCL 0.1 MG TABLET PO SCH ×3 (10:04→22:00)
[2021-10-13] MEDS: HYDRALAZINE 25MG TABLET PO SCH ×3 (10:05→22:00)
[2021-10-13] MEDS: SUCRALFATE 1 GM TABLET PO SCH ×2 (10:05→20:53)
[2021-10-13] MEDS: SEVELAMER HCL 800 MG TABLET PO SCH ×3 (10:05→17:11)
[2021-10-13] MEDS: FERROUS SULFATE 325 MG TABLET.DR PO SCH ×3 (10:05→22:00)
[2021-10-13] MEDS: MEROPENEM 1 GM VIAL IV SCH (10:06)
[2021-10-13] MEDS: LEVOTHYROXINE 25 MCG TABLET PO SCH (10:06)
[2021-10-13] MEDS: Vitamin B Complex/Vit C/Folic Acid PO SCH (10:06)
[2021-10-13] MEDS: METOPROLOL TARTRATE 50 MG TAB PO SCH ×2 (10:06→22:00)
[2021-10-13] MEDS: CHLORHEXIDINE GLUCONATE 473 ML MOUTHWASH MM SCH ×2 (10:07→20:53)
[2021-10-13] MEDS: HEPARIN 5,000 UNIT VIAL SQ SCH (10:16)
[2021-10-13] MEDS: INSULIN HUMULIN R 100 UNIT/ML 3ML SQ SCH ×3 (11:30→20:57)
[2021-10-13 11:37] VITALS: BP 149/58
[2021-10-13 16:00] VITALS: BP 152/77
[2021-10-13 19:00] VITALS: BP 181/62
[2021-10-13] MEDS: EPOETIN ALFA-EPBX (ESRD) 10,000 UNIT/ML VIAL SQ SCH (20:53)
[2021-10-13] MEDS: SIMVASTATIN 10 MG TABLET PO SCH (22:00)
[2021-10-13] MEDS: ROPINIROLE HCL 0.25 MG TABLET PO SCH (22:00)
[2021-10-14] VITALS (23 sets, daily range): BP systolic 133–197; BP diastolic 49–87
[2021-10-14] MEDS: INSULIN HUMULIN R 100 UNIT/ML 3ML SQ SCH ×4 (06:39→21:00)
[2021-10-14 07:15] LABS: HEMATOCRIT 28.2 % (42-54); MEAN CORPUSCULAR HEMOGLOBIN 29.1 pg (27.0-33.0); MEAN CORPUSCULAR HGB CONC 32.3 g/dL (32.0-36.0); MEAN CORPUSCULAR VOLUME 90.1 fL (79-99); PLATELET COUNT (AUTO) 292 K/uL (130-400); RED BLOOD CELL COUNT(AUTO) 3.13 MIL/uL (4.50-6.20); RED CELL DISTRIBUTION WIDTH 14.5 % (11.0-15.5); WHITE BLOOD COUNT (AUTO) 5.2 K/uL (4.8-10.8)
[2021-10-14 07:25] LABS: CREATININE 7.3 mg/dL (0.5-1.5); POTASSIUM 4.9 mmol/L (3.5-5.1)
[2021-10-14] MEDS: SEVELAMER HCL 800 MG TABLET PO SCH ×3 (08:00→17:00)
[2021-10-14 08:06] LABS: BAND NEUTROPHILS % (MANUAL) 1 % (0-2); LYMPHOCYTES % (MANUAL) 10 % (22-44); MAN.DIFF COMMENT-IMPRESSION MANUAL DIFFERENTIAL; MONOCYTES % (MANUAL) 13 % (2-9); PLATELET MORPHOLOGY COMMENT ADEQUATE; SEGMENTED NEUTROPHILS % 76 % (40-70)
[2021-10-14] MEDS: METOPROLOL TARTRATE 50 MG TAB PO SCH ×2 (09:00→21:32)
[2021-10-14] MEDS: HEPARIN 5,000 UNIT VIAL SQ SCH (09:00)
[2021-10-14] MEDS: CLONIDINE HCL 0.1 MG TABLET PO SCH ×3 (09:00→21:29)
[2021-10-14] MEDS: MEROPENEM 1 GM VIAL IV SCH (09:00)
[2021-10-14] MEDS: CHLORHEXIDINE GLUCONATE 473 ML MOUTHWASH MM SCH ×2 (09:00→20:35)
[2021-10-14] MEDS: HYDRALAZINE 25MG TABLET PO SCH ×3 (09:00→21:31)
[2021-10-14] MEDS: FERROUS SULFATE 325 MG TABLET.DR PO SCH ×3 (09:59→21:31)
[2021-10-14] MEDS: SUCRALFATE 1 GM TABLET PO SCH ×2 (09:59→20:35)
[2021-10-14] MEDS: Vitamin B Complex/Vit C/Folic Acid PO SCH (10:00)
[2021-10-14] MEDS: LEVOTHYROXINE 25 MCG TABLET PO SCH (10:00)
[2021-10-14] MEDS: FAMOTIDINE 20MG TAB PO SCH (10:00)
[2021-10-14 13:30] LABS: INR 1.11 (0.85-1.15)
[2021-10-14 13:31] LABS: PARTIAL THROMBOPLASTIN TIME 37.6 SEC (26.3-35.5)
[2021-10-14] MEDS ORDERED: LIDOCAINE HCL 1% MDV 50ML VIAL ONE (13:37)
[2021-10-14] MEDS ORDERED: HEPARIN 1,000 UNIT VIAL ONE (13:37)
[2021-10-14] MEDS ORDERED: HEPARIN 5,000 UNIT VIAL IV SCH (20:00)
[2021-10-14] MEDS: SIMVASTATIN 10 MG TABLET PO SCH (21:31)
[2021-10-14] MEDS: ROPINIROLE HCL 0.25 MG TABLET PO SCH (21:31)
[2021-10-14] MEDS: TRAMADOL HCL 50 MG TABLET PO PRN (21:31)
[2021-10-15] VITALS (7 sets, daily range): BP systolic 141–188; BP diastolic 46–82
[2021-10-15] MEDS: LABETALOL 20MG VIAL IV PRN ×2 (00:05→17:02)
[2021-10-15] MEDS: INSULIN HUMULIN R 100 UNIT/ML 3ML SQ SCH ×4 (06:48→21:00)
[2021-10-15] MEDS: FERROUS SULFATE 325 MG TABLET.DR PO SCH ×3 (10:08→21:45)
[2021-10-15] MEDS: LEVOTHYROXINE 25 MCG TABLET PO SCH (10:08)
[2021-10-15] MEDS: FAMOTIDINE 20MG TAB PO SCH (10:08)
[2021-10-15] MEDS: SUCRALFATE 1 GM TABLET PO SCH ×2 (10:08→20:26)
[2021-10-15] MEDS: Vitamin B Complex/Vit C/Folic Acid PO SCH (10:09)
[2021-10-15] MEDS: CLONIDINE HCL 0.1 MG TABLET PO SCH ×3 (10:09→21:45)
[2021-10-15] MEDS: HYDRALAZINE 25MG TABLET PO SCH ×3 (10:09→21:45)
[2021-10-15] MEDS: METOPROLOL TARTRATE 50 MG TAB PO SCH ×2 (10:09→21:45)
[2021-10-15] MEDS: CHLORHEXIDINE GLUCONATE 473 ML MOUTHWASH MM SCH ×2 (10:10→21:48)
[2021-10-15] MEDS: MEROPENEM 1 GM VIAL IV SCH (10:10)
[2021-10-15] MEDS: HEPARIN 5,000 UNIT VIAL SQ SCH (10:14)
[2021-10-15] MEDS: SEVELAMER HCL 800 MG TABLET PO SCH ×3 (10:15→17:01)
[2021-10-15] MEDS: TRAMADOL HCL 50 MG TABLET PO PRN ×2 (17:02→21:45)
[2021-10-15] MEDS: EPOETIN ALFA-EPBX (ESRD) 10,000 UNIT/ML VIAL SQ SCH (20:26)
[2021-10-15] MEDS ORDERED: BALSAM PERU/CASTOR OIL 60 GM TUBE TP SCH (21:00)
[2021-10-15] MEDS: ROPINIROLE HCL 0.25 MG TABLET PO SCH (21:45)
[2021-10-15] MEDS: SIMVASTATIN 10 MG TABLET PO SCH (21:45)
[2021-10-16] VITALS (25 sets, daily range): BP systolic 108–196; BP diastolic 55–95
[2021-10-16] MEDS: INSULIN HUMULIN R 100 UNIT/ML 3ML SQ SCH ×4 (06:45→20:13)
[2021-10-16] MEDS: CHLORHEXIDINE GLUCONATE 473 ML MOUTHWASH MM SCH ×3 (09:00→21:25)
[2021-10-16] MEDS: METOPROLOL TARTRATE 50 MG TAB PO SCH ×2 (09:00→20:12)
[2021-10-16] MEDS: CLONIDINE HCL 0.1 MG TABLET PO SCH ×3 (09:00→20:12)
[2021-10-16] MEDS: HYDRALAZINE 25MG TABLET PO SCH ×3 (09:00→20:12)
[2021-10-16 09:18] LABS: CREATININE 6.2 mg/dL (0.5-1.5); POTASSIUM 4.6 mmol/L (3.5-5.1)
[2021-10-16] MEDS: FERROUS SULFATE 325 MG TABLET.DR PO SCH ×3 (09:32→20:12)
[2021-10-16] MEDS: MEROPENEM 1 GM VIAL IV SCH (09:32)
[2021-10-16] MEDS: Vitamin B Complex/Vit C/Folic Acid PO SCH (09:32)
[2021-10-16] MEDS: FAMOTIDINE 20MG TAB PO SCH (09:32)
[2021-10-16] MEDS: SUCRALFATE 1 GM TABLET PO SCH ×2 (09:32→20:12)
[2021-10-16] MEDS: LEVOTHYROXINE 25 MCG TABLET PO SCH (09:38)
[2021-10-16] MEDS: SEVELAMER HCL 800 MG TABLET PO SCH ×3 (09:38→18:00)
[2021-10-16] MEDS: HEPARIN 5,000 UNIT VIAL SQ SCH (09:40)
[2021-10-16] MEDS: BALSAM PERU/CASTOR OIL 60 GM TUBE TP SCH ×3 (16:05→20:14)
[2021-10-16] MEDS ORDERED: 0.9% NACL 250ML 250 ML ONE (17:58)
[2021-10-16] MEDS: SIMVASTATIN 10 MG TABLET PO SCH (20:12)
[2021-10-16] MEDS: ROPINIROLE HCL 0.25 MG TABLET PO SCH (20:12)
[2021-10-16] MEDS ORDERED: TRAMADOL HCL 50 MG TABLET ONE (23:34)
[2021-10-16] MEDS ORDERED: TRAMADOL HCL 50 MG TABLET PO PRN (23:45)
[2021-10-17] VITALS (7 sets, daily range): BP systolic 145–197; BP diastolic 71–93
[2021-10-17] MEDS: LABETALOL 20MG VIAL IV PRN ×2 (02:52→11:57)
[2021-10-17 04:10] LABS: HEMATOCRIT 25.6 % (42-54); MEAN CORPUSCULAR HEMOGLOBIN 28.9 pg (27.0-33.0); MEAN CORPUSCULAR HGB CONC 32.4 g/dL (32.0-36.0); MEAN CORPUSCULAR VOLUME 89.2 fL (79-99); RED BLOOD CELL COUNT(AUTO) 2.87 MIL/uL (4.50-6.20); RED CELL DISTRIBUTION WIDTH 14.3 % (11.0-15.5); WHITE BLOOD COUNT (AUTO) 5.6 K/uL (4.8-10.8)
[2021-10-17 04:24] LABS: CREATININE 4.9 mg/dL (0.5-1.5); MAGNESIUM 1.9 mg/dL (1.80-2.40)
[2021-10-17] MEDS: INSULIN HUMULIN R 100 UNIT/ML 3ML SQ SCH ×3 (05:42→16:30)
[2021-10-17] MEDS: SEVELAMER HCL 800 MG TABLET PO SCH ×3 (08:24→16:59)
[2021-10-17] MEDS: METOPROLOL TARTRATE 50 MG TAB PO SCH (08:24)
[2021-10-17] MEDS: Vitamin B Complex/Vit C/Folic Acid PO SCH (08:24)
[2021-10-17] MEDS: FERROUS SULFATE 325 MG TABLET.DR PO SCH ×2 (08:24→14:22)
[2021-10-17] MEDS: FAMOTIDINE 20MG TAB PO SCH (08:24)
[2021-10-17] MEDS: MEROPENEM 1 GM VIAL IV SCH (08:25)
[2021-10-17] MEDS: LEVOTHYROXINE 25 MCG TABLET PO SCH (08:25)
[2021-10-17] MEDS: HYDRALAZINE 25MG TABLET PO SCH ×2 (08:25→14:22)
[2021-10-17] MEDS: SUCRALFATE 1 GM TABLET PO SCH (08:25)
[2021-10-17] MEDS: CLONIDINE HCL 0.1 MG TABLET PO SCH ×2 (08:25→14:23)
[2021-10-17] MEDS: CHLORHEXIDINE GLUCONATE 473 ML MOUTHWASH MM SCH (08:26)
[2021-10-17] MEDS: BALSAM PERU/CASTOR OIL 60 GM TUBE TP SCH ×3 (09:00→16:57)
[2021-10-17] MEDS: HEPARIN 5,000 UNIT VIAL SQ SCH (10:52)
[2021-10-17] MEDS ORDERED: [UNRECOGNIZED DRUG - CODE] SQ (15:09)
== END 2021-10-17 19:35 | DRG 480 ==
LOC: EDH 01:55 → EDHIP 04:42 → 4DH 08:05
PROVIDERS: ADMIT Internal Medicine Infectious Disease; ATTEND Internal Medicine Infectious Disease
PROC: 5A1D70Z Performance of Urinary Filtration, Intermittent, Less than 6 Hours Per Day (ICD-10-PCS; 2021-10-07)
PROC: 5A1D70Z Performance of Urinary Filtration, Intermittent, Less than 6 Hours Per Day (ICD-10-PCS; 2021-10-08)
PROC: 0QS6XZZ Reposition Right Upper Femur, External Approach (ICD-10-PCS; 2021-10-09)
PROC: 5A1D70Z Performance of Urinary Filtration, Intermittent, Less than 6 Hours Per Day (ICD-10-PCS; 2021-10-09)
PROC: 30233N1 Transfusion of Nonautologous Red Blood Cells into Peripheral Vein, Percutaneous Approach (ICD-10-PCS; 2021-10-09)
PROC: 0SS90ZZ Reposition Right Hip Joint, Open Approach (ICD-10-PCS; principal; 2021-10-10 09:33)
PROC: 5A1D70Z Performance of Urinary Filtration, Intermittent, Less than 6 Hours Per Day (ICD-10-PCS; 2021-10-12)
PROC: 037Y0ZZ Dilation of Upper Artery, Open Approach (ICD-10-PCS; 2021-10-12)
PROC: B51N1ZA Fluoroscopy of Left Upper Extremity Veins using Low Osmolar Contrast, Guidance (ICD-10-PCS; 2021-10-12)
PROC: B31J1ZZ Fluoroscopy of Left Upper Extremity Arteries using Low Osmolar Contrast (ICD-10-PCS; 2021-10-12)
PROC: 3E03317 Introduction of Other Thrombolytic into Peripheral Vein, Percutaneous Approach (ICD-10-PCS; 2021-10-12)
PROC: 5A1D70Z Performance of Urinary Filtration, Intermittent, Less than 6 Hours Per Day (ICD-10-PCS; 2021-10-14)
PROC: 0JH63XZ Insertion of Tunneled Vascular Access Device into Chest Subcutaneous Tissue and Fascia, Percutaneous Approach (ICD-10-PCS; 2021-10-14)
PROC: 02H633Z Insertion of Infusion Device into Right Atrium, Percutaneous Approach (ICD-10-PCS; 2021-10-14)
PROC: B5181ZA Fluoroscopy of Superior Vena Cava using Low Osmolar Contrast, Guidance (ICD-10-PCS; 2021-10-14)
PROC: B548ZZA Ultrasonography of Superior Vena Cava, Guidance (ICD-10-PCS; 2021-10-14)
PROC: 5A1D70Z Performance of Urinary Filtration, Intermittent, Less than 6 Hours Per Day (ICD-10-PCS; 2021-10-16)
DX: T84.020A Dislocation of internal right hip prosthesis, initial encounter (principal); N18.6 End stage renal disease; I12.0 Hypertensive chronic kidney disease with stage 5 chronic kidney disease or end stage renal disease; E87.1 Hypo-osmolality and hyponatremia; G93.40 Encephalopathy, unspecified; N39.0 Urinary tract infection, site not specified; T82.868A Thrombosis due to vascular prosthetic devices, implants and grafts, initial encounter; D63.1 Anemia in chronic kidney disease; K74.60 Unspecified cirrhosis of liver; E83.51 Hypocalcemia; E83.39 Other disorders of phosphorus metabolism; E11.22 Type 2 diabetes mellitus with diabetic chronic kidney disease; E11.51 Type 2 diabetes mellitus with diabetic peripheral angiopathy without gangrene; E78.5 Hyperlipidemia, unspecified; Z86.73 Personal history of transient ischemic attack (TIA), and cerebral infarction without residual deficits; Z89.511 Acquired absence of right leg below knee; Z83.3 Family history of diabetes mellitus; Z96.60 Presence of unspecified orthopedic joint implant; Z99.2 Dependence on renal dialysis; E87.5 Hyperkalemia; E03.9 Hypothyroidism, unspecified; Y79.2 Prosthetic and other implants, materials and accessory orthopedic devices associated with adverse incidents; Z20.822 Contact with and (suspected) exposure to COVID-19; F32.A Depression, unspecified; F41.9 Anxiety disorder, unspecified; I25.10 Atherosclerotic heart disease of native coronary artery without angina pectoris; L89.152 Pressure ulcer of sacral region, stage 2; Z87.01 Personal history of pneumonia (recurrent); R53.81 Other malaise; Z74.01 Bed confinement status; Z96.641 Presence of right artificial hip joint; X58.XXXA Exposure to other specified factors, initial encounter
CPT/HCPCS: 36415; 36558; 36905; 71045; 73502; 73503; 73552; 77001; 80048; 80053; 82948; 83605; 83735; 84132; 84484; 85014; 85018; 85025; 85027; 85610; 85730; 86704; 86706; 86850; 86900; 86901; 86923; 87340; 87635; 90935; 93005; 93971; 97039; C1750; C1757; C1769; C1894; G0378; J0360; J1100; J1644; J2185; J2250; J2405; J2704; J2710; J2795; J3010; J3490; J7030; J7040; J7050; J7070; P9016; Q9967

== ENCOUNTER 2022-01-19 10:36 | Inpatient (IN) | payer OTHER ==
[~2022-01-19] VITALS: Ht 165.1 cm; Wt 63.6 kg
[2022-01-19 11:05] LABS: BASOPHILS % (AUTO) 0.8 % (0.0-5.0); EOSINOPHILS % (AUTO) 11.5 % (0.0-8.0); HEMATOCRIT 27.8 % (42-54); MEAN CORPUSCULAR HEMOGLOBIN 31.2 pg (27.0-33.0); MEAN CORPUSCULAR HGB CONC 34.5 g/dL (32.0-36.0); MEAN CORPUSCULAR VOLUME 90.3 fL (79-99); MONOCYTES % (AUTO) 5.9 % (3.0-13.0); NEUTROPHILS % (AUTO) 52.6 % (40.0-77.0); PLATELET COUNT (AUTO) 153 K/uL (130-400); RED BLOOD CELL COUNT(AUTO) 3.08 MIL/uL (4.50-6.20); RED CELL DISTRIBUTION WIDTH 14.4 % (11.0-15.5); WHITE BLOOD COUNT (AUTO) 6.4 K/uL (4.8-10.8)
[2022-01-19 11:18] LABS: CREATININE 4.5 mg/dL (0.5-1.5); POTASSIUM 4.3 mmol/L (3.5-5.1)
[2022-01-19 11:22] LABS: ALBUMIN 2.1 g/dL (3.5-5.0); TOTAL PROTEIN, SERUM 6.4 g/dL (6.0-8.3)
[2022-01-19 11:39] LABS: B-TYPE NATRIURETIC PEPTIDE > 5000 pg/mL (0-100)
[2022-01-19 11:40] LABS: INR 1.11 (0.85-1.15)
[2022-01-19 11:41] LABS: PARTIAL THROMBOPLASTIN TIME 31.6 SEC (26.3-35.5)
[2022-01-19] MEDS ORDERED: ACETAMINOPHEN 500 MG TABLET PO ONE (14:00)
[2022-01-20] VITALS (19 sets, daily range): BP systolic 164–213; BP diastolic 95–146
[2022-01-20 10:37] LABS: EOSINOPHILS % (AUTO) 12.2 % (0.0-8.0); HEMATOCRIT 30.6 % (42-54); LYMPHOCYTES % (AUTO) 22.9 % (21.0-51.0); MEAN CORPUSCULAR HEMOGLOBIN 30.6 pg (27.0-33.0); NEUTROPHILS % (AUTO) 57.6 % (40.0-77.0); PLATELET COUNT (AUTO) 164 K/uL (130-400); RED CELL DISTRIBUTION WIDTH 14.4 % (11.0-15.5); WHITE BLOOD COUNT (AUTO) 7.1 K/uL (4.8-10.8)
[2022-01-20 10:47] LABS: CREATININE 4.9 mg/dL (0.5-1.5); POTASSIUM 4.6 mmol/L (3.5-5.1)
[2022-01-20] MEDS ORDERED: CLONIDINE HCL 0.2 MG TABLET PO ONE (11:07)
[2022-01-20] MEDS ORDERED: ALBU0.63 IH (12:06)
[2022-01-20] MEDS ORDERED: ONDA-104 PO (12:06)
[2022-01-20] MEDS ORDERED: ACET-2247 PO (12:06)
[2022-01-20] MEDS ORDERED: FAMO-136 PO (12:06)
[2022-01-20] MEDS ORDERED: FOLI0.8T2 PO (12:06)
[2022-01-20] MEDS ORDERED: MIDO10TA PO (12:06)
[2022-01-20] MEDS ORDERED: LEVO50CA4 PO (12:06)
[2022-01-20] MEDS: CLONIDINE HCL 0.1 MG TABLET PO PRN ×2 (15:13→23:05)
[2022-01-20] MEDS ORDERED: METOPROLOL TARTRATE 1 MG/ML 5ML VIAL IV ONE (17:30)
[2022-01-20] MEDS: HEPARIN 5,000 UNIT VIAL IV PRN (18:05)
[2022-01-20] MEDS ORDERED: HYDRALAZINE 25MG TABLET ONE (19:18)
[2022-01-20] MEDS ORDERED: METOPROLOL TARTRATE 50 MG TAB ONE (19:19)
[2022-01-20] MEDS: HYDRALAZINE 25MG TABLET PO SCH (19:47)
[2022-01-20] MEDS: METOPROLOL TARTRATE 50 MG TAB PO SCH (19:47)
[2022-01-20] MEDS ORDERED: ONDANSETRON 4MG TABLET PO PRN (23:00)
[2022-01-20] MEDS ORDERED: ALBUTEROL 0.083% 2.5 MG/3 ML INH IH PRN (23:45)
[2022-01-21 03:37] VITALS: BP 194/100
[2022-01-21 05:22] LABS: EOSINOPHILS % (AUTO) 9.9 % (0.0-8.0); HEMATOCRIT 28.3 % (42-54); LYMPHOCYTES % (AUTO) 28.2 % (21.0-51.0); MEAN CORPUSCULAR HEMOGLOBIN 31.1 pg (27.0-33.0); MEAN CORPUSCULAR HGB CONC 34.6 g/dL (32.0-36.0); MEAN CORPUSCULAR VOLUME 89.8 fL (79-99); NEUTROPHILS % (AUTO) 53.7 % (40.0-77.0); PLATELET COUNT (AUTO) 142 K/uL (130-400); RED BLOOD CELL COUNT(AUTO) 3.15 MIL/uL (4.50-6.20); RED CELL DISTRIBUTION WIDTH 14.3 % (11.0-15.5); WHITE BLOOD COUNT (AUTO) 6.3 K/uL (4.8-10.8)
[2022-01-21 05:37] LABS: ALBUMIN 2.1 g/dL (3.5-5.0); CREATININE 3.9 mg/dL (0.5-1.5); MAGNESIUM 1.9 mg/dL (1.80-2.40); PHOSPHORUS 4.4 mg/dL (2.5-4.9); TOTAL PROTEIN, SERUM 6.3 g/dL (6.0-8.3)
[2022-01-21] MEDS ORDERED: DEXTROSE 50%-WATER 50 ML DISP.SYRIN IV ONE (05:55)
[2022-01-21] MEDS: LEVOTHYROXINE 50 MCG TABLET PO SCH ×2 (06:19→08:54)
[2022-01-21 07:55] VITALS: BP 208/96
[2022-01-21] MEDS: Vitamin B Complex/Vit C/Folic Acid PO SCH (08:53)
[2022-01-21] MEDS: METOPROLOL TARTRATE 50 MG TAB PO SCH ×2 (08:53→19:56)
[2022-01-21] MEDS: FAMOTIDINE 20MG TAB PO SCH (08:54)
[2022-01-21] MEDS ORDERED: Vitamin B Complex/Vit C/Folic Acid PO SCH (09:00)
[2022-01-21] MEDS: HYDRALAZINE 25MG TABLET PO SCH ×3 (10:20→19:56)
[2022-01-21 12:29] VITALS: BP 193/92
[2022-01-21] MEDS ORDERED: LISINOPRIL 20 MG TABLET PO SCH (13:30)
[2022-01-21 20:12] VITALS: BP 211/101
[2022-01-21] MEDS: CLONIDINE HCL 0.1 MG TABLET PO PRN (20:40)
[2022-01-21 21:11] LABS: HEPATITIS B SURFACE ANTIGEN Non-Reactive (Nonreactive)
[2022-01-21 23:11] VITALS: BP 206/98
[2022-01-21 23:54] VITALS: BP 182/98
[2022-01-22] VITALS (23 sets, daily range): BP systolic 151–209; BP diastolic 70–97
[2022-01-22] MEDS ORDERED: AMLODIPINE 5 MG TAB PO STA (00:33)
[2022-01-22] MEDS ORDERED: LISINOPRIL 20 MG TABLET PO STA (00:33)
[2022-01-22] MEDS: AMLODIPINE 5 MG TAB PO SCH (09:12)
[2022-01-22] MEDS: FAMOTIDINE 20MG TAB PO SCH (09:13)
[2022-01-22] MEDS: LISINOPRIL 20 MG TABLET PO SCH (09:13)
[2022-01-22] MEDS: METOPROLOL TARTRATE 50 MG TAB PO SCH ×2 (09:13→20:46)
[2022-01-22] MEDS: Vitamin B Complex/Vit C/Folic Acid PO SCH (09:13)
[2022-01-22] MEDS: HYDRALAZINE 25MG TABLET PO SCH ×4 (09:14→20:46)
[2022-01-22] MEDS: HEPARIN 5,000 UNIT VIAL IV PRN (13:21)
[2022-01-22] MEDS: HONEY 1 APPL/ML TUBE TP SCH (16:39)
[2022-01-22] MEDS ORDERED: PHARMACY COMMUNICATION MISC SCH (21:00)
[2022-01-23] VITALS (17 sets, daily range): BP systolic 144–189; BP diastolic 69–97
[2022-01-23 04:42] LABS: CREATININE 3.9 mg/dL (0.5-1.5); POTASSIUM 3.7 mmol/L (3.5-5.1)
[2022-01-23 04:51] LABS: EOSINOPHILS % (AUTO) 9.5 % (0.0-8.0); HEMATOCRIT 27.4 % (42-54); LYMPHOCYTES % (AUTO) 24.6 % (21.0-51.0); MEAN CORPUSCULAR HEMOGLOBIN 30.7 pg (27.0-33.0); MEAN CORPUSCULAR HGB CONC 34.3 g/dL (32.0-36.0); MEAN CORPUSCULAR VOLUME 89.5 fL (79-99); NEUTROPHILS % (AUTO) 57.6 % (40.0-77.0); PLATELET COUNT (AUTO) 167 K/uL (130-400); RED BLOOD CELL COUNT(AUTO) 3.06 MIL/uL (4.50-6.20); RED CELL DISTRIBUTION WIDTH 14.3 % (11.0-15.5); WHITE BLOOD COUNT (AUTO) 6.3 K/uL (4.8-10.8)
[2022-01-23] MEDS: LEVOTHYROXINE 50 MCG TABLET PO SCH (06:31)
[2022-01-23] MEDS: Vitamin B Complex/Vit C/Folic Acid PO SCH (07:36)
[2022-01-23] MEDS: LISINOPRIL 20 MG TABLET PO SCH (07:36)
[2022-01-23] MEDS: AMLODIPINE 5 MG TAB PO SCH (07:36)
[2022-01-23] MEDS: FAMOTIDINE 20MG TAB PO SCH (07:37)
[2022-01-23] MEDS: METOPROLOL TARTRATE 50 MG TAB PO SCH ×2 (07:37→20:55)
[2022-01-23] MEDS: HONEY 1 APPL/ML TUBE TP SCH (07:37)
[2022-01-23] MEDS: HYDRALAZINE 25MG TABLET PO SCH ×3 (07:37→20:55)
[2022-01-23] MEDS: CLONIDINE HCL 0.1 MG TABLET PO PRN (16:10)
[2022-01-23] MEDS: HEPARIN 5,000 UNIT VIAL IV PRN (17:26)
[2022-01-23] MEDS: EPOETIN ALFA-EPBX (NON-ESRD) 10,000 UNIT/ML VIAL SQ SCH (21:00)
[2022-01-23] MEDS: ACETAMINOPHEN 325 MG TAB PO PRN (21:03)
[2022-01-24] MEDS: CLONIDINE HCL 0.1 MG TABLET PO PRN ×2 (00:56→21:04)
[2022-01-24 03:50] VITALS: BP 182/85
[2022-01-24] MEDS: LEVOTHYROXINE 50 MCG TABLET PO SCH (06:47)
[2022-01-24] MEDS: AMLODIPINE 5 MG TAB PO SCH (06:48)
[2022-01-24] MEDS: LISINOPRIL 20 MG TABLET PO SCH (06:48)
[2022-01-24 08:23] VITALS: BP 136/28
[2022-01-24] MEDS: MEROPENEM 1 GM VIAL IVP SCH (09:47)
[2022-01-24] MEDS: Vitamin B Complex/Vit C/Folic Acid PO SCH (09:47)
[2022-01-24] MEDS: METOPROLOL TARTRATE 50 MG TAB PO SCH ×2 (09:48→21:05)
[2022-01-24] MEDS: HYDRALAZINE 25MG TABLET PO SCH ×3 (09:48→21:04)
[2022-01-24] MEDS: HONEY 1 APPL/ML TUBE TP SCH (09:48)
[2022-01-24] MEDS: FAMOTIDINE 20MG TAB PO SCH (09:48)
[2022-01-24 12:37] VITALS: BP 101/42
[2022-01-24 18:04] VITALS: BP 202/42
[2022-01-24 20:16] VITALS: BP 191/94
[2022-01-24] MEDS: ACETAMINOPHEN 325 MG TAB PO PRN (21:14)
[2022-01-25] VITALS (21 sets, daily range): BP systolic 151–195; BP diastolic 53–96
[2022-01-25] MEDS: LEVOTHYROXINE 50 MCG TABLET PO SCH (05:58)
[2022-01-25] MEDS: CLONIDINE HCL 0.1 MG TABLET PO PRN (05:59)
[2022-01-25] MEDS: ACETAMINOPHEN 325 MG TAB PO PRN (06:07)
[2022-01-25] MEDS: MEROPENEM 1 GM VIAL IVP SCH (10:24)
[2022-01-25] MEDS: METOPROLOL TARTRATE 50 MG TAB PO SCH ×2 (10:24→21:47)
[2022-01-25] MEDS: AMLODIPINE 5 MG TAB PO SCH (10:24)
[2022-01-25] MEDS: HYDRALAZINE 25MG TABLET PO SCH ×3 (10:24→21:47)
[2022-01-25] MEDS: HONEY 1 APPL/ML TUBE TP SCH (10:25)
[2022-01-25] MEDS: Vitamin B Complex/Vit C/Folic Acid PO SCH (10:25)
[2022-01-25] MEDS: LISINOPRIL 20 MG TABLET PO SCH (10:25)
[2022-01-25] MEDS: FAMOTIDINE 20MG TAB PO SCH (10:25)
[2022-01-25] MEDS ORDERED: ACETAMINOPHEN WITH CODEINE 1 TAB TAB ONE (15:42)
[2022-01-25] MEDS: HEPARIN 5,000 UNIT VIAL IV PRN (18:37)
[2022-01-26] VITALS (7 sets, daily range): BP systolic 149–175; BP diastolic 61–96
[2022-01-26 05:14] LABS: MEAN CORPUSCULAR HEMOGLOBIN 30.8 pg (27.0-33.0); MEAN CORPUSCULAR HGB CONC 34.5 g/dL (32.0-36.0); MEAN CORPUSCULAR VOLUME 89.2 fL (79-99); PLATELET COUNT (AUTO) 156 K/uL (130-400); RED BLOOD CELL COUNT(AUTO) 3.25 MIL/uL (4.50-6.20); RED CELL DISTRIBUTION WIDTH 14.4 % (11.0-15.5); WHITE BLOOD COUNT (AUTO) 5.2 K/uL (4.8-10.8)
[2022-01-26 05:29] LABS: CREATININE 3.5 mg/dL (0.5-1.5); PHOSPHORUS 4.3 mg/dL (2.5-4.9); POTASSIUM 3.7 mmol/L (3.5-5.1)
[2022-01-26 05:39] LABS: BASOPHILS % (MANUAL) 1 % (0-2); EOSINOPHILS % (MANUAL) 14 % (1-6); LYMPHOCYTES % (MANUAL) 22 % (22-44); MONOCYTES % (MANUAL) 3 % (2-9); SEGMENTED NEUTROPHILS % 60 % (40-70)
[2022-01-26 05:40] LABS: MAN.DIFF COMMENT-IMPRESSION MANUAL DIFFERENTIAL
[2022-01-26 05:41] LABS: PLATELET MORPHOLOGY COMMENT ADEQUATE
[2022-01-26] MEDS: LEVOTHYROXINE 50 MCG TABLET PO SCH (06:51)
[2022-01-26] MEDS: ACETAMINOPHEN 325 MG TAB PO PRN ×2 (06:52→22:01)
[2022-01-26] MEDS: FAMOTIDINE 20MG TAB PO SCH (08:41)
[2022-01-26] MEDS: HYDRALAZINE 25MG TABLET PO SCH ×3 (08:42→20:44)
[2022-01-26] MEDS: Vitamin B Complex/Vit C/Folic Acid PO SCH (08:42)
[2022-01-26] MEDS: AMLODIPINE 5 MG TAB PO SCH (08:42)
[2022-01-26] MEDS: ACETAMINOPHEN WITH CODEINE 1 TAB TAB PO PRN (08:43)
[2022-01-26] MEDS: LISINOPRIL 20 MG TABLET PO SCH (08:43)
[2022-01-26] MEDS: MEROPENEM 1 GM VIAL IVP SCH (08:43)
[2022-01-26] MEDS: METOPROLOL TARTRATE 50 MG TAB PO SCH ×2 (08:43→20:44)
[2022-01-26] MEDS: HONEY 1 APPL/ML TUBE TP SCH (08:44)
[2022-01-26] MEDS: EPOETIN ALFA-EPBX (NON-ESRD) 10,000 UNIT/ML VIAL SQ SCH (20:45)
[2022-01-27] VITALS (22 sets, daily range): BP systolic 142–196; BP diastolic 68–94
[2022-01-27 04:43] LABS: HEMATOCRIT 29.1 % (42-54); MEAN CORPUSCULAR HEMOGLOBIN 31.1 pg (27.0-33.0); MEAN CORPUSCULAR HGB CONC 34.4 g/dL (32.0-36.0); MEAN CORPUSCULAR VOLUME 90.4 fL (79-99); PLATELET COUNT (AUTO) 174 K/uL (130-400); RED BLOOD CELL COUNT(AUTO) 3.22 MIL/uL (4.50-6.20); RED CELL DISTRIBUTION WIDTH 14.6 % (11.0-15.5); WHITE BLOOD COUNT (AUTO) 6.5 K/uL (4.8-10.8)
[2022-01-27 05:01] LABS: CREATININE 4.2 mg/dL (0.5-1.5); PHOSPHORUS 5.4 mg/dL (2.5-4.9)
[2022-01-27 06:20] LABS: EOSINOPHILS % (MANUAL) 15 % (1-6); LYMPHOCYTES % (MANUAL) 26 % (22-44); MONOCYTES % (MANUAL) 2 % (2-9); SEGMENTED NEUTROPHILS % 57 % (40-70)
[2022-01-27 06:21] LABS: MAN.DIFF COMMENT-IMPRESSION MANUAL DIFFERENTIAL; PLATELET MORPHOLOGY COMMENT ADEQUATE
[2022-01-27] MEDS: LEVOTHYROXINE 50 MCG TABLET PO SCH (06:29)
[2022-01-27] MEDS: ACETAMINOPHEN 325 MG TAB PO PRN ×2 (06:32→21:47)
[2022-01-27] MEDS: Vitamin B Complex/Vit C/Folic Acid PO SCH (09:04)
[2022-01-27] MEDS: METOPROLOL TARTRATE 50 MG TAB PO SCH ×2 (09:04→20:11)
[2022-01-27] MEDS: FAMOTIDINE 20MG TAB PO SCH (09:04)
[2022-01-27] MEDS: LISINOPRIL 20 MG TABLET PO SCH (09:04)
[2022-01-27] MEDS: HYDRALAZINE 25MG TABLET PO SCH ×3 (09:04→20:11)
[2022-01-27] MEDS: AMLODIPINE 5 MG TAB PO SCH (09:04)
[2022-01-27] MEDS: MEROPENEM 1 GM VIAL IVP SCH (09:05)
[2022-01-27] MEDS: HONEY 1 APPL/ML TUBE TP SCH (09:45)
[2022-01-27] MEDS ORDERED: EPOETIN ALFA-EPBX (NON-ESRD) 10,000 UNIT/ML VIAL SQ SCH (11:30)
[2022-01-27] MEDS: HEPARIN 5,000 UNIT VIAL IV PRN (11:51)
[2022-01-27] MEDS ORDERED: VANCOMYCIN PROTOCOL PER PHARMACY IV SCH (14:30)
[2022-01-27] MEDS ORDERED: VANCOMYCIN 1.25 GM/250 ML BAG 250 ML IV ONE (15:00)
[2022-01-27] MEDS: ACETAMINOPHEN WITH CODEINE 1 TAB TAB PO PRN (17:14)
[2022-01-28 03:37] VITALS: BP 178/77
[2022-01-28 04:11] VITALS: BP 168/75
[2022-01-28 05:33] LABS: BASOPHILS % (AUTO) 1.3 % (0.0-5.0); EOSINOPHILS % (AUTO) 13.4 % (0.0-8.0); HEMATOCRIT 28.7 % (42-54); LYMPHOCYTES % (AUTO) 26.5 % (21.0-51.0); MEAN CORPUSCULAR HEMOGLOBIN 31.2 pg (27.0-33.0); MEAN CORPUSCULAR HGB CONC 34.8 g/dL (32.0-36.0); MEAN CORPUSCULAR VOLUME 89.4 fL (79-99); MONOCYTES % (AUTO) 6.6 % (3.0-13.0); PLATELET COUNT (AUTO) 157 K/uL (130-400); RED BLOOD CELL COUNT(AUTO) 3.21 MIL/uL (4.50-6.20); RED CELL DISTRIBUTION WIDTH 14.5 % (11.0-15.5); WHITE BLOOD COUNT (AUTO) 5.3 K/uL (4.8-10.8)
[2022-01-28 05:38] LABS: CREATININE 3.9 mg/dL (0.5-1.5); POTASSIUM 3.7 mmol/L (3.5-5.1)
[2022-01-28] MEDS: FAMOTIDINE 20MG TAB PO SCH (07:57)
[2022-01-28] MEDS: AMLODIPINE 5 MG TAB PO SCH (07:58)
[2022-01-28] MEDS: Vitamin B Complex/Vit C/Folic Acid PO SCH (07:58)
[2022-01-28 07:59] VITALS: BP 172/74
[2022-01-28] MEDS: LEVOTHYROXINE 50 MCG TABLET PO SCH (07:59)
[2022-01-28] MEDS: LISINOPRIL 20 MG TABLET PO SCH (07:59)
[2022-01-28] MEDS: MEROPENEM 1 GM VIAL IVP SCH (08:00)
[2022-01-28] MEDS: METOPROLOL TARTRATE 50 MG TAB PO SCH ×2 (09:00→19:53)
[2022-01-28] MEDS: HYDRALAZINE 25MG TABLET PO SCH ×3 (10:07→19:53)
[2022-01-28] MEDS: HONEY 1 APPL/ML TUBE TP SCH (10:09)
[2022-01-28 11:50] VITALS: BP 163/77
[2022-01-28] MEDS: ACETAMINOPHEN WITH CODEINE 1 TAB TAB PO PRN (13:33)
[2022-01-28 16:00] VITALS: BP 190/93
[2022-01-28] MEDS: EPOETIN ALFA-EPBX (NON-ESRD) 10,000 UNIT/ML VIAL SQ SCH (19:54)
[2022-01-28 20:13] VITALS: BP 177/83
[2022-01-29] VITALS (22 sets, daily range): BP systolic 112–184; BP diastolic 62–100
[2022-01-29] MEDS: LEVOTHYROXINE 50 MCG TABLET PO SCH (05:27)
[2022-01-29 05:45] LABS: HEMATOCRIT 31.8 % (42-54); MEAN CORPUSCULAR HEMOGLOBIN 30.7 pg (27.0-33.0); MEAN CORPUSCULAR HGB CONC 34.9 g/dL (32.0-36.0); MEAN CORPUSCULAR VOLUME 87.8 fL (79-99); PLATELET COUNT (AUTO) 184 K/uL (130-400); RED BLOOD CELL COUNT(AUTO) 3.62 MIL/uL (4.50-6.20); RED CELL DISTRIBUTION WIDTH 14.6 % (11.0-15.5); WHITE BLOOD COUNT (AUTO) 8.6 K/uL (4.8-10.8)
[2022-01-29 06:04] LABS: CREATININE 4.5 mg/dL (0.5-1.5); PHOSPHORUS 5.4 mg/dL (2.5-4.9); POTASSIUM 4.1 mmol/L (3.5-5.1)
[2022-01-29 06:29] LABS: EOSINOPHILS % (MANUAL) 14 % (1-6); LYMPHOCYTES % (MANUAL) 21 % (22-44); SEGMENTED NEUTROPHILS % 65 % (40-70)
[2022-01-29 06:30] LABS: MAN.DIFF COMMENT-IMPRESSION MANUAL DIFFERENTIAL; PLATELET MORPHOLOGY COMMENT ADEQUATE
[2022-01-29] MEDS: MEROPENEM 1 GM VIAL IVP SCH (08:24)
[2022-01-29] MEDS: HYDRALAZINE 25MG TABLET PO SCH ×2 (08:25→14:50)
[2022-01-29] MEDS: Vitamin B Complex/Vit C/Folic Acid PO SCH (08:25)
[2022-01-29] MEDS: LISINOPRIL 20 MG TABLET PO SCH (08:25)
[2022-01-29] MEDS: AMLODIPINE 5 MG TAB PO SCH (08:26)
[2022-01-29] MEDS: HONEY 1 APPL/ML TUBE TP SCH (08:26)
[2022-01-29] MEDS: METOPROLOL TARTRATE 50 MG TAB PO SCH (08:26)
[2022-01-29] MEDS: FAMOTIDINE 20MG TAB PO SCH (08:26)
[2022-01-29] MEDS: ACETAMINOPHEN WITH CODEINE 1 TAB TAB PO PRN (09:11)
[2022-01-29] MEDS: HEPARIN 5,000 UNIT VIAL IV PRN (13:15)
[2022-01-29] MEDS ORDERED: VANCOMYCIN 750MG VIAL IVPB SCH (15:00)
[2022-01-29] MEDS ORDERED: 0.9% NACL 250ML 250 ML IV SCH (15:00)
== END 2022-01-29 19:00 | DRG 640 ==
LOC: EDH 10:36 → EDHIP 01-20 10:00 → OBSVTOIN 01-20 10:00 → 3CH 01-20 12:24
PROVIDERS: ADMIT Internal Medicine Infectious Disease; ATTEND Internal Medicine Infectious Disease
PROC: 5A1D70Z Performance of Urinary Filtration, Intermittent, Less than 6 Hours Per Day (ICD-10-PCS; principal; 2022-01-20)
PROC: 5A1D70Z Performance of Urinary Filtration, Intermittent, Less than 6 Hours Per Day (ICD-10-PCS; 2022-01-22)
PROC: 5A1D70Z Performance of Urinary Filtration, Intermittent, Less than 6 Hours Per Day (ICD-10-PCS; 2022-01-23)
PROC: 5A1D70Z Performance of Urinary Filtration, Intermittent, Less than 6 Hours Per Day (ICD-10-PCS; 2022-01-25)
PROC: 5A1D70Z Performance of Urinary Filtration, Intermittent, Less than 6 Hours Per Day (ICD-10-PCS; 2022-01-27)
PROC: 5A1D70Z Performance of Urinary Filtration, Intermittent, Less than 6 Hours Per Day (ICD-10-PCS; 2022-01-29)
DX: E87.70 Fluid overload, unspecified (principal); N18.6 End stage renal disease; I16.1 Hypertensive emergency; Z16.24 Resistance to multiple antibiotics; I12.0 Hypertensive chronic kidney disease with stage 5 chronic kidney disease or end stage renal disease; D64.9 Anemia, unspecified; E11.51 Type 2 diabetes mellitus with diabetic peripheral angiopathy without gangrene; E78.5 Hyperlipidemia, unspecified; Z96.651 Presence of right artificial knee joint; E03.9 Hypothyroidism, unspecified; K74.60 Unspecified cirrhosis of liver; E11.22 Type 2 diabetes mellitus with diabetic chronic kidney disease; I27.20 Pulmonary hypertension, unspecified; F41.9 Anxiety disorder, unspecified; Z89.511 Acquired absence of right leg below knee; Z83.3 Family history of diabetes mellitus; Z74.01 Bed confinement status; Z91.19 Patient's noncompliance with other medical treatment and regimen; Z86.73 Personal history of transient ischemic attack (TIA), and cerebral infarction without residual deficits; Z99.2 Dependence on renal dialysis; T81.89XA Other complications of procedures, not elsewhere classified, initial encounter
CPT/HCPCS: 36415; 70450; 71045; 78315; 80048; 80053; 82140; 82948; 83735; 83880; 84100; 84484; 85025; 85610; 85730; 86704; 86706; 87070; 87076; 87077; 87186; 87340; 90935; 92610; 93005; 97039; A9503; G0378; J1644; J2185; J3490; J7070